=== PATIENT | female | born 1945 | race Caucasian/White ===

== ENCOUNTER 2021-10-27 10:02 | Emergency (ER) | payer MEDICARE, SELFPAY ==
--- NOTE | 2021-10-27 10:12 | ED.GENADULT ---
HPI - General Adult General Chief complaint: Urogenital-Female Stated complaint: Uti complaint Time Seen by Provider: 10/27/21 10:06 History of Present Illness HPI narrative: 76 y/o female. PMHx Presents to [facility] today w/acute complaints of urinary frequency, urgency, and dysuria for the past 24 hours. Client reports a history of frequent UTI, and notes that her initial symptoms generally start very similar to what she has been currently experiencing. She does follow w/OP urology, and tells me that she has had prior cystoscopies, however no significant complications had been appreciated. Denies fevers. No abdominal pain, N/V. No pelvic pain or vaginal discharge. Denies flank pain, hematuria. She has been taking home Azo w/some reliefs. She is without additional acute c/o upon PE. Related Data Home Medications Medication Instructions Recorded Confirmed atenolol 25 mg tablet 25 mg DAILY 10/27/21 10/27/21 atorvastatin 10 mg tablet 10 mg DAILY 10/27/21 10/27/21 hydrochlorothiazide 12.5 mg tablet 12.5 mg DAILY 10/27/21 10/27/21 lisinopril 20 mg tablet 20 mg DAILY 10/27/21 10/27/21 metoprolol succinate 25 mg 25 mg PO DAILY 10/27/21 10/27/21 tablet,extended release 24 hr pantoprazole 40 mg tablet,delayed 40 mg PO BID 10/27/21 10/27/21 release raloxifene 60 mg tablet 60 mg DAILY 10/27/21 10/27/21 Allergies Allergy/AdvReac Type Severity Reaction Status Date / Time No Known Allergies Allergy Verified 10/27/21 10:27 Review of Systems Review of Systems: CONSTITUTIONAL: Denies fever, chills, sweats. EYES: Denies visual changes, redness, discharge. ENT: Denies rhinorrhea, congestion, sore throat, otalgia. CARDIOVASCULAR: Denies chest pain, palpitations, edema. RESPIRATORY: Denies dyspnea, wheezing, cough GASTROINTESTINAL: Denies abdominal pain, nausea, vomiting, diarrhea. GENITOURINARY: Positive urinary frequency, dysuria. No hematuria, abnormal discharge SKIN: Denies rash or itching. MUSCULOSKELETAL: Denies acute back pain, joint pain, or myalgia. NEUROLOGIC: Denies numbness, or focal weakness. PSYCHIATRIC: Denies anxiety or depression. Exam Narrative: GENERAL: This is a well-nourished, well-developed adult, in no apparent distress. HEAD: normocephalic. NOSE: External nose normal. THROAT: Mucous membranes moist. NECK: Neck supple. CARDIOVASCULAR: Regular rate and rhythm. RESPIRATORY: Clear to auscultation. GASTROINTESTINAL: Abdomen soft, non-tender, nondistended. Bowel sounds are active. No signs of acute abdomen. No CVA tenderness. SKIN: warm, intact. NEURO: Alert, and age appropriate. Course Course Emergency Course: Level of Care: Express Care Visit Vital Signs Vital signs: Vital Signs Temperature 36.9 C 10/27/21 10:17 Pulse Rate 66 10/27/21 10:17 Respiratory Rate 18 10/27/21 10:17 Blood Pressure 131/68 10/27/21 10:17 Pulse Oximetry 96 10/27/21 10:17 Oxygen Delivery Room Air 10/27/21 10:17 Temperature 36.9 C 10/27/21 10:17 Pulse Rate 66 10/27/21 10:17 Respiratory Rate 18 10/27/21 10:17 Blood Pressure 131/68 10/27/21 10:17 Pulse Oximetry 96 10/27/21 10:17 Oxygen Delivery Room Air 10/27/21 10:17 Medical Decision Making MDM Narrative Medical decision making narrative: -UTI s/s for the past 24 hours, with Hx including frequent UTI, follows w/Urology. -Urine Dip: 1 + Leukocytes, negative nitrites, 2 + blood. -Afebrile, non-tachycardic, otherwise appears non-toxic. -UTI/Cytitis: Start oral Bactrim OP regimen as directed. -Send for additional CX analysis. -Resume all other AZO and OTC remedies as needed for other symptomatic reliefs. -Urology F/U 1 WK. -ER W/Emergent status changes. Pt agrees. Differential Diagnosis Differential Diagnosis: Differential Diagnosis: Consideration of the following conditions may be warranted for the presenting problem, they are not final diagnoses: Likely UTI, Cystitis, Nephrolithiasis
[2021-10-27 10:17] VITALS: BP 131/68; PULSE 66; RESP 18; TEMP 36.9; O2SAT 96
== END 2021-10-27 10:37 | disposition home or self-care (01) ==
PROVIDERS: Emergency Provider Nurse Practitioner Adult Health; PCP Physician Assistant
DX: N30.90 Cystitis, unspecified without hematuria (principal)
CPT/HCPCS: 81003; 87077; 87086; 87186; 99203; G0463

== ENCOUNTER 2022-07-28 09:54 | Emergency (ER) | payer MEDICARE, SELFPAY ==
[2022-07-28 10:02] VITALS: BP 120/64; PULSE 58; RESP 16; TEMP 36.1; O2SAT 98
--- NOTE | 2022-07-28 10:24 | ED.FEMALEGU ---
HPI - Female Genitourinary General Chief complaint: Urogenital-Female Stated complaint: Female Urogenital Time Seen by Provider: 07/28/22 10:21 Source: patient and RN notes reviewed Mode of arrival: ambulatory Limitations: no limitations History of Present Illness HPI Narrative: 68-year-old female presents with concern for urinary tract infection. She reports urine retention, urgency, burning it started last night. Reports she has gone frequent UTIs, however she has not had 1 since October. She seen a urologist and had a normal exam. She denies fever, aches, chills, sweats, back pain, nausea, vomiting, abdominal pain. Reports suprapubic pressure MD elicited complaint: UTI Related Data Home Medications Medication Instructions Recorded Confirmed atenolol 25 mg tablet 25 mg DAILY 10/27/21 07/28/22 atorvastatin 10 mg tablet 10 mg DAILY 10/27/21 07/28/22 hydrochlorothiazide 12.5 mg tablet 12.5 mg DAILY 10/27/21 07/28/22 lisinopril 20 mg tablet 20 mg DAILY 10/27/21 07/28/22 metoprolol succinate 25 mg 25 mg PO DAILY 10/27/21 07/28/22 tablet,extended release 24 hr pantoprazole 40 mg tablet,delayed 40 mg PO BID 10/27/21 07/28/22 release raloxifene 60 mg tablet 60 mg DAILY 10/27/21 07/28/22 Allergies Allergy/AdvReac Type Severity Reaction Status Date / Time No Known Allergies Allergy Verified 07/28/22 09:56 Review of Systems Review of Systems: CONSTITUTIONAL: Denies malaise, chills, sweats, or fever. CARDIOVASCULAR: Denies chest pain, palpitations, or edema. RESPIRATORY: Denies cough or dyspnea. GASTROINTESTINAL: Denies abdominal pain, nausea, vomiting, diarrhea GENITOURINARY: Reports dysuria, frequency, urgency, suprapubic pressure. Denies flank pain or hematuria. SKIN: Denies rash or itching. MUSCULOSKELETAL: Denies back pain or myalgia. All systems reviewed & are unremarkable except as noted in HPI and below PMFSH Comments At time of signature, agree with nursing past medical, surgical, social and family history. There is no relevant family history pertinent to the presenting complaint Exam Narrative: GENERAL: Well-appearing, well-nourished, and in no acute distress. HEAD: Normocephalic. EYES: PERRLA, conjunctivae clear. NECK: Supple. No lymphadenopathy CHEST: Clear to auscultation. No respiratory distress. HEART: Regular rate and rhythm. ABDOMEN: Soft, nontender upon palpation, nondistended, normal active bowel sounds, no palpable or pulsatile masses, no guarding. No CVA tenderness SKIN: Warm, dry, no rash. NEURO: Alert and oriented x3. PSYCH: Normal mood and affect Course Course Emergency Course: Patient is aware of diagnosis, understands and agrees to treatment plan. Anticipatory guidance given. Patient agrees to follow-up as directed and is aware of reasons to seek care at the emergency department. Portions of this record may have been created with voice recognition software Level of Care: Express Care Visit Vital Signs Vital signs: Vital Signs Temperature 97.0 F L 07/28/22 10:02 Pulse Rate 58 L 07/28/22 10:02 Respiratory Rate 16 07/28/22 10:02 Blood Pressure 120/64 07/28/22 10:02 Pulse Oximetry 98 07/28/22 10:02 Oxygen Delivery Room Air 07/28/22 10:02 Temperature 97.0 F L 07/28/22 10:02 Pulse Rate 58 L 07/28/22 10:02 Respiratory Rate 16 07/28/22 10:02 Blood Pressure 120/64 07/28/22 10:02 Pulse Oximetry 98 07/28/22 10:02 Oxygen Delivery Room Air 07/28/22 10:02 Reviewed. MDM - Female Genitourinary MDM Narrative Medical decision making narrative: Exam findings and UA show no acute concerns or changes; patient is non-toxic appearing and is in no distress. Patient is appropriate for outpatient treatment and follow-up. Differential Diagnosis Differential diagnosis: Likely urinary tract infection and cystitis Lab Data Labs: Urine Glucose Negative Reference Range: N
== END 2022-07-28 10:30 | disposition home or self-care (01) ==
PROVIDERS: Emergency Provider Nurse Practitioner; PCP Physician Assistant
DX: N39.0 Urinary tract infection, site not specified (principal); E78.00 Pure hypercholesterolemia, unspecified; I10 Essential (primary) hypertension; K21.9 Gastro-esophageal reflux disease without esophagitis; M19.90 Unspecified osteoarthritis, unspecified site; Z96.653 Presence of artificial knee joint, bilateral; M81.0 Age-related osteoporosis without current pathological fracture
CPT/HCPCS: 81003; 87077; 87086; 87186; 99213; G0463

== ENCOUNTER 2022-10-28 10:05 | Emergency (ER) | payer MEDICARE, SELFPAY ==
[2022-10-28 10:14] VITALS: BP 133/73; PULSE 56; RESP 16; TEMP 36.2; O2SAT 98
--- NOTE | 2022-10-28 10:21 | ED.FEMALEGU ---
HPI - Female Genitourinary General Chief complaint: Urogenital-Female Stated complaint: Female Urogenital Time Seen by Provider: 10/28/22 10:21 Source: patient Mode of arrival: ambulatory Limitations: no limitations History of Present Illness HPI Narrative: 77-year-old female with history of frequent urinary tract infections presents with complaint urinary frequency, urgency pelvic cramping. Symptoms started last night. Reports she was up 7 8 times during the night to urinate. Has some mild dysuria this morning. Reports this is normally how her urinary tract infections start and then become progressively worse. Denies fever. Denies nausea vomiting. Patient does have a urologist. Has had several test completed and told that everything looks normal. Last urinary tract infection was in July. Patient states she took cephalexin an antibiotic worked well for her. All systems reviewed and negative except as noted above. Related Data Home Medications Medication Instructions Recorded Confirmed atenolol 25 mg tablet 25 mg DAILY 10/27/21 10/28/22 atorvastatin 10 mg tablet 10 mg DAILY 10/27/21 10/28/22 hydrochlorothiazide 12.5 mg tablet 12.5 mg DAILY 10/27/21 10/28/22 lisinopril 20 mg tablet 20 mg DAILY 10/27/21 10/28/22 metoprolol succinate 25 mg 25 mg PO DAILY 10/27/21 10/28/22 tablet,extended release 24 hr pantoprazole 40 mg tablet,delayed 40 mg PO BID 10/27/21 10/28/22 release raloxifene 60 mg tablet 60 mg PO DAILY 10/27/21 10/28/22 estradiol 10 mcg vaginal tablet See Rx Instructions .Route .COMPLEX 10/28/22 10/28/22 (Vagifem) Allergies Allergy/AdvReac Type Severity Reaction Status Date / Time No Known Allergies Allergy Verified 10/28/22 10:13 Review of Systems Review of Systems: CONSTITUTIONAL: Denies fever, chills, or sweats. EYES: Denies visual changes, redness, or discharge. ENT: Denies rhinorrhea, congestion, sore throat, or otalgia. CARDIOVASCULAR: Denies chest pain, palpitations, or edema. RESPIRATORY: Denies cough or dyspnea. GASTROINTESTINAL: Denies abdominal pain, nausea, vomiting, or diarrhea. GENITOURINARY: Reports dysuria, frequency, urgency, pelvic pressure. Denies hematuria. SKIN: Denies rash or itching. MUSCULOSKELETAL: Denies back pain, joint pain, or myalgia. NEUROLOGIC: Denies headache, numbness, or weakness. PSYCHIATRIC: Denies anxiety or depression. All other systems reviewed are negative, except as documented in HPI. PMFSH Comments At time of signature, agree with nursing past medical, surgical, social and family history. There is no relevant family history pertinent to the presenting complaint. Exam Narrative: GENERAL: This is a well-nourished, well-developed patient, in no apparent distress. HEAD: normocephalic, atraumatic. EYES: PERRL. Sclera clear/white. Vision is grossly intact. EARS: External ears normal NOSE: External nose normal NECK: Neck supple, non-tender without lymphadenopathy, masses or thyromegaly. CARDIOVASCULAR: Regular rate and rhythm without murmurs, gallops, or rubs. RESPIRATORY: Clear to auscultation. Breath sounds equal bilaterally. No wheezes, rales, or rhonchi. SKIN: warm, Dry, intact with no suspicious lesions or rash, good texture and turgor. NEURO: awake, alert, and oriented to person, place and time. There were no obvious focal neurologic abnormalities. EXTREMITIES: No joint tenderness, effusion, or edema noted. Course Course Level of Care: Express Care Visit Vital Signs Vital signs: Vital Signs Temperature 36.2 C L 10/28/22 10:14 Pulse Rate 56 L 10/28/22 10:14 Respiratory Rate 16 10/28/22 10:14 Blood Pressure 133/73 10/28/22 10:14 Pulse Oximetry 98 10/28/22 10:14 Oxygen Delivery Room Air 10/28/22 10:14 Temperature 36.2 C L 10/28/22 10:14 Pulse Rate 56 L 10/28/22 10:14 Respiratory Rate 16 10/28/22 10:14 Blood Pressure 133/73 10/28/22 10:14 Pulse Oximetry 98 10/28/22 10:14 Oxygen Del
== END 2022-10-28 10:37 | disposition home or self-care (01) ==
PROVIDERS: Emergency Provider Nurse Practitioner Family; PCP Physician Assistant
DX: N39.0 Urinary tract infection, site not specified (principal); E78.00 Pure hypercholesterolemia, unspecified; I10 Essential (primary) hypertension; K21.9 Gastro-esophageal reflux disease without esophagitis; M19.90 Unspecified osteoarthritis, unspecified site; M81.0 Age-related osteoporosis without current pathological fracture; Z96.653 Presence of artificial knee joint, bilateral
CPT/HCPCS: 81003; 87086; 99213; G0463

== ENCOUNTER 2024-04-22 10:11 | Outpatient (CLI) | payer MEDICARE, SELFPAY ==
[2024-04-22 10:59] LABS: Anion Gap 9 mmol/L (4-12); Blood Urea Nitrogen 16 mg/dL (7-17); Calcium 9.8 mg/dL (8.4-10.2); Carbon Dioxide 27 mmol/L (22-30); Chloride 103 mmol/L (98-107); Estimated Glomerular Filt Rate > 60; Glucose 96 mg/dL (65-110); Potassium 3.9 mmol/L (3.4-5.0); Sodium 139 mmol/L (137-145)
--- OUTSIDE RECORDS SUMMARY | 2024-04-22 11:47 | XMS_ITS | Clinical Summary ---
Author Organization [facility] Address [facility] [place] [address] Care Team Providers Care Dumpster Operator Name Role Phone Parish Amanda PA-C Primary Care Provider [phone] Lavelle Beasley MD Unavailable [phone] Allergies No known active allergies Medications atorvastatin 10 MG tablet Take 1 tablet (10 mg total) by mouth daily. Active atenolol 25 MG tablet Take 1 tablet (25 mg total) by mouth daily. Active multivitamin tablet Take 1 tablet by mouth daily. Active Coenzyme Q10 (CO Q 10) 10 MG Cap Take by mouth daily. Active raloxifene 60 MG tablet TAKE 1 TABLET(60 MG) BY MOUTH DAILY 0 Active vitamin D3, cholecalciferol , 25 MCG (1000 UT) capsule Take 1 capsule (1,000 Units total) by mouth daily. Active Estradiol [address] 10 mcg vaginally twice a week. Active hydroCHLOROthia zide (MICROZIDE) 12.5 MG capsule Take 1 capsule (12.5 mg total) by mouth every morning. Active lisinopril (PRINIVIL) 20 MG tablet Take 1 tablet (20 mg total) by mouth daily. Active probiotic (FLORAJEN3) Cap capsule Take 1 capsule by mouth daily with breakfast. Active conjugated estrogens (PREMARIN) 0.625 MG/GM vaginal cream Place vaginally as needed. 3 Active Magnesium 400 MG Cap Take 1 tablet by mouth daily. Active Flaxseed, Linseed, (FLAXSEED OIL OR) Take 1 tablet by mouth daily. Active Cyanocobalamin (B-12) 2000 MCG Tab Take 1 tablet by mouth daily. Active calcium carb-cholecalci ferol (OSCAL) 250-3.125 MG-MCG tablet Take 1 tablet by mouth daily. Active vitamin C (ASCORBIC ACID) 1000 MG tablet Take 1 tablet (1,000 mg total) by mouth daily. Active dextromethorpha n-guaiFENesin ER (MUCINEX DM) 30-600 MG TABLET SR 12 HR 12 hr tablet Take 1 tablet by mouth every 12 (twelve) hours as needed. Active Active Problems No known active problems Family History Medical History Relation Comments Heart Disease Father Hypertension Mother Relation Status Comments Father Mother Social History Tobacco Use Types Packs/Day Years Used Date Smoking Tobacco: Never Smokeless Tobacco: Never Alcohol Use Standard Drinks/Week Comments No 0 (1 standard drink = 0.6 oz pur e alcohol) Comments No Sex and Gender Information Value Date Recorded Sex Assigned at Not on file Legal Sex Female 6:16 PM CDT Gender Identity Not on file Sexual Orientation Not on file Last Filed Vital Signs Vital Sign Reading Time Taken Comments Blood Pressure 133/64 12/19/2023 12:56 PM PLASTIC SEWER Pulse 63 12/19/2023 12:56 PM PLASTIC SEWER Temperature 35.8 C (96.5 F) 12/19/2023 12:56 PM PLASTIC SEWER Respiratory Rate 16 12/19/2023 12:56 PM PLASTIC SEWER Oxygen Saturation 96% 12/19/2023 12:56 PM PLASTIC SEWER Inhaled Oxygen Concentration - - Weight 79.6 kg (175 lb 7.8 oz) 12/19/2023 9:15 A M PLASTIC SEWER Height 165.1 cm (5' 5 ) 12/19/2023 9:15 AM PLASTIC SEWER Body Mass Index 29.2 12/19/2023 9:15 AM PLASTIC SEWER Plan of Treatment Health Maintenance Due Date Last Done Comments Annual Medicare Wellness Visit 08/29/2008 RSV Immunization or 60+ Years (1 - 1-dose 75+ series) 08/29/2018 DTaP, Tdap and Td Vaccines (2 - Td or Tdap) 10/30/2021 10/31/2011 COVID-19 Vaccine ( season) 2023 05/14/2021, 12/08/2020, 04/06/2020, Additional history exists Influenza Adult (#1) 2023 10/30/2022, 10/30/2021, 10/05/2020, Additional history exists Zoster Vaccines Completed 06/18/2018, 04/17/2018 Pneumococcal Vaccine: 65+ Years Completed 07/13/2020, 10/27/2014 Dexa Scan (General) Completed 07/10/2022, 07/10/2022, 04/10/2020, Additional history exists Meningococcal B Vaccine Aged Out No l onger eligible based on patient's age to complete this topic Meningococcal Vaccine Aged Out No geoffrey georgette eligible based on patient's age to complete this topic RSV Immunizations Under 20 Months Aged Out No longer eligible based on patient's age to complete this topic Medical Devices Implanted Type Area Marble Ceiling Installer Device Identifier Shelf Expiration Date Model / Serial / Lot Knee Components Knee Components Implant [employer] Toe Flexible Hinge Size 2s - [id number] Implanted:Qty : 1 on 10/04/2022 by Merlin Vega DPM at [facility] Toe Left: Foot [employer] [id number] 07/18/2030 [id number] / / [id number] Description:HINGE TOE Hammetoe Fixation Implanted:Qty : 1 on 10/04/2022 by Merlin Vega DPM at [facility] Toe Left: Foot [employer] [id number] 06/21/2025 [id number] / / [id number] Description:HAMMERTOE FIXATI ON Insurance [employer] Care Teams Dumpster Operator Relationship Specialty Start Date End Date Parish Amanda PA-C PCP - General 07/28/15 Lavelle Beasley MD [address] [place], [place] [id number] CARDIOVASCULAR DISEASE 12/16/23
--- OUTSIDE RECORDS SUMMARY | 2024-04-22 11:47 | XMS_ITS | Encounter Summary ---
Author Organization [facility] Facility Care Team Providers Care Talent Scout Name Role Phone Parish Amanda Primary Care Provider [phone] Pérez Thakur MD Unavailable [phone] Parish Amanda Primary Care Provider [phone] Encounter Details Date Type Department Care Team (Latest Contact Info) Description 03/24/2017 Orders Only [facility] CLINCONV ProviderRomán MD [address] [place] [id number] Social History Tobacco Use Types Packs/Day Years Used Date Smoking Tobacco: Never Assessed Comments Unknown Sex and Gender Information Value Date Recorded Sex Assigned at Not on file Legal Sex Female 10:44 AM BUSINESS CONTINUITY COORDINATOR Gender Identity Female 02/21/2021 1:01 PM BUSINESS CONTINUITY COORDINATOR Sexual Orientation Not on file documented as of this encounter Plan of Treatment Not on file documented as of this encounter Procedures Procedure Name Priority Date/Time Associated Diagnosis Comments SCAN - PATHOLOGY 04/09/2017 12:0 0 AM BUSINESS CONTINUITY COORDINATOR documented in this encounter Results * SCAN - PATHOLOGY (04/09/2017 12:00 AM BUSINESS CONTINUITY COORDINATOR) Narrative 04/09/2017 12:00 AM BUSINESS CONTINUITY COORDINATOR Ordered by an unspecified provider. Historical Provider Final Res ult documented in this encounter Visit Diagnoses Not on filedocumented in this encounter Care Teams Talent Scout Relationship Specialty Start Date End Date Parish Amanda PA PCP - General 09/16/18 10/28/23 Parish Amanda PA [address] [facility] [address] [place], [place] [address] PCP - General Family Medicine 04/13/24 Pérez Thakur MD [address] [place] [id number] Consulting Physician General Surgery 03/27/21 documented as of this encounter
--- OUTSIDE RECORDS SUMMARY | 2024-04-22 11:47 | XMS_ITS | Encounter Summary ---
Author Organization [facility] Facility Care Team Providers Care Bladder Blower Name Role Phone Parish Amanda Primary Care Provider [phone] Pérez Thakur MD Unavailable [phone] Parish Amanda Primary Care Provider [phone] Encounter Details Date Type Department Care Team (Latest Contact Info) Description 03/11/2016 Orders Only [facility] CLINCONV ProviderRomán MD [address] [place] [id number] Social History Tobacco Use Types Packs/Day Years Used Date Smoking Tobacco: Never Assessed Comments Unknown Sex and Gender Information Value Date Recorded Sex Assigned at Not on file Legal Sex Female 10:44 AM MILK PICKUP DRIVER Gender Identity Female 02/21/2021 1:01 PM MILK PICKUP DRIVER Sexual Orientation Not on file documented as of this encounter Plan of Treatment Not on file documented as of this encounter Procedures Procedure Name Priority Date/Time Associated Diagnosis Comments SCAN - LABS 03/11/2016 12:00 AM MILK PICKUP DRIVER documented in this encounter Results * SCAN - LABS (03/11/2016 12:00 AM MILK PICKUP DRIVER) Narrative 03/11/2016 12:00 AM MILK PICKUP DRIVER Ordered by an unspecified provider. Historical Provider Final Res ult documented in this encounter Visit Diagnoses Not on filedocumented in this encounter Care Teams Bladder Blower Relationship Specialty Start Date End Date Parish Amanda PA PCP - General 8/7/19 9/17/24 Parish Amanda PA [address] [facility] [address] [place] [address] PCP - General Family Medicine 04/13/24 Pérez Thakur MD [address] [place] [id number] Consulting Physician General Surgery 03/27/21 documented as of this encounter
--- OUTSIDE RECORDS SUMMARY | 2024-04-22 11:47 | XMS_ITS ---
Author Organization [facility] Address [address] [place], [place] [id number] Care Team Providers Care Buffing Wheel Former Automatic Name Role Phone RUDY MAS Unavailable [phone] Parish Amanda Unavailable Unavailable REASON FOR VISIT Patient returns 1 week s/p exostectomy of her 2nd digit. She is doing well Medications Medication SIG (Take, Route, Frequency, Duration) Notes Start Date End Date Status atorvastatin 10 MG Oral Tablet [Lipitor] ORAL atorvastatin 10 MG Oral Tabl et [Lipitor]Original Medicationatorvastatin 10 MG Oral Tablet [Lipitor] *Reorder from [employer] for eRx and Interaction Alerts* 015 Active esomeprazole 40 MG Delayed Release Oral Capsule [Nexium] ORAL esomeprazole 40 MG Delayed Release Oral Capsule [Nexium]Original Medicationesomeprazole 40 MG Delayed Release Oral Capsule [Nexium] *Reorder from [employer] for eRx and Interaction Alerts* 015 Active Atenolol 25 MG Oral Tablet ORAL atenolol 25 MG Oral TabletOriginal Medicationatenolol 25 MG Oral Tablet *Reorder from [employer] for eRx and Interaction Alerts* 015 Active HYDROcodone-Acetaminop hen 5-325 MG 1 tablet as needed Orally every 6 hrs As needed for pain. 024 Active raloxifene hydrochloride 60 MG Oral Tablet [Evista] ORAL raloxifene hydrochloride 60 MG Oral Tablet [Evista]Original Medicationraloxifene hydrochloride 60 MG Oral Tablet [Evista] *Reorder from [employer] for eRx and Interaction Alerts* 015 Active hydrochlorothiazide 25 MG / lisinopril 20 MG Oral Tablet ORAL hydrochlorothiazide 25 MG / lisinopril 20 MG Oral TabletOriginal Medicationhydrochlorothiazide 25 MG / lisinopril 20 MG Oral Tablet *Reorder from [facility] for eRx and Interaction Alerts* 015 Active Vital Signs Weight 170 lbs 12/24/2023 Weight-kg 77.11 kg 12/24/2023 Height 66.00 in 12/24/2023 Height-cm 167.64 cm 12/24/2023 BMI 27.44 kg/m2 12/24/2023 Encounters Encounter Location Date Provider Diagnosis [facility] [address] [facility] [address] [place], [place] [id number] 12/24/2023 RUDY MAS Osteophyte, left foot M25.775 and Encounter for other specified surgical aftercare Z48.89 Assessments Encounter Date Diagnosis (ICD Code) Assessment Notes Treatment Notes Treatment Clinical Notes Section Notes 12/24/2023 Osteophyte, left foot (ICD-10 - M25.775) Dressing Change: The old dressing was removed. Utilizing aseptic technique, a new sterile compression dressing was applied. Patient was instructed to keep it dry and not remove it. Continue post-operative restrictions. Keep foot and dressing dry. Wear surgical shoe at all times when bearing weight. Decrease activity. 12/24/2023 Encounter for other specified surgical aftercare (ICD-10 - Z48.89) Plan Of Treatment Treatment Notes Assessment Notes Osteophyte, left foot Dressing Change: The old dressing was removed. Utilizing aseptic technique, a new sterile compression dressing was applied. Patient was instructed to keep it dry and not remove it. Continue post-operative restrictions. Keep foot and dressing dry. Wear surgical shoe at all times when bearing weight. Decrease activity. Next Appt Details Follow Up: 1 Week, Reason: S uture removal. Progress to regular shoes. NO xrays needed Progress Notes * ANSHUL GREGORIODOB:1945 (78 yo F)Acc No.[id number]:12/24/2023 Patient: ANSHUL GARZA Provider: Anthony Mas DPM :1945 A ge:78 Y S ex:Female Date:12/24/2023 Address:[place], [id number] Subjective: * Chief Complaints: * Albert eng returns 1 week s/p exostectomy of her 2nd digit. She is doing well * HPI: H PI: Follow Up Visit Albert eng presents for follow up visit for post operative on the left foot. Patient states it is going good. , MA: YUN. * Medical History: * Surgical History: * Hospitalization/Major Diagno stic Procedure: * Family History: F ather: PRN - Father: :: Stroke,,known absent , :: Hypertension,,known absent . M other: PRN - Mother: :: Hypertension,,known absent . * Medications: T akingAtenolol 25 MG Oral Tablet ORAL , Notes to Pharmacist: atenolol 25 MG Oral TabletOriginal Medicationatenolol 25 MG Oral Tablet *Reorder from [employer] for eRx and Interaction Alerts*atorvastatin 10 MG Oral Tablet [Lipitor] ORAL , Notes to Pharmacist: atorvastatin 10 MG Oral Tablet [Lipitor]Original Medicationatorvastatin 10 MG Oral Tablet [Lipitor] *Reorder from [employer] for eRx and Interaction Alerts*esomeprazole 40 MG Delayed Release Oral Capsule [Nexium] ORAL , Notes to Pharmacist: esomeprazole 40 MG Delayed Release Oral Capsule [Nexium]Original Medicationesomeprazole 40 MG Delayed Release Oral Capsule [Nexium] *Reorder from [employer] for eRx and Interaction Alerts*hydrochlorothiazide 25 MG / lisinopril 20 MG Oral Tablet ORAL , Notes to Pharmacist: hydrochlorothiazide 25 MG / lisinopril 20 MG Oral TabletOriginal Medicationhydrochlorothiazide 25 MG / lisinopril 20 MG Oral Tablet *Reorder from [employer] for eRx and Interaction Alerts*raloxifene hydrochloride 60 MG Oral Tablet [Evista] ORAL , Notes to Pharmacist: raloxifene hydrochloride 60 MG Oral Tablet [Evista]Original Medicationraloxifene hydrochloride 60 MG Oral Tablet [Evista] *Reorder from [employer] for eRx and Interaction Alerts*HYDROcodone-Acetaminophen 5-325 MG Tablet 1 tablet as needed Orally every 6 hrs As needed for pain.Medication List reviewed and reconciled with the patientTaking Atenolol 25 MG Oral Tablet ORAL , Notes to Pharmacist: atenolol 25 MG Oral TabletOriginal Medicationatenolol 25 MG Oral Tablet *Reorder from [facility] for eRx and Interaction Alerts*Taking atorvastatin 10 MG Oral Tablet [Lipitor] ORAL , Notes to Pharmacist: atorvastatin 10 MG Oral Tablet [Lipitor]Original Medicationatorvastatin 10 MG Oral Tablet [Lipitor] *Reorder from [facility] for eRx and Interaction Alerts*Taking esomeprazole 40 MG Delayed Release Oral Capsule [Nexium] ORAL , Notes to Pharmacist: esomeprazole 40 MG Delayed Release Oral Capsule [Nexium]Original Medicationesomeprazole 40 MG Delayed Release Oral Capsule [Nexium] *Reorder from [facility] for eRx and Interaction Alerts*Taking hydrochlorothiazide 25 MG / lisinopril 20 MG Oral Tablet ORAL , Notes to Pharmacist: hydrochlorothiazide 25 MG / lisinopril 20 MG Oral TabletOriginal Medicationhydrochlorothiazide 25 MG / lisinopril 20 MG Oral Tablet *Reorder from [facility] for eRx and Interaction Alerts*Taking raloxifene hydrochloride 60 MG Oral Tablet [Evista] ORAL , Notes to Pharmacist: raloxifene hydrochloride 60 MG Oral Tablet [Evista]Original Medicationraloxifene hydrochloride 60 MG Oral Tablet [Evista] *Reorder from [facility] for eRx and Interaction Alerts*Taking HYDROcodone-Acetaminophen 5-325 MG Tablet 1 tablet as needed Orally every 6 hrs As needed for pain.Medication List reviewed and reconciled with the patient Objective: * Vitals: W t: 170 lbs, Wt-k.11 kg, Ht: 66.00 in, Ht-cm: 167.64 cm, BMI: 27.44 Index, Body Surface Area: 1.89. * Examination: D ermatologic: Skin findings: T he dressing is clean and dry. Sutures are in place. No erythema, calor, active drainage, or dehiscence noted. V ascular: Post Op E neeta is consistent for post-operative treatment course. N eurologic: Gross sensation G ross sensation is intact to light touch.? M usculoskeletal: Post Op N o calf pain noted. R adiographs: Left Foot T he condyles on the medial aspect of the 2nd digit are no longer prominent. Assessment: * Assessment: 1. O steophyte, left foot - M25.775 (Primary) 2 . E ncounter for other specified surgical aftercare - Z48.89 Plan: * Treatment: * Procedure Codes: 9 9024 POSTOP FOLLOW-UP VISIT * Follow Up: 1 Week (Reason: Suture removal. Progress to regular shoes. NO xrays needed) * Billing Information: * Visit Code: * Procedure Codes: 69255 POSTOP FOLLOW-UP VISIT. * W FEEDER Sign off status: Completed true * Provider: Anthony Mas DPM Date: 1 02/22/2023 Generated for Oscar albarran/Juma/Олег on: 0 04/22/2024 11:47 AM CDT History and Physical Notes * HPI (History of Present Illness) Category Sub-Category Detail Notes Category Not es HPI Follow Up Visit Patient presents for follow up visit for post operative on the left foot. Patient states it is going good. , MA: CAROLINAR Examination Category Sub-Category Detail Notes Category Not es Dermatologic Skin findings: The dressing is clean and dry. Sutures are in place. No erythema, calor, active drainage, or dehiscence noted Neurologic Gross sensation Gross sensation is intact to light touch Vascular Post Op Edema is consist ent for post-operative treatment course Musculoskeletal Post Op No calf pain noted Radiographs Left Foot The condyles on the medial aspect of the 2nd digit are no longer prominent
--- OUTSIDE RECORDS SUMMARY | 2024-04-22 11:47 | XMS_ITS | Referral Summary ---
Author Organization [facility] Address [address] [place] [address] Care Team Providers Care Revenue Officer Name Role Phone Amado High MD Unavailable [phone] Parish Amanda PA-C Primary Care Provider [phone] Source Comments [facility],non-owned Affiliates and Associated Physician Practices is amultiple site organization consisting of ambulatory clinics and hospital sitesin [place], [place], [place] and [place]. This disclosure is being madepursuant to the Care Everywhere program and may not contain all informatio navailable regarding this patient. Last updated 17.[facility] Allergies No known active allergies Medications * Be aware that medications may not be up to date on this document. Alwaysverify current medications with the patient. Medication Sig Dispensed Refills Start Date End Date Status atenolol (TENORMIN) 25 MG tablet TK 1 T PO QD 3 05/06/2018 Active atorvastatin (LIPITOR) 10 MG tablet TK 1 T PO QHS 3 05/06/2018 Active Cholecalciferol 1000 UNIT/10ML Active Coenzyme Q10 (CO Q 10) 10 MG Active estradiol (VAGIFEM) 10 MCG vaginal tablet Insert 10 mcg into the vagina Two times a week Active Flaxseed, Linseed, (FLAXSEED OIL) 1000 MG Take 1 tablet by mouth once daily Active Lactobacillus Casei-Folic Acid 15-0.25 MG PACK Take 1 tablet by mouth once daily Active lisinopril-hydroCHLO ROthiazide (PRINZIDE; ZESTORETIC) 20-25 MG tablet TK 1 T PO QD 3 05/06/2018 Active multivitamin (OPURITY) CHEW tablet Take 1 tablet by mouth Active omeprazole (PRILOSEC) 20 MG capsule Take 20 mg by mouth once daily Active ondansetron, disintegrating, (ZOFRAN ODT) 4 MG tablet Take 4 mg by mouth 01/02/2018 Active PARoxetine (PAXIL) 10 MG tablet Take 10 mg by mouth Active raloxifene (EVISTA) 60 MG tablet TK 1 T PO QD 0 05/06/2018 Active saccharomyces (FLORASTOR EXTRA STR) 250 MG capsule Activ e SHINGRIX 50 MCG/0.5ML SUSR injection 06/18/2018 Active celecoxib (CELEBREX) 200 MG capsuleIndications:P resence of both artificial knee joints,Right hip pain Take 1 (one) capsule by mouth 2 times daily 60 capsule 5 04/11/2020 Active Active Problems Problem Noted Date Diagnosed Date Primary osteoarthritis of right hip 04/12/2020 Presence of both artificial knee joints 06/24/19 19 Social History Tobacco Use Types Packs/Day Years Used Date Smoking Tobacco: Unknown Alcohol Use Standard Drinks/Week Comments Not Asked 0 (1 standard drink = 0.6 oz pur e alcohol) Sex and Gender Information Value Date Recorded Sex Assigned at Female 04/10/2020 5:07 PM [employer] OFFICER Gender Identity Female 04/10/2020 5:07 PM [employer] OFFIC[employer] Sexual Orientation Not on file Last Filed Vital Signs Vital Sign Reading Time Taken Comments Blood Pressure - - Pulse - - Temperature - - Respiratory Rate - - Oxygen Saturation - - Inhaled Oxygen Concentration - - Weight 81.6 kg (180 lb) 06/23/2018 2:01 PM CDT Height 167.6 cm (5' 6 ) 06/23/2018 2:01 PM CDT Body Mass Index 29.05 06/23/2018 2:01 PM CDT Plan of Treatment Not on file Care Teams Revenue Officer Relationship Specialty Start Date End Date Parish Amanda PA-C PCP - General 06/18/11 Amado High MD Orthopedic Surgery 06/18/11
--- OUTSIDE RECORDS SUMMARY | 2024-04-22 11:47 | XMS_ITS | Clinical Summary ---
Author Organization [facility] Address [address] [place] [address] Care Team Providers Care Waiter/Waitress Tourist Class Name Role Phone Amado High MD Unavailable [phone] Parish Amanda PA-C Primary Care Provider [phone] Source Comments [facility],non-owned Affiliates and Associated Physician Practices is amultiple site organization consisting of ambulatory clinics and hospital sitesin [place], [place], [place] and [place]. This disclosure is being madepursuant to the Care Everywhere program and may not contain all information available regarding this patient. Last updated 17.[facility] Allergies No known active allergies Medications * [...] Sex Assigned at Female 04/10/2020 5:07 PM DIRECTOR SCRIPT Gender Identity Female 04/10/2020 5:07 PM DIRECTOR SCRIPT Sexual Orientation Not on file Last Filed [...] 06/23/2018 2:01 PM CDT Plan of Treatment Health Maintenance Due Date Last Done Comments BONE DENSITY TESTING 1945 DTAP/TDAP/TD VACCINES (1 - Tdap) 08/29/1962 PNEUMOCOCCAL VACCINE 50+ (1 of 1 - PCV) 08/29/1993 ZOSTER VACCINE (1 of 2) 08/29/1993 Respiratory Syncytial Virus (RSV) Vaccine Pt: or over 60 yrs (1 - 1-dose 75+ series) 08/29/2018 COVID-19 VACCINE (1 - season) 2023 INFLUENZA VACCINE (#1) 2023 0, 11/04/2018, 11/06/2017, Additional history exists DEPRESSION SCREENING 02/11/2024 MEDICARE AWV CALENDAR YEAR 2024 HEPATITIS B VACCINE Aged Out No longe r eligible based on patient's age to complete this topic HIB VACCINE Aged Out No longer eligi ble based on patient's age to complete this topic HPV VACCINE Aged Out No longer eligi ble based on patient's age to complete this topic MENINGOCOCCAL (Group B) VACCINE SHARED DECISION-MAKING Aged Out No longer eligible based on patient's age to complete this topic MENINGOCOCCAL GROUPS A/C/Y/W VACCINE Aged Out No longer eligible based on patient's age to complete this topic Care Teams Waiter/Waitress Tourist Class Relationship Specialty Start Date End Date Parish Amanda PA-C PCP - General 06/18/11 Amado High MD Orthopedic Surgery 06/18/11
--- OUTSIDE RECORDS SUMMARY | 2024-04-22 11:47 | XMS_ITS | Encounter Summary ---
Author Organization [facility] Care Team Providers Care Corporate Consultant Name Role Phone Parish Amanda Primary Care Provider [phone] Pérez Thakur MD Unavailable [phone] Parish Amanda Primary Care Provider [phone] Encounter Details Date Type Department Care Team (Latest Contact Info) Description 07/30/2015 Orders Only [facility] ProviderRomán MD [address] [place] [id number] Social History Tobacco Use Types Packs/Day Years Used Date Smoking Tobacco: Never Assessed Comments Unknown Sex and Gender Information Value Date Recorded Sex Assigned at Not on file Legal Sex Female 10:44 AM [employer]IL[employer] DIRECTOR Gender Identity Female 02/21/2021 1:01 PM [employer]ILDR[employer] DIRECTOR Sexual Orientation Not on file documented as of this encounter Plan of Treatment Not on file documented as of this encounter Procedures Procedure Name Priority Date/Time Associated Diagnosis Comments SCAN - LABS 07/30/2015 12:00 AM CDT documented in this encounter Results * SCAN - LABS (07/30/2015 12:00 AM CDT) Narrative 07/30/2015 12:00 AM CDT Ordered by an unspecified provider. Historical Provider Final Res ult documented in this encounter Visit Diagnoses Not on filedocumented in this encounter Care Teams Corporate Consultant Relationship Specialty Start Date End Date Parish Amanda PA PCP - General 09/16/18 10/28/23 Parish Amanda PA [address] [facility] [address] [place], [place] [phone] PCP - General Family Medicine 04/13/24 Pérez Thakur MD [address] [place] [phone] Consulting Physician General Surgery 03/27/21 documented as of this encounter
--- OUTSIDE RECORDS SUMMARY | 2024-04-22 11:47 | XMS_ITS | Patient Health Record ---
Author Organization [facility] Address [address] [place], [place] [id number] Care Team Providers Care Recruitment Manager Name Role Phone RUDY MAS Unavailable [phone] [place] Amanda Unavailable Unavailable Allergies No Known Allergies Reason For Referral No Information Medications Medication SIG (Take, Route, Frequency, Duration) Notes Start Date End Date Status raloxifene hydrochloride 60 MG Oral Tablet [Evista] ORAL raloxifene hydrochloride 60 MG Oral Tablet [Evista]Original Medicationraloxifene hydrochloride 60 MG Oral Tablet [Evista] *Reorder from [employer] for eRx and Interaction Alerts* 015 Active HYDROcodone-Acetaminop hen 5-325 MG 1 tablet as needed Orally every 6 hrs As needed for pain. 024 Active atorvastatin 10 MG Oral Tablet [Lipitor] ORAL atorvastatin 10 MG Oral Tabl et [Lipitor]Original Medicationatorvastatin 10 MG Oral Tablet [Lipitor] *Reorder from [employer] for eRx and Interaction Alerts* 015 Active Atenolol 25 MG Oral Tablet ORAL atenolol 25 MG Oral TabletOriginal Medicationatenolol 25 MG Oral Tablet *Reorder from [employer] for eRx and Interaction Alerts* 015 Active hydrochlorothiazide 25 MG / lisinopril 20 MG Oral Tablet ORAL hydrochlorothiazide 25 MG / lisinopril 20 MG Oral TabletOriginal Medicationhydrochlorothiazide 25 MG / lisinopril 20 MG Oral Tablet *Reorder from [employer] for eRx and Interaction Alerts* 015 Active esomeprazole 40 MG Delayed Release Oral Capsule [Nexium] ORAL esomeprazole 40 MG Delayed Release Oral Capsule [Nexium]Original Medicationesomeprazole 40 MG Delayed Release Oral Capsule [Nexium] *Reorder from [employer] for eRx and Interaction Alerts* 015 Active Vital Signs Height-cm 167.64 cm 02/25/2024 Weight-kg 77.11 kg 02/25/2024 Height 66.00 in 02/25/2024 Weight 170 lbs 02/25/2024 BMI 27.44 kg/m2 02/25/2024 Encounters Encounter Location Date Provider Diagnosis [address] [id number] 12/19/2023 RUDY SNOOK [facility] [address] [place], [place] [id number] 09/24/2023 RUDY SNOOK Osteophyte, left foot M25.775 ; Acquired keratosis [keratoderma] palmaris et plantaris L85.1 and Pain in left toe(s) M79.675 [facility] [address] [place], [place] [id number] 10/15/2023 RUDY SNOOK Osteophyte, left foot M25.775 ; Acquired keratosis [keratoderma] palmaris et plantaris L85.1 and Pain in left toe(s) M79.675 [facility] [address] [place], [place] [id number] 10/28/2023 RUDY SNOOK Osteophyte, left foot M25.775 ; Acquired keratosis [keratoderma] palmaris et plantaris L85.1 ; Pain in left toe(s) M79.675 and Encounter for other specified surgical aftercare Z48.89 [facility] [address] [place], [place] [id number] 11/05/2023 RUDY SNOOK Osteophyte, left foot M25.775 ; Acquired keratosis [keratoderma] palmaris et plantaris L85.1 and Pain in left toe(s) M79.675 [facility] [address] [place], [place] [id number] 12/24/2023 RUDY SNOOK Osteophyte, left foot M25.775 and Encounter for other specified surgical aftercare Z48.89 [facility] [address] [place], [place] [id number] 12/31/2023 RUDY SNOOK Osteophyte, left foot M25.775 and Encounter for other specified surgical aftercare Z48.89 [facility] [address] [place], [place] [id number] 02/25/2024 RUDY SNOOK Ingrowing nail L60.0 ; Other hammer toe(s) (acquired), left foot M20.42 ; Pain in right toe(s) M79.674 and Encounter for other specified surgical aftercare Z48.89 [facility] [address] [place], [place] [id number] 12/17/2023 RUDY SNOOK [facility] [address] [place], [place] [id number] 09/24/2023 [facility] [address] [place], [place] [id number] 10/13/2023 Assessments Encounter Date Diagnosis (ICD Code) Assessment Notes Treatment Notes Treatment Clinical Notes Section Notes 09/24/2023 Acquired keratosis [keratoderma] palmaris et plantaris (ICD-10 - L85.1) A total of 1 corns or calluses, as described in the note above, were cut and pared utilizing a #15 blade 09/24/2023 Osteophyte, left foot (ICD-10 - M25.775) Exostosis: Discussed various treatments for the exostosis including padding, extra-depth shoes, and surgical resection. Padding: Application of accomodative padding to offload pressure from area. 10/15/2023 Acquired keratosis [keratoderma] palmaris et plantaris (ICD-10 - L85.1) A total of 1 corns or calluses, as described in the note above, were cut and pared utilizing a #15 blade 10/15/2023 Osteophyte, left foot (ICD-10 - M25.775) Exostosis: Discussed various treatments for the exostosis including padding, extra-depth shoes, and surgical resection. Padding: Application of accomodative padding to offload pressure from area. 12/24/2023 Osteophyte, left foot (ICD-10 - M25.775) [...] other specified surgical aftercare (ICD-10 - Z48.89) 12/31/2023 Osteophyte, left foot (ICD-10 - M25.775) Suture Removal: The sutures were removed. Surgical Restriction Release: Patient may resume normal bathing. Return to normal shoes. Gradual return to activities as tolerated. Patient instructed to contact the office if any issues arise. 12/31/2023 Encounter for other specified surgical aftercare (ICD-10 - Z48.89) 02/25/2024 Ingrowing nail (ICD-10 - L60.0) Slant Back Toenail: Following skin prep, the offending nail border was debrided without anesthesia. The patient was instructed on monitoring for infection or recurrence. Soaks: Patient was instructed to soak the affected foot with warm water and epsom salts 15 minutes twice a day. 02/25/2024 Other hammer toe(s) (acquired), left foot (ICD-10 - M20.42) Resolved. 10/28/2023 Acquired keratosis [keratoderma] palmaris et plantaris (ICD-10 - L85.1) A total of 1 corns or calluses, as described in the note above, were cut and pared utilizing a #15 blade 10/28/2023 Osteophyte, left foot (ICD-10 - M25.775) Exostosis: Discussed various treatments for the exostosis including padding, extra-depth shoes, and surgical resection. Padding: Application of accomodative padding to offload pressure from area. 11/05/2023 Acquired keratosis [keratoderma] palmaris et plantaris (ICD-10 - L85.1) Emollient: Recommend that the patient use an emollient such as [id number] Eucerin cream, Vanicream, or other lotion to the affected area. 11/05/2023 Osteophyte, left foot (ICD-10 - M25.775) Surgical Consult: We discussed both conservative and surgical treatment options. We discussed the intra-operative and post-operative treatment course. We discussed the risks and complications including, but not limited to: pain, infection, swelling, numbness, under-correction, over-correction, stiffness, no improvement, and need for further surgery. No guarantees were given, nor implied. Questions encouraged and answered. Consent reviewed and placed in chart. The following procedures are proposed: Exostectomy left 2nd digit 11/05/2023 Pain in left toe(s) (ICD-10 - M79.675) 10/28/2023 Pain in left toe(s) (ICD-10 - M79.675) 02/25/2024 Pain in right toe(s) (ICD-10 - M79.674) 10/15/2023 Pain in left toe(s) (ICD-10 - M79.675) 09/24/2023 Pain in left toe(s) (ICD-10 - M79.675) 02/25/2024 Encounter for other specified surgical aftercare (ICD-10 - Z48.89) 10/28/2023 Encounter for other specified surgical aftercare (ICD-10 - Z48.89) Plan Of Treatment No Information Insurance Providers Payer Name Payer Address Payer Phone Subscriber Number Group Number Insured Name Patient Relationship to Insured Coverage Start Date Coverage End Date [address] [place] [phone] [id number] ANSHUL GREGORIO Self - patient is the insured Medical (General) History Medical History History ICD Code acid reflux artificial joint GERD Leg/Feet cramps Back Trouble hypertension Surgical History Surgery Date(Month/Year) Knee Surgery Hernia
--- OUTSIDE RECORDS SUMMARY | 2024-04-22 11:47 | XMS_ITS | Data Portability ---
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 Hypertension, blood pressure is suboptimally controlled I recommended increase lisinopril to 40 mg p.o. daily I will continue hydrochlorothiazide 12.5 mg a day. I also added potassium 20 mEq p.o. daily I will check a basic metabolic profile in 2 weeks. Hyperlipidemia, continue with Lipitor I will check a lipid profile and CMP in 3 months before follow-up I will see her again 3 months to evaluate her blood pressure control. October 24, 2023: Palpitation, currently she is on atenolol 25 mg p.o. daily and she is bradycardic I recommended her to decrease atenolol to 12.5 mg p.o. daily. Hypertension, blood pressure is well-controlled continue with lisinopril along with hydrochlorothiazide. Hyperlipidemia , LDL is at goal. I will see her again 6 months check lipid profile and CMP before follow-up. [email or web address] Not available 10/24/2023 11:44:17 03/03/2024 03/03/2024 77-year-old torres michelle who has a history of hypertension and hyperlipidemia she was seen in ER on June 1507/2023 with palpitation at that time she was in sinus tachycardia with hypokalemia potassium was 3.1 since she receives potassium supplements symptoms improved. Hypertension, blood pressure is suboptimally controlled I recommended increase lisinopril to 40 mg p.o. daily I will continue hydrochlorothiazide 12.5 mg a day. I also added potassium 20 mEq p.o. daily I will check a basic metabolic profile in 2 weeks. Hyperlipidemia, continue with Lipitor I will check a lipid profile and CMP in 3 months before follow-up I will see her again 3 months to evaluate her blood pressure control. October 24, 2023: Palpitation, currently she is on atenolol 25 mg p.o. daily and she is bradycardic I recommended her to decrease atenolol to 12.5 mg p.o. daily. Hypertension, blood pressure is well-controlled continue with lisinopril along with hydrochlorothiazide. Hyperlipidemia , LDL is at goal. I will see her again 6 months check lipid profile and CMP before follow-up. March 03, 2024: Palpitation , on her rhythm strip I noticed that she has PACs. There was no evidence of atrial fibrillation. I assured her that these PACs gives irregularity in rhythm in her watch misread as atrial fibrillation. I also recommended her to change her atenolol to 12.5 mg p.o. b.i.d.. Hypertension, blood pressure is borderline elevated we will monitor persistently elevated I will up titrate her medication to optimize blood pressure control. Hyperlipidemia, we will check a lipid profile before follow-up I will see her again as scheduled. [email or web address] Not available 03/03/2024 15:21:08 03/18/2024 03/18/2024 77-year-old femkermit michelle who has a history of hypertension and hyperlipidemia she was seen in ER on June 1507/2023 with palpitation at that time she was in sinus tachycardia with hypokalemia potassium was 3.1 since she receives potassium supplements symptoms improved. Hypertension, blood pressure is suboptimally controlled I recommended increase lisinopril to 40 mg p.o. daily I will continue hydrochlorothiazide 12.5 mg a day. I also added potassium 20 mEq p.o. daily I will check a basic metabolic profile in 2 weeks. Hyperlipidemia, continue with Lipitor I will check a lipid profile and CMP in 3 months before follow-up I will see her again 3 months to evaluate her blood pressure control. October 24, 2023: Palpitation, currently she is on atenolol 25 mg p.o. daily and she is bradycardic I recommended her to decrease atenolol to 12.5 mg p.o. daily. Hypertension, blood pressure is well-controlled continue with lisinopril along with hydrochlorothiazide. Hyperlipidemia , LDL is at goal. I will see her again 6 months check lipid profile and CMP before follow-up. March 03, 2024: Palpitation , on her rhythm strip I noticed that she has PACs. There was no evidence of atrial fibrillation. I assured her that these PACs gives irregularity in rhythm in her watch misread as atrial fibrillation. I also recommended her to change her atenolol to 12.5 mg p.o. b.i.d.. Hypertension, blood pressure is borderline elevated we will monitor persistently elevated I will up titrate her medication to optimize blood pressure control. Hyperlipidemia, we will check a lipid profile before follow-up I will see her again as scheduled. March 18, 2024: Palpitation , improved since she increased her atenolol to 25 in the morning and 12-1/2 evening I recommended her to continue current dose. Hypertension, blood pressure is well-controlled. Hyperlipidemia , continue with the atorvastatin 10 mg daily I will check a lipid profile and CMP as she is scheduled. I will see her again as scheduled. [email or web address] Not available 03/18/2024 12:14:17 04/19/2024 04/19/2024 77-year-old fema viviana who has a history of hypertension and hyperlipidemia she was seen in ER on June 1507/2023 with palpitation at that time she was in sinus tachycardia with hypokalemia potassium was 3.1 since she receives potassium supplements symptoms improved. Hypertension, blood pressure is suboptimally controlled I recommended increase lisinopril to 40 mg p.o. daily I will continue hydrochlorothiazide 12.5 mg a day. I also added potassium 20 mEq p.o. daily I will check a basic metabolic profile in 2 weeks. Hyperlipidemia, continue with Lipitor I will check a lipid profile and CMP in 3 months before follow-up I will see her again 3 months to evaluate her blood pressure control. October 24, 2023: Palpitation, currently she is on atenolol 25 mg p.o. daily and she is bradycardic I recommended her to decrease atenolol to 12.5 mg p.o. daily. Hypertension, blood pressure is well-controlled continue with lisinopril along with hydrochlorothiazide. Hyperlipidemia , LDL is at goal. I will see her again 6 months check lipid profile and CMP before follow-up. March 03, 2024: Palpitation , on her rhythm strip I noticed that she has PACs. There was no evidence of atrial fibrillation. I assured her that these PACs gives irregularity in rhythm in her watch misread as atrial fibrillation. I also recommended her to change her atenolol to 12.5 mg p.o. b.i.d.. Hypertension, blood pressure is borderline elevated we will monitor persistently elevated I will up titrate her medication to optimize blood pressure control. Hyperlipidemia, we will check a lipid profile before follow-up I will see her again as scheduled. March 18, 2024: Palpitation , improved since she increased her atenolol to 25 in the morning and 12-1/2 evening I recommended her to continue current dose. Hypertension, blood pressure is well-controlled. Hyperlipidemia , continue with the atorvastatin 10 mg daily I will check a lipid profile and CMP as she is scheduled. I will see her again as scheduled. April 19, 2024: Palpitation, improved since I increased her atenolol to 25 in the morning and 2012.5 mg in the evening. Hypertension, blood pressure is in acceptable range I will continue with atenolol along with the hydrochlorothiazide 12.5 mg a day and lisinopril 40 mg daily. Monitor renal function and electrolytes. Hyperlipidemia , LDL is in acceptable range continue with atorvastatin 10 mg daily. I will see her again in 6 months check lipid profile and CMP before follow-up. [email or web address] Not available 04/19/2024 12:18:58 Plan of Treatment Reminders Order Date Submit Date Provider Last Modified By Organization Details Last Modified Time Details Appointments ANY 15 2024 11:00A M GABINO Guzman Not available Not available Not available ANY 15 2024 10:00A M Lavelle sy MD Not available Not available Not available Lab lipid panel, serum 2024 025 [facility], [address] [place], [address], 04/19/2024 12:19:00 CMP, serum or plasma 2024 025 [facility], [address] [place], [address], 04/19/2024 12:19:00 lipid panel, serum 2023 025 [facility], [address] [place], [address], 04/13/2024 14:02:32 CMP, serum or plasma 2023 025 [facility], [address] [place], [address], 04/12/2024 09:02:21 Referral None record ed. Procedures None record ed. Surgeries None record ed. Imaging electr ocardi ogram 2024 025 [facility] In-Office Order, Internal Use Only DO Not Attach Compendium DO Not Attach Compendium, Do Not Delete/merge, [id number] 03/08/2024 16:16:19 Medication Orders atenol ol 25 mg tablet 2024 025 [id number] [address], [place], [id number], 03/18/2024 12:14:03 Patient TargetsNo targets recorded. Patient Instructions Encounter Date Encounter Id Patient Instructions Last Modified By Organization Details Last Modified Time 03/03/2024 [id number] A healthy lifestyle: care instructions [email or web address] Not available 03/03/2024 17:29:44 03/18/2024 [id number] A healthy lifestyle: care instructions [email or web address] Not available 03/18/2024 12:14:03 04/19/2024 [id number] A healthy lifestyle: care instructions [email or web address] Not available 04/19/2024 12:19:00 Reason for Referral None Reported. Results Created Date Observation Date Name Description Value Unit Range Abnormal Flag Note LastModifiedBy Organization Detail LastModifiedTime 10/20/19 24 10/20/2023 COMPR EHENS NIKKI METAB OLIC PANEL sodium 137 mmol/ L 134-14 4 normal Not Available [facility] (Lab) [address] [place], [address], 10/20/2023 22:03:18 10/20/19 24 10/20/2023 COMPR EHENS NIKKI METAB OLIC PANEL potassium 4.1 mmol/ L 3.5-5. 2 normal Not Available [facility] (Lab) [address] [place], [address], 10/20/2023 22:03:18 10/20/19 24 10/20/2023 COMPR EHENS NIKKI METAB OLIC PANEL chloride 102 mmol/ L 96-106 normal Not Available [facility] (Lab) [address] [place], [address], 10/20/2023 22:03:18 10/20/19 24 10/20/2023 COMPR EHENS NIKKI METAB OLIC PANEL carbon dioxide 28 mmol/ L 20-29 normal Not Available [facility] (Lab) [address] [place], [address], 10/20/2023 22:03:18 10/20/19 24 10/20/2023 COMPR EHENS NIKKI METAB OLIC PANEL anion gap 12.0 mmol/ L Not Available [facility] (Lab) [address] [place], [address], 10/20/2023 22:03:18 10/20/19 24 10/20/2023 COMPR EHENS NIKKI METAB OLIC PANEL blood urea nitrogen 12 mg/dL 8-27 normal Not Available [facility] (Lab) [address] [place], [address], 10/20/2023 22:03:18 10/20/19 24 10/20/2023 COMPR EHENS NIKKI METAB OLIC PANEL creatinine 0.59 mg/dL 0.76-1 .27 low Not Available [facility] (Lab) [address] [place], [address], 10/20/2023 22:03:18 10/20/19 24 10/20/2023 COMPR EHENS NIKKI METAB OLIC PANEL glomerular filtration rate 91 mL/mi n/1 Not Available [facility] (Lab) [address] [place], [address], 10/20/2023 22:03:18 10/20/19 24 10/20/2023 COMPR EHENS NIKKI METAB OLIC PANEL BUN creatinine ratio 21 10-28 normal Not Available [facility] (Lab) [address], [place], [address], 10/20/2023 22:03:18 10/20/19 24 10/20/2023 COMPR EHENS NIKKI METAB OLIC PANEL glucose 92 mg/dL 70-99 normal Not Available [facility] (Lab) [address] [place], [address], 10/20/2023 22:03:18 10/20/19 24 10/20/2023 COMPR EHENS NIKKI METAB OLIC PANEL osmolality calculated 273 280-30 1 low Not Available [facility] (Lab) [address] [place], [address], 10/20/2023 22:03:18 10/20/19 24 10/20/2023 COMPR EHENS NIKKI METAB OLIC PANEL calcium 10.0 mg/dL 8.7-10 .3 normal Not Available [facility] (Lab) [address] [place], [address], 10/20/2023 22:03:18 10/20/19 24 10/20/2023 COMPR EHENS NIKKI METAB OLIC PANEL bilirubin total 1.5 mg/dL 0.0-1. 2 high Not Available [facility] (Lab) [address] [place], [address], 10/20/2023 22:03:18 10/20/19 24 10/20/2023 COMPR EHENS NIKKI METAB OLIC PANEL aspartate amino transferase 22 IU/L 0-40 normal Not Available [facility] (Lab) [address], [place], [address], 10/20/2023 22:03:18 10/20/19 24 10/20/2023 COMPR EHENS NIKKI METAB OLIC PANEL alanine aminotransfe rase 12 IU/L 0-32 normal Not Available [facility] (Lab) [address], [place], [address], 10/20/2023 22:03:18 10/20/19 24 10/20/2023 COMPR EHENS NIKKI METAB OLIC PANEL total protein 6.7 g/dL 6.0-8. 5 normal Not Available [facility] (Lab) [address] [place], [address], 10/20/2023 22:03:18 10/20/19 24 10/20/2023 COMPR EHENS NIKKI METAB OLIC PANEL albumin level 4.1 g/dL 3.8-4. 8 normal Not Available [facility] (Lab) [address], [place], [address], 10/20/2023 22:03:18 10/20/19 24 10/20/2023 COMPR EHENS NIKKI METAB OLIC PANEL globulin 2.6 g/dL 1.5-4. 5 normal Not Available [facility] (Lab) [address] [place], [address], 10/20/2023 22:03:18 10/20/19 24 10/20/2023 COMPR EHENS NIKKI METAB OLIC PANEL albumin globulin ratio 2.0 1.2-2. 2 normal Not Available [facility] (Lab) [address] [place], [address], 10/20/2023 22:03:18 10/20/19 24 10/20/2023 COMPR EHENS NIKKI METAB OLIC PANEL alkaline phosphatase 68 IU/L 44-121 normal Not Available [facility] (Lab) [address] [place], [address], 10/20/2023 22:03:18 10/20/19 24 10/20/2023 LIPID PANEL triglyceride s 116 mg/dL 0-149 normal Not Available [facility] (Lab) [address] [place], [address], 10/20/2023 22:03:18 10/20/19 24 10/20/2023 LIPID PANEL cholesterol 178 mg/dL 100-19 9 normal Not Available [facility] (Lab) [address] [place], [address], 10/20/2023 22:03:18 10/20/19 24 10/20/2023 LIPID PANEL LDL cholesterol 97 mg/dL 0-99 normal Not Available [facility] (Lab) [address] [place], [address], 10/20/2023 22:03:18 10/20/19 24 10/20/2023 LIPID PANEL VLDL cholesterol (calc) 23 mg/dL 5-40 normal Not Available [facility] (Lab) [address], [place], [address], 10/20/2023 22:03:18 10/20/19 24 10/20/2023 LIPID PANEL HDL cholesterol 66 mg/dL 40-999 normal Not Available [facility] (Lab) [address] [place], [address], 10/20/2023 22:03:18 10/20/19 24 10/20/2023 LIPID PANEL LDL HDL ratio 1.5 0-3.2 normal Not Available [facility] (Lab) [address], [place], [address], 10/20/2023 22:03:18 10/20/19 24 10/20/2023 LIPID PANEL chol HDL ratio 3.0 mg/dL 0-4.4 normal Not Available [facility] (Lab) [address], [place], [address], 10/20/2023 22:03:18 03/03/19 25 03/03/2024 elect [facility] diogr am No observ ation record ed. SAMIR In-Office Order Internal Use Only DO Not Attach Compendium DO Not Attach Compendium, Do Not Delete/merge, [id number] 03/03/2024 15:29:10 03/03/19 25 03/03/2024 elect rocar diogr am No observ ation record ed. SAMIR In-Office Order Internal Use Only DO Not Attach Compendium DO Not Attach Compendium, Do Not Delete/merge, [id number] 03/03/2024 18:08:22 Result Notes None recorded. Problems Name Problem SNOMED Code Status Onset Date Resolution Date Notes Provider Name and Address Organization Details Recorded Time Palpitations 63283367 Active 2023 Stefany Meyer [place] null, [place] - [facility] 4 15:19:44 Hyperlipidemia 97192207 Active 2023 Stefany [place], [place] [facility] 4 15:19:45 Essential hypertension 91318797 Active 2023 Stefany [place], [place] [facility] 4 15:19:46 Hypokalemia 06389912 Active 2023 Stefany [place], [place] [facility] 4 15:19:47 Osteoporosis 06122884 Active 2023 GABINO Guzman Attn: [facility] [place], [address], [place] [facility] 4 11:04:20 Gastroesophage al reflux disease without esophagitis 162849488 Active 2023 GABINO Guzman Attn: [facility] [place], [address], [place] [facility] 4 11:04:24 Generalized anxiety disorder 31892203 Active 2023 GABINO Guzman Attn: [facility],[address], [place], [address], [facility] 11:04:26 Adult health examination Active 2023 GABINO Guzman Attn: [facility],[address], [place], [address], [facility] 11:04:28 Problem Notes None recorded. Procedures Surgical History Date Name Laterality Status Provider Name and Address Organization Details Recorded Time hernia repair completed Stefany Meyer MA [facility] 07/15/2023 12:25:41 tonsillectomy completed Stefany Meyer MA [facility] 07/15/2023 12:25:48 biopsy of breast completed Stefany Meyer MA [facility] 07/15/2023 12:25:56 Imaging Results Imaging Date Name Status LastModified by Organization Details LastModified Time 03/03/2024 electrocardiogram completed SAMIR In-Offi ce Order Internal Use Only DO Not Attach Compendium DO Not Attach Compendium, Do Not Delete/merge, [id number] 03/03/2024 15:29:10 03/03/2024 electrocardiogram completed SAMIR In-Offi ce Order Internal Use Only DO Not Attach Compendium DO Not Attach Compendium, Do Not Delete/merge, [id number] 03/03/2024 18:08:22 Procedure Notes None recorded. Medical Equipment None Reported. Allergies No known drug allergies Medications Name Sig Start Date Stop Date Status Note LastModified by Organization Details LastModified Time amoxicillin 500 mg capsule TAKE 1 CAPSULE BY MOUTH TWICE DAILY FOR 7 DAYS 07/15 completed Not Available Not Available Not Available atorvastati n 10 mg tablet TAKE 1 TABLET BY MOUTH EVERY DAY active Not Available Not Available No t Available lisinopril 20 mg-hydrochl orothiazide 12.5 mg tablet Take 1 tablet every day by oral route for 90 days. 07/15 completed Not Available Not Available Not Available ampicillin 500 mg capsule TAKE 1 CAPSULE BY MOUTH THREE TIMES DAILY FOR 7 DAYS 07/15 completed Not Available Not Available Not Available hydrocodone 5 mg-acetamin ophen 325 mg tablet TAKE 1 TABLET BY MOUTH EVERY 6 HOURS NEEDED FOR PAIN active Not Available Not Available No t Available lisinopril 20 mg tablet 07/15 completed Not Available Not Available Not Available atenolol 25 mg tablet TAKE 1 TABLET BY MOUTH TWICE DAILY active Not Available Not Available No t Available ciprofloxac in 500 mg tablet TAKE 1 TABLET BY MOUTH EVERY 12 HOURS FOR 5 DAYS 07/15 completed Not Available Not Available Not Available sulfamethox azole 800 mg-trimetho prim 160 mg tablet TAKE 1 TABLET BY MOUTH TWICE DAILY FOR 3 DAYS 03/18 completed Not Available Not Available Not Available terconazole 80 mg vaginal suppository INSERT ONE APPLICATO RFUL VAGINALLY AT BEDTIME FOR 3 NIGHTS active Not Available Not Available No t Available flaxseed oil 1,000 mg capsule Take 1 capsule every day by oral route. 10/23 completed Not Available Not Available Not Available potassium chloride ER 20 mEq tablet,exte nded release(par t/cryst) 07/15 completed Not Available Not Available Not Available cephalexin 500 mg capsule TAKE 1 CAPSULE BY MOUTH THREE TIMES DAILY FOR 7 DAYS 07/15 completed Not Available Not Available Not Available hydrochloro thiazide 12.5 mg capsule TAKE 1 CAPSULE BY MOUTH EVERY DAY active Not Available Not Available No t Available raloxifene 60 mg tablet TAKE 1 TABLET BY MOUTH EVERY DAY active Not Available Not Available No t Available estradiol 0.01% (0.1 mg/gram) vaginal cream APPLY A PEA SIZED AMOUNT EXTERNALL Y TO VULVA AREA TWICE A WEEK active Not Available Not Available No t Available lisinopril 40 mg tablet TAKE 1 TABLET BY MOUTH EVERY DAY active Not Available Not Available No t Available cefdinir 300 mg capsule 07/15 completed Not Available Not Available Not Available amoxicillin 875 mg-potassiu m clavulanate 125 mg tablet TAKE 1 TABLET BY MOUTH EVERY 12 HOURS FOR 10 DAYS 03/18 completed Not Available Not Available Not Available Vitamin B12 500 mcg tablet Take 1 tablet every day by oral route. active Not Available Not Available No t Available Vitamin D3 25 mcg (1,000 unit) capsule Take 1 capsule every day by oral route. active Not Available Not Available No t Available Premarin 0.625 mg/gram vaginal cream APPLY TO AFFECTED AREA TWICE A WEEK 07/15 completed Not Available Not Available Not Available Multivitami n 50 Plus tablet Take 1 tablet every day by oral route. active Not Available Not Available No t Available nitrofurant oin monohydrate /macrocryst als 100 mg capsule TAKE 1 CAPSULE BY MOUTH TWICE DAILY FOR 5 DAYS active Not Available Not Available No t Available Co Q-10 200 mg capsule Take 1 capsule every day by oral route. active Not Available Not Available No t Available calcium 1200mg daily active Not Available Not Available No t Available flaxseed 1400 1 tablet every day active Not Available Not Available No t Available hydrochloro thiazide 12.5 mg tablet 07/15 completed Not Available Not Available Not Available estradiol 10 mcg vaginal tablet INSERT ONE APPLICATI ON VAGINALLY 2 TIMES PER WEEK active Not Available Not Available No t Available Probiotic active Not Available Not Fernanda ilable Not Available potassium chloride ER 20 mEq tablet,exte nded release TAKE 1 TABLET BY MOUTH EVERY DAY active Not Available Not Available No t Available magnesium 200 mg (as magnesium oxide) chewable tablet Take 1 tablet every day by oral route. active Not Available Not Available No t Available Vitals Date Recorded Body height Body mass index (BMI) Body weight Heart rate Oxygen saturation Oxygen saturation in Arterial blood by Pulse oximetry Provider Name and Address Organization Details Last Updated DateTime 4 165.1 cm 29.3 kg/m2 59483.6 2 g 55 /min 98 % 98 % Stefany Meyer MA [facility] 11:04:02 Date Recorded Systolic blood pressure Diastolic blood pressure Provider Name and Address Organization Details Last Updated DateTime 10/24/2023 134 mm[Hg] 76 mm[Hg] Lavelle Beasley MD Attn: [address] [place], [address], [facility] 10/24/2023 11:36:01 Date Recorded Body height Body mass index (BMI) Body weight Oxygen saturation Oxygen saturation in Arterial blood by Pulse oximetry Heart rate Provider Name and Address Organization Details Last Updated DateTime 4 165.1 cm 29.7 kg/m2 63648.2 4 g 98 % 98 % 58 /min Sima Mora MA [facility] 12:11:18 Date Recorded Systolic blood pressure Diastolic blood pressure Provider Name and Address Organization Details Last Updated DateTime 11/13/2023 120 mm[Hg] 70 mm[Hg] GABINO Guzman Attn: [address] [place], [address], [facility] 11/13/2023 12:28:23 Date Recorded Body height Body mass index (BMI) Body weight Oxygen saturation Oxygen saturation in Arterial blood by Pulse oximetry Heart rate Provider Name and Address Organization Details Last Updated DateTime 5 165.1 cm 30.1 kg/m2 84776.8 6 g 98 % 98 % 93 /min Stefany Meyer MA [facility] 14:52:25 Date Recorded Systolic blood pressure Diastolic blood pressure Provider Name and Address Organization Details Last Updated DateTime 03/03/2024 140 mm[Hg] 80 mm[Hg] Lavelle Beasley MD Attn: [address] [place], [address], [facility] 03/03/2024 15:15:18 Date Recorded Body height Body mass index (BMI) Body weight Oxygen saturation Oxygen saturation in Arterial blood by Pulse oximetry Heart rate Systolic blood pressure Diastolic blood pressure Provider Name and Address Organization Details Last Updated DateTime 5 165.1 cm 29.7 kg/m2 99238.1 6 g 96 % 96 % 60 /min 140 mm[Hg] 84 mm[Hg] Stefany Meyer MA [facility] 5 11:59:33 Date Recorded Body height Body mass index (BMI) Body weight Oxygen saturation Oxygen saturation in Arterial blood by Pulse oximetry Heart rate Systolic blood pressure Diastolic blood pressure Provider Name and Address Organization Details Last Updated DateTime 5 165.1 cm 30.3 kg/m2 32457.5 3 g 94 % 94 % 60 /min 130 mm[Hg] 84 mm[Hg] Stefany Meyer MA [facility] 5 11:33:02 Social History Question Answer Notes LastModified by Organizat ion Details LastModified Time Tobacco Smoking Status Never Smoker Stefany Meyer MA null, [facility] 07/16/2023 10:13:09 What Is Your Level Of Alcohol Consumption? None Information not available 07/16/2023 What Was The Date Of Your Most Recent Tobacco Screening? 04/19/2024 Information not available 04/19/2024 Do You Use Any Illicit Or Recreational Drugs? No Information not available 07/16/2023 Has Tobacco Cessation Counseling Been Provided? No Information not available 07/16/2023 Do You Or Have You Ever Used Any Other Forms Of Tobacco Or Nicotine? No Information not available 07/16/2023 Sex: Unknown Functional Status None recorded. Mental Status None recorded. Family History Relationship Description Onset Age of this Age Resolved Age Notes LastModified by Organization Details LastModified Time Maternal Grandfather Myocardial infarction [email or web address] Not available 05/2023 12:26:11 Father Heart disease kbennettma Not available 07/14 12:26:33 Maternal Grandmother Heart disease kbennettma Not available 07/14 12:26:33 Paternal Grandfather Heart disease kbennettma Not available 07/14 12:26:33 Paternal Grandmother Heart disease kbennettma Not available 07/14 12:26:33 Medical History No medical history recorded. Gynecological HistoryNo gynecological history recorded. Obstetrics History GPAL:G 0 P 0 0 0 0 Past Encounters Encounter ID Performer Location Encounter Start Date Encounter Closed Date Diagnosis/Indication Diagnosis SNOMED-CT Code Diagnosis ICD10 Code Diagnosis Note [id number] Lavelle Beasley MD [facility] [place] [facility] [address] [place] [address] 07/16/2023 09:50:33 07/17/2023 15:40:50 Palpitations 83856434 R00.2 Hyperlipidemia 36742399 E78.5 Essential hypertension 97307485 I10 Hypokalemia 93541606 E87 .6 [id number] Lavelle Beasley MD [facility] [place] [facility] [address] [place] [address] 10/24/2023 10:51:05 10/27/2023 07:39:02 Palpitations 25566796 R00.2 Hyperlipidemia 49394937 E78.5 Essential hypertension 21278179 I10 [id number] GABINO Guzman S[facility] [place] [address] [facility] [address] [place] [address] 11/13/2023 12:04:39 11/18/2023 08:58:39 Adult health examination 306348880 Z00.00 Healthy diet and exercise, HCM as discussed Generalize d anxiety disorder 19772754 F41.1 - The pharmacolo gic and non-pharma cologic treatments discussed. No SI/HI. Take medication as prescribed - Take medication at the same time every day and do not miss doses - Medication will take 2-3 weeks to reach full effect - Do not suddenly stop medication without consulting your provider first - Take time for yourself every day, get plenty of rest - Exercise can help elevate moods - If you do not have a good support system, talk to your provider about counseling options - Sometimes antidepres courtney medication s can make suicidal thoughts worse. If you are experienci ng these thoughts you should report to the ER immediatel y - You can also call the suicide hotline at 5-929-147- 7952 Essential hypertension 98746711 I10 Take meds as ordered. Decrease caffeine and salt intake, work on diet and weight loss. Aerobic exercise 4 times per week for 30 min. Call for elevated blood pressures. Gastroesop hageal reflux disease without esophagitis 179070172 K21.9 1 .Avoid lying flat 3 to 4 hours after eating or drinking. 2. Don't eat for 3 hours prior to going to sleep 3. Elevate the head of bed 4-8 inches. 4. Avoid tight clothing around the waist. 5. Decrease dietary fat intake. 6. Avoid acidic foods (citrus and tomato-bas ed products), alcohol, caffeinate d beverages, chocolate, onions, garlic, salt, and peppermint oil. 7. Eat several smaller meals during the day instead of large meals. 8. Avoid drinking coffee, or carbonated beverages. 9. Weight loss can help with symptoms, try to diet and exercise. 10. Stop smoking. Hyperlipidemia 70876554 E78.5 Increase physical activity, heart healthy diet, drink water Eat a variety of foods every day. Good choices include fruits, vegetables , whole grains (like oatmeal), dried beans and peas, and nuts and seeds. Other good choices are soy products (like tofu) and fat-free or low-fat dairy products. Use olive and canola oils instead of butter, margarine, or hydrogenat ed or partially hydrogenat ed oils. (Canola oil margarine without trans fat is fine.) Replace red meat with fish, poultry, and soy protein (like tofu). Limit processed and packaged foods like chips, crackers, and cookies. Bake, broil, or steam foods instead of frying them. Be physically active. Get plenty of exercise every day. Go for a walk or jog, ride your bike, or play sports with friends. Stay at a healthy weight or lose weight by making the changes in eating and physical activity listed above. Losing just a small amount of weight, even 5 to 10 pounds, can reduce your risk for having a heart attack or stroke. Do not smoke. Smoking can increase the chance you will have a heart attack. If you need help quitting, talk to your doctor about stop-smoki ng programs and medicines. These can increase your chances of quitting for good. If you take medicine for high cholestero l, be sure to take it every day. Osteoporosis 74153478 M8 1.0 This is a stable chronic condition continue vitamin-D calcium and exercise Palpitations 43565830 R0 0.2 This is a stable chronic condition the patient is asymptomat ic we will continue to follow continue follow up with Cardiology Pain in left foot 064477 8095 81628 M79.672 This is just to doing additional correction to a previous surgery she recently had there has been no change in her health status her cardiologi is aware the procedures only supposed to last a few minutes patient is cleared paperwork has been signed [id number] Lavelle Beasley MD [facility] [place] [facility] [address] [place] [address] [address] [place] [address] 03/03/2024 14:43:40 03/08/2024 16:16:18 Palpitations 32852671 R00.2 Hyperlipidemia 58728988 E78.5 Essential hypertension 79988611 I10 Obesity 546557695 E66.9 [id number] Lavelle Beasley MD [facility] [place] [facility] [address] [place] [address] 03/18/2024 11:46:31 03/19/2024 14:23:54 Palpitations 42295591 R00.2 Hyperlipidemia 58028185 E78.5 Essential hypertension 43006439 I10 Overweight 816034894 E66 .3 [id number] Lavelle MD Gale [facility] [place] [facility] [address] [place] [address] 04/19/2024 11:16:36 04/20/2024 09:19:15 Palpitations 01503624 R00.2 Hyperlipidemia 47525362 E78.5 Essential hypertension 99682143 I10 Obesity 909588609 E66.9 Health Concerns Section Related Observation LastModified by Organization Detai ls LastModified Time None Recorded Concern Status LastModified by Organization Details LastModified Time None Recorded Advance Directives Directive None Recorded Payers Encounter Date Sequence Insurance Name Policy Number Policy Pantoja Covered Member ID Pantoja Member ID Guarantor Name 10/24/2023 1 [employer] (MEDICARE REPLACEMENT PPO) [id number] Joanna Loco Jen [id number] Joanna Li 11/13/2023 1 [employer] (MEDICARE REPLACEMENT PPO) [id number] Joanna Willinghamce [id number] Joanna Li 03/03/2024 1 [employer] (MEDICARE REPLACEMENT PPO) [id number] Joanna Loco Jen [id number] Joanna Li 03/18/2024 1 [employer] (MEDICARE REPLACEMENT PPO) [id number] Joanna Loco Jen [id number] Joanna Li 04/19/2024 1 [employer] (MEDICARE REPLACEMENT PPO) [id number] Joanna Loco Jen [id number] Joanna Li Notes Date Note Type Note Provider Name and Address Organization Details Recorded Time 2023 text/h tml 77-year-old female who has a history of palpitation and hypertension. She also has hyperlipidemia. She had a stress test in 2012 which was negative for myocardial ischemia. She had an echocardiogram in 2016 at that time she had normal left ventricular systolic function. Valves are functioning normally. July 16, 2023:77-year-old female who has a history of hypertension and hyperlipidemia she was seen in ER on June 15, 2023 complaining of palpitation. At that time EKG was done which shows sinus tachycardia with occasional PACs ST segments were within normal limits. She was noted to be hypokalemic potassium was as low as 3.1 she was started on potassium supplement which she ran out recently. She denies complaints of chest pain, shortness of breath, orthopnea, paroxysmal nocturnal dyspnea or edema of lower extremities. She walks 2 miles without any symptoms. October 24, 2023: 78-year-old female who has a history of hypertension, hyperlipidemia doing well. She has no symptoms of palpitation she denies dizziness light headedness or syncope. Since I started her on potassium her potassium level has normalized. She walks 2 miles in 40 minutes every day. LABS:10/20/23:triglycerides 116, cholesterol 178, LDL 97, HDL 66, sodium 137, K+4.1, BUN 12, creatinine 0.59, eGFR 91, glucose 92, calcium 10.0, ast 22, alt 126:sodium 138, K+ 4.1, BUN 10, creatinine 0.64, EGFR 90, glucose 97, calcium 9.6CMP 06/16/23:K+ 3.6, BUN 16, creatinine 0.70, glucose 85, alt 14, ast 22CBC 06/07/23:hgb 14.3, hct 39.8, plt 185, TSH 2.68Lipids 01/23/23:cholesterol 174, triglycerides 108, HDL 70, LDL 82 CARDIAC TESTING:ECHO 03/02/16:There is mild concentric left ventricular hypertrophy. Left ventricular systolic function is normal. EF=65-70%. Grade I diastolic dysfunction, (abnormal relaxation pattern). Lavelle Beasley MD Attn: Accounting ,[address] [place], [address] , [place] [facility] 4 11:44:32 2023 text/h tml New patient in to establish with PCM and f/u for the following medical conditions Patient is in for annual Medicare physical along with routine follow-up for the following medical conditions labs and medications.Diagnoses and all orders for this visit:Encounter for general adult medical examination with abnormal findings (Primary)-hpz-brcojq-Yoeasint: regularly and daily-colonoscopy: 6 years-shingles: UTD-Pneumococcal 13 and 23: UTD-flu: UTD-Covid 19: UTD-specialist: Dr Salazar cardiology-mammogram: July 2023-bone density: will do next year-pap: No longer does HTN: taking meds HLD: taking meds osteoporosis: on meds going back to podiatry, having minor surgery to fix an issues from first surgery, light sedation only going to last a few minutes, did not have any issues with previous procedure, cardiology is aware At standard risk for fallNo fallsAnxietyOff meds feels goodEncounter for risk and functional assessmentAble to perform all ADLEncounter for screening for other disorderNo depressionEssential (primary) hypertensionTaking medications, seeing cardiologyGastroesophageal reflux disease without esophagitisOff medications, but surgery for hiatal hernia came loseMixed hyperlipidemiaTaking medications and watching dietOsteoporosis, unspecified osteoporosis type, unspecified pathological fracture presenceDue for bone densityPalpitationsImprovedInterstitial emphysema-she was diagnosed a while bUTI s/s, burning, this is chronic and had full work up with Urology,Medicare Health Risk AssessmentBasic InformationIn general, would you say your health is: GoodDo you have an advance directive, such as a living will or durable power of drawer hardware worker?: (!) NoDo you have to strain or struggle to hear/understand conversations?: NoOver the last 2 weeks, how often have you been bothered by any of the following problems?Little Interest or Pleasure in Doing Things: Not at allFeeling Down, Depressed, or Hopeless: Not at allPHQ-2 Total Score (If total score is 3 or more points, staff should administer the PHQ-9): 0In the past year, patient experienced:One or more falls in the last year: NoDo you feel unsteady when standing or walking?: NoDo you worry about falling?: NoSafetyDo you have a working smoke detector in your home?: YesDoes your home have throw rugs, poor lighting, or a slippery bath tub/shower?: (!) YesDo you always fasten your seatbelt when you are in a vehicle?: YesWhat is your typical mode of transportation: CarPhysical ActivityHow many days a week do you usually exercise?: 4-5 days per weekHow intense is your typical exercise?: Light (like stretching or slow walking)NutritionHow would you rate your appetite?: GoodHow would you describe the condition of your mouth and teeth/dentures?: GoodOn a typical day, how many servings of fruits and vegetables do you eat?: 2On a typical day, how many servings of high fiber/whole-grain foods do you eat?: 1On a typical day, how many servings of high fat/fried foods do you eat?: 0Have you experienced any of the following problems currently or recently?Eating: NoGrooming: NoBathing: NoWalking: NoUsing the toilet: NoMemory problems: NoDifficulty speaking: NoDressing: NoBalance: NoPain: NoSexual Health: NoFatigue: NoDepression: NoLife Satisfaction: (!) YesStress: NoAnger: NoLoneliness or Social Isolation: NoSuicide: NoHave you experienced any of the following problems currently or recently?Laundry and/or housekeeping: NoHandling money: NoShopping: NoUsing the Phone: NoFood preparation: NoTransportation: NoTaking and/or getting your own medications: NoDo you use prescription drugs that are not prescribed for you?: NoBased on my observation of the patient, review of Health Risk Assessment (HRA) and other records, this is my assessment and recommendation regarding fall risk, hearing impairment, home safety, ADLs, or any other issues identified in the HRA: reviewed GABINO Guzman Attn: [place], [address] , [place] [facility] 12:33:33 2024 text/h tml 77-year-old female who has a history of palpitation and hypertension. She also has hyperlipidemia. She had a stress test in 2012 which was negative for myocardial ischemia. She had an echocardiogram in 2017 at that time she had normal left ventricular systolic function. Valves are functioning normally. July 16, 2023:77-year-old female who has a history of hypertension and hyperlipidemia she was seen in ER on June 15, 2023 complaining of palpitation. At that time EKG was done which shows sinus tachycardia with occasional PACs ST segments were within normal limits. She was noted to be hypokalemic potassium was as low as 3.1 she was started on potassium supplement which she ran out recently. She denies complaints of chest pain, shortness of breath, orthopnea, paroxysmal nocturnal dyspnea or edema of lower extremities. She walks 2 miles without any symptoms. October 24, 2023:78-year-old female who has a history of hypertension, hyperlipidemia doing well. She has no symptoms of palpitation she denies dizziness light headedness or syncope. Since I started her on potassium her potassium level has normalized. She walks 2 miles in 40 minutes every day. March 03, 2024: [age] old female who has a history of hypertension, hyperlipidemia call my office today complaining of atrial fibrillation which was noticed by her smart watch. At that time she was also feeling palpitation. It lasted for few minutes resolved spontaneously. She denies complaints of chest pain and shortness of breath. She has no orthopnea and paroxysmal nocturnal dyspnea. EKG:March 03 2024: Sinus rhythm first-degree AV block with poor R-wave progression left axis deviation. LABS:10/20/23:triglycerides 116, cholesterol 178, LDL 97, HDL 66, sodium 137, K+4.1, BUN 12, creatinine 0.59, eGFR 91, glucose 92, calcium 10.0, ast 22, alt 126/:sodium 138, K+ 4.1, BUN 10, creatinine 0.64, EGFR 90, glucose 97, calcium 9.65:K+ 3.6, BUN 16, creatinine 0.70, glucose 85, alt 14, ast 22 CARDIAC TESTING:ECHO 03/02/16:There is mild concentric left ventricular hypertrophy. Left ventricular systolic function is normal. EF=65-70%. Grade I diastolic dysfunction, (abnormal relaxation pattern). Lavelle Beasley MD Attn: [place], [address] , [place] [facility] 15:21:29 2024 text/h tml 77-year-old female who has a history of palpitation and hypertension. She also has hyperlipidemia. She had a stress test in 2012 which was negative for myocardial ischemia. She had an echocardiogram in 2017 at that time she had normal left ventricular systolic function. Valves are functioning normally. July 16, 2023:77-year-old female who has a history of hypertension and hyperlipidemia she was seen in ER on June 15, 2023 complaining of palpitation. At that time EKG was done which shows sinus tachycardia with occasional PACs ST segments were within normal limits. She was noted to be hypokalemic potassium was as low as 3.1 she was started on potassium supplement which she ran out recently. She denies complaints of chest pain, shortness of breath, orthopnea, paroxysmal nocturnal dyspnea or edema of lower extremities. She walks 2 miles without any symptoms.October 24, 2023:78-year-old female who has a history of hypertension, hyperlipidemia doing well. She has no symptoms of palpitation she denies dizziness light headedness or syncope. Since I started her on potassium her potassium level has normalized. She walks 2 miles in 40 minutes every day. March 03, 2024:[age] old female who has a history of hypertension, hyperlipidemia call my office today complaining of atrial fibrillation which was noticed by her smart watch. At that time she was also feeling palpitation. It lasted for few minutes resolved spontaneously. She denies complaints of chest pain and shortness of breath. She has no orthopnea and paroxysmal nocturnal dyspnea. March 17, 2024: 78-year-old female who was complaining of palpitation she thought she has atrial fibrillation. At that time I recommended her to take atenolol 12.5 mg twice a day. She was still having palpitation in the ED late evening hours or middle of the night so she increased her atenolol to 25 in the morning and 12-1/2 in evening which helped improve her symptoms. She denies complaints of chest pain, shortness of breath, orthopnea, paroxysmal nocturnal dyspnea or edema of lower extremities. She walks up to 2 miles without any symptoms. EKG:March 03 2024: Sinus rhythm first-degree AV block with poor R-wave progression left axis deviation. LABS:10/20/23:triglycerides 116, cholesterol 178, LDL 97, HDL 66, sodium 137, K+4.1, BUN 12, creatinine 0.59, eGFR 91, glucose 92, calcium 10.0, ast 22, alt 126/21/24:sodium 138, K+ 4.1, BUN 10, creatinine 0.64, EGFR 90, glucose 97, calcium 9.65/08/03:K+ 3.6, BUN 16, creatinine 0.70, glucose 85, alt 14, ast 22 CARDIAC TESTING:ECHO 03/02/16:There is mild concentric left ventricular hypertrophy. Left ventricular systolic function is normal. EF=65-70%. Grade I diastolic dysfunction, (abnormal relaxation pattern). Lavelle Beasley MD Attn: Accounting ,[address] [place], [address] , [place] [facility] 13:40:03 2024 text/h tml 77-year-old female who has a history of palpitation and hypertension. She also has hyperlipidemia. She had a stress test in 2012 which was negative for myocardial ischemia. She had an echocardiogram in 2016 at that time she had normal left ventricular systolic function. Valves are functioning normally. July 16, 2023:77-year-old female who has a history of hypertension and hyperlipidemia she was seen in ER on June 15, 2023 complaining of palpitation. At that time EKG was done which shows sinus tachycardia with occasional PACs ST segments were within normal limits. She was noted to be hypokalemic potassium was as low as 3.1 she was started on potassium supplement which she ran out recently. She denies complaints of chest pain, shortness of breath, orthopnea, paroxysmal nocturnal dyspnea or edema of lower extremities. She walks 2 miles without any symptoms.October 24, 2023:78-year-old female who has a history of hypertension, hyperlipidemia doing well. She has no symptoms of palpitation she denies dizziness light headedness or syncope. Since I started her on potassium her potassium level has normalized. She walks 2 miles in 40 minutes every day.March 03, 2024:[age] old female who has a history of hypertension, hyperlipidemia call my office today complaining of atrial fibrillation which was noticed by her smart watch. At that time she was also feeling palpitation. It lasted for few minutes resolved spontaneously. She denies complaints of chest pain and shortness of breath. She has no orthopnea and paroxysmal nocturnal dyspnea.March 17, 2024:78-year-old female who was complaining of palpitation she thought she has atrial fibrillation. At that time I recommended her to take atenolol 12.5 mg twice a day. She was still having palpitation in the ED late evening hours or middle of the night so she increased her atenolol to 25 in the morning and 12-1/2 in evening which helped improve her symptoms. She denies complaints of chest pain, shortness of breath, orthopnea, paroxysmal nocturnal dyspnea or edema of lower extremities. She walks up to 2 miles without any symptoms. April 19, 2024:78-year-old female who has a history of palpitation. Last time when I saw her I increased her atenolol to 25 in the morning and 12-1/2 in the evening since then she has no recurrence of palpitation. She denies chest pain and shortness of breath. She walks 2 miles every day without any symptoms. EKG:March 03 2024: Sinus rhythm first-degree AV block with poor R-wave progression left axis deviation. LABS:04/13/24:cholesterol 177, triglycerides 104, HDL 62, LDL 96, sodium 141, K+ 4.0, BUN 13, creatinine 0.70, glucose 90, calcium 10.2, eGFR 87, alt 14, ast 229/11/03:triglycerides 116, cholesterol 178, LDL 97, HDL 66, sodium 137, K+4.1, BUN 12, creatinine 0.59, eGFR 91, glucose 92, calcium 10.0, ast 22, alt 126/:sodium 138, K+ 4.1, BUN 10, creatinine 0.64, EGFR 90, glucose 97, calcium 9.65:K+ 3.6, BUN 16, creatinine 0.70, glucose 85, alt 14, ast 22 CARDIAC TESTING:ECHO 03/02/16:There is mild concentric left ventricular hypertrophy. Left ventricular systolic function is normal. EF=65-70%. Grade I diastolic dysfunction, (abnormal relaxation pattern). Lavelle Beasley MD Attn: Accounting ,[address] [place], [address] , [facility] 12:19:16 OBGyn Episode No OBEpisode recorded.
--- OUTSIDE RECORDS SUMMARY | 2024-04-22 11:47 | XMS_ITS | Referral Summary ---
Author Organization [place] [id number] [facility] Address [address] [place] [address] Care Team Providers Care Director Of Entertainment Name Role Phone Pérez Thakur MD Unavailable [phone] Parish Amanda Primary Care Provider [phone] Encounters Date Type Department Care Team Description 04/13/2024 7:05 AM [facility] Office Building [address] [id number] from Last 3 Months Allergies No known active allergies Medications estradiol (VAGIFEM) 10 mcg tabletIndicatio ns:Atrophic Vaginitis associated with Menopause Insert 1 tablet (10 mcg total) into the vagina 2 (two) times a week Active multivit-min/FA /lutein/zeaxant (MACULAR VITAMIN ORAL) Take 1 tablet by mouth daily before breakfast. Active Lactobac no.41/Bifidobac t no.7 (PROBIOTIC-10 ORAL) Take 1 tablet by mouth daily before breakfast. Active cholecalciferol (VITAMIN D-3) 1,000 unit capsule Take 1 capsule (1,000 Units total) by mouth daily Active coenzyme Q10 10 mg capsule Take by mouth daily Active Premarin vaginal cream APPLY TO AFFECTED AREA TWICE A WEEK 08/15/2022 Active L. acidophilus/Bif id. animalis 32 billion cell capsule Take 1 capsule by mouth daily Active CALCIUM ORAL Take by mouth Act [place] atorvastatin (LIPITOR) 10 mg tablet Take 1 tablet (10 mg total) by mouth daily 07/22/2023 Active lisinopril-hydr oCHLOROthiazide (ZESTORETIC) 20-12.5 mg per tabletIndicatio ns:hypertension Take 1 tablet by mouth daily 07/22/2023 07/22/19 25 Active lisinopriL (PRINIVIL,ZESTR IL) 40 mg tablet Take 1 tablet (40 mg total) by mouth daily 07/16/2023 Active potassium chloride ER 20 mEq CR tablet Take 1 tablet (20 mEq total) by mouth daily 07/16/2023 Active hydroCHLOROthia zide (MICROZIDE) 12.5 mg capsule Take by mouth daily 07/16/2023 Active atenoloL (TENORMIN) 25 mg tablet TAKE 1 TABLET BY MOUTH EVERY MORNING BEFORE BREAKFAST. 90 tablet 3 08/27/2023 Active raloxifene (EVISTA) 60 mg tablet TAKE 1 TABLET(60 MG) BY MOUTH DAILY 90 tablet 1 08/27/2023 Active Active Problems Problem Noted Date Diagnosed Date Retinal scar 07/22/2023 Degenerative progressive high myopia 05/14/2023 Macular cyst, hole, or pseudohole, right eye 04/2023 Unspecified optic atrophy 05/14/2023 Secondary cataract 10/17/2022 Bilateral hearing loss due to cerumen impaction 07/18/2022 Assessment & Plan (07/18/2022 11:38 AM CDT): Failed attempted removal with curette bilateral ear irrigation removed both wax plus Unspecified chorioretinal inflammation, unspecif ied eye 06/05/2022 Dry eyes 12/05/2021 Presence of intraocular lens 12/05/2021 Tear of left retina without detachment 2 Tear of right retina without detachment 12/06/19 22 Age-related cataract of both eyes 06/27/2021 Assessment & Plan (06/27/2021 11:05 AM CDT): Patient is cleared for cataract surgery with the same risk is others her age with her medical condition Combined forms of age-related cataract, bilatera l 05/30/2021 RLQ discomfort 01/18/2021 Age-related nuclear cataract, unspecified eye Recurrent UTI 07/27/2020 Assessment & Plan (07/22/2023 10:54 AM CDT): Recurring, had full work up, sending for culture, since symptomatic, treat with macrobid Assessment & Plan (08/24/2020 9:33 AM CDT): Patient had work up in past with urology, will treat her symptoms, f/u as needed Assessment & Plan (07/27/2020 3:21 PM CDT): New antibiotics, culture may need short course prophylaxis BMI 31.0-31.9,adult 05/22/2020 Assessment & Plan (05/22/2020 10:32 AM CDT): Healthy diet exercise and weight reduction with calorie restriction BMI goal 25 it will follow-up 6 months Thrush 05/22/2020 Assessment & Plan (05/22/2020 10:32 AM CDT): This is new an uncontrolled, medicines as ordered, if this reoccurs patient will need further workup for her immune system Primary osteoarthritis of right hip 04/25/2020 Assessment & Plan (01/18/2021 10:34 AM [employer] INSTRUCTOR): This was not an issue at this visit Hypercholesterolemia 11/24/2019 Encounter for general adult medical examination with abnormal findings 06/24/2018 Assessment & Plan (07/21/2023 6:21 AM CDT): Healthcare maintenance updated Assessment & Plan (07/18/2022 11:40 AM CDT): Healthcare maintenance updated Assessment & Plan (07/17/2021 9:37 AM CDT): HEALTHCARE MAINTENANCE updated Assessment & Plan (07/13/2020 1:37 PM CDT): Healthcare maintenance updated P 23 given today Assessment & Plan (07/13/2019 2:23 PM CDT): Not depressed Hiatal hernia 02/24/2018 Overview (10/05/2019): AUGUST 06, 2017 REPAIR Tear film insufficiency 09/23/2016 At standard risk for fall 03/25/2016 Assessment & Plan (07/17/2021 9:37 AM CDT): No falls Assessment & Plan (07/13/2020 1:37 PM CDT): Denies any fall Assessment & Plan (07/13/2019 2:23 PM CDT): No falls Encounter for screening for other disorder 03/25 Assessment & Plan (07/18/2022 11:40 AM CDT): No depression Assessment & Plan (07/17/2021 9:37 AM CDT): No depression Assessment & Plan (07/13/2020 1:37 PM CDT): Patient denies depression Assessment & Plan (07/13/2019 2:23 PM CDT): No depression Encounter for risk and functional assessment Assessment & Plan (07/18/2022 11:40 AM CDT): Able to perform all ADL Assessment & Plan (07/17/2021 9:37 AM CDT): Able to perform all ADL Assessment & Plan (07/13/2020 1:37 PM CDT): Patient is able to perform all ADL Assessment & Plan (07/13/2019 2:23 PM CDT): Able to perform all ADL Osteoporosis 03/25/2016 Assessment & Plan (07/21/2023 6:21 AM CDT): Continue vitamin-D meds and exercise Assessment & Plan (07/18/2022 11:39 AM CDT): Continue vitamin-D meds and exercise Assessment & Plan (01/16/2022 10:46 AM [employer] IN[employer]): CPM and exercise Assessment & Plan (07/17/2021 9:38 AM CDT): CPM and due for bone density Assessment & Plan (06/27/2021 11:06 AM CDT): Continue medications diet vitamin-D calcium and exercise Assessment & Plan (07/13/2020 1:38 PM CDT): This is currently controlled with medications continue to follow and exercise Assessment & Plan (01/12/2020 2:11 PM [employer] IN[employer]): Continue vitamin-D and calcium, she is scheduled for a bone density Assessment & Plan (07/13/2019 2:25 PM CDT): Vitamin D and calcium Palpitations 03/25/2016 Assessment & Plan (07/21/2023 6:21 AM CDT): This is a well controlled chronic condition we will continue to follow. Assessment & Plan (06/12/2023 10:48 AM CDT): Resolved with K+ use. Patient to follow up Dr. 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 Patient to return to ER if palpations return prior to her cardiology appointment. Assessment & Plan (04/30/2023 11:32 AM CDT): This is a well controlled chronic condition we will continue to follow. Assessment & Plan (09/19/2022 10:16 AM CDT): controlled Assessment & Plan (07/18/2022 11:39 AM CDT): Currently not an issue continue current meds will continue to follow Assessment & Plan (01/16/2022 10:46 AM [employer]): Well controlled Assessment & Plan (07/17/2021 9:37 AM CDT): Appears to have had a reaction possible to new medications, will hold and go back to atenolol until her f/u Assessment & Plan (06/27/2021 11:06 AM CDT): This is currently controlled with medications will continue to follow Assessment & Plan (01/18/2021 10:34 AM [employer]): This is currently well controlled Assessment & Plan (07/13/2020 1:38 PM CDT): This is well controlled medications patient does see Cardiology follow-up routine Assessment & Plan (01/12/2020 2:11 PM [employer]): These are currently well controlled Assessment & Plan (07/13/2019 2:25 PM CDT): Controlled, CPM Essential (primary) hypertension 03/19/2016 Assessment & Plan (07/21/2023 6:21 AM CDT): This is a stable chronic condition. Monitor blood pressure, call if out of parameters as we discussed. Low sodium and caffeine diet. baby asa as discussed if applicable. Diet, exercise and weight reduction. Labs as ordered. F/U routine Assessment & Plan (04/30/2023 11:32 AM CDT): This is a stable chronic condition. Monitor blood pressure, call if out of parameters as we discussed. Low sodium and caffeine diet. baby asa as discussed if applicable. Diet, exercise and weight reduction. Labs as ordered. F/U routine Assessment & Plan (09/19/2022 10:15 AM CDT): Images from the original note were not included. This is a stable chronic condition. Monitor blood pressure, call if out of parameters as we discussed. Low sodium and caffeine diet. baby asa as discussed if applicable. Diet, exercise and weight reduction. Labs as ordered. F/U routine Assessment & Plan (07/18/2022 11:40 AM CDT): This is a stable chronic condition. Monitor blood pressure, call if out of parameters as we discussed. Low sodium and caffeine diet. baby asa as discussed if applicable. Diet, exercise and weight reduction. Labs as ordered. F/U routine Assessment & Plan (01/16/2022 10:45 AM [employer] INSTRUCTOR): Images from the original note were not included. This is a stable chronic condition. Monitor blood pressure, call if out of parameters as we discussed. Low sodium and caffeine diet. baby asa as discussed if applicable. Diet, exercise and weight reduction. Labs as ordered. F/U routine Assessment & Plan (07/17/2021 9:37 AM CDT): Images from the original note were not included. This is a stable chronic condition. Monitor blood pressure, call if out of parameters as we discussed. Low sodium and caffeine diet. baby asa as discussed if applicable. Diet, exercise and weight reduction. Labs as ordered. F/U routine Assessment & Plan (06/27/2021 11:06 AM CDT): This is a stable chronic condition. Monitor blood pressure, call if out of parameters as we discussed. Low sodium and caffeine diet. baby asa as discussed if applicable. Diet, exercise and weight reduction. Labs as ordered. F/U routine Assessment & Plan (01/18/2021 10:34 AM T[employer] INSTRUCTOR): This is a stable chronic condition. Monitor blood pressure, call if out of parameters as we discussed. Low sodium and caffeine diet. baby asa as discussed if applicable. Diet, exercise and weight reduction. Labs as ordered. F/U routine Assessment & Plan (07/27/2020 3:21 PM CDT): Images from the original note were not included. This is a stable chronic condition. Monitor blood pressure, call if out of parameters as we discussed. Low sodium and caffeine diet. baby asa as discussed if applicable. Diet, exercise and weight reduction. Labs as ordered. F/U routine Assessment & Plan (07/13/2020 1:37 PM CDT): This is a stable chronic condition. Monitor blood pressure, call if out of parameters as we discussed. Low sodium and caffeine diet. baby asa as discussed if applicable. Diet, exercise and weight reduction. Labs as ordered. F/U routine Assessment & Plan (05/22/2020 10:32 AM CDT): This is a stable chronic condition. Monitor blood pressure, call if out of parameters as we discussed. Low sodium and caffeine diet. baby asa as discussed if applicable. Diet, exercise and weight reduction. Labs as ordered. F/U routine Assessment & Plan (01/12/2020 2:11 PM T[employer] INSTRUCTOR): Images from the original note were not included. This is a stable chronic condition. Monitor blood pressure, call if out of parameters as we discussed. Low sodium and caffeine diet. baby asa as discussed if applicable. Diet, exercise and weight reduction. Labs as ordered. F/U routine Assessment & Plan (07/13/2019 2:23 PM CDT): Images from the original note were not included. This is a stable chronic condition. Monitor blood pressure, call if out of parameters as we discussed. Low sodium and caffeine diet. baby asa as discussed if applicable. Diet, exercise and weight reduction. Labs as ordered. F/U routine Generalized anxiety disorder 03/08/2016 Assessment & Plan (07/21/2023 6:21 AM CDT): This is well controlled with no SI HI continue current medications follow-up 6 months. Open door open Assessment & Plan (04/30/2023 11:31 AM CDT): This is well controlled with no SI HI continue current medications follow-up 6 months. Open door open Assessment & Plan (09/19/2022 10:15 AM CDT): Anxiety well controlled Assessment & Plan (07/18/2022 11:39 AM CDT): This is well controlled with no medications will continue to follow Assessment & Plan (01/16/2022 10:45 AM [employer] IN[employer]CTOR): Controlled, will follow, no si/hi Assessment & Plan (07/17/2021 9:38 AM CDT): Appears controlled, unsure if recent incident in ER was partially anxiety, will follow, well collected in clinic Assessment & Plan (06/27/2021 11:06 AM CDT): This is well controlled will continue to follow Assessment & Plan (01/18/2021 10:33 AM [employer] IN[employer]): This is no longer an issue Assessment & Plan (07/27/2020 3:21 PM CDT): Well controlled Assessment & Plan (07/13/2020 1:37 PM CDT): This is currently well controlled we will continue to follow Assessment & Plan (05/22/2020 10:31 AM CDT): This is currently controlled off meds, we will continue to follow Assessment & Plan (01/12/2020 2:10 PM T[employer] INSTRUCTOR): Patient is wanting to wean herself off her Paxil were going to decrease it to 5 mg a day for 4-6 weeks then we will take it every other day for 4-6 weeks and she is doing well she can discontinue she will call me if there is any issues Assessment & Plan (07/13/2019 2:22 PM CDT): Images from the original note were not included. CPM The pharmacologic and nonpharmacologic treatment of anxiety/depression were discusses with the patient. Included was a discussion of the current treatment regimens and their proposed mechanism of action concerning brain chemistry. Discussed the role of counseling as an adjunct to medications should we agree to pursue this. The patient is non-suicidal, and agrees to inform us of any change in this status follow up in 4-6 weeks- sooner if any problems HLD (hyperlipidemia) 03/08/2016 Assessment & Plan (07/21/2023 6:21 AM CDT): Patient is to continue present medications, work on diet and exercise as discussed, we did discuss the medications and potential side effects and signs and symptoms that would warrant calling office. Follow up routine. Assessment & Plan (04/30/2023 11:32 AM CDT): Patient is to continue present medications, work on diet and exercise as discussed, we did discuss the medications and potential side effects and signs and symptoms that would warrant calling office. Follow up routine. Assessment & Plan (09/19/2022 10:16 AM CDT): Patient is to continue present medications, work on diet and exercise as discussed, we did discuss the medications and potential side effects and signs and symptoms that would warrant calling office. Follow up routine. Assessment & Plan (07/18/2022 11:39 AM CDT): Patient is to continue present medications, work on diet and exercise as discussed, we did discuss the medications and potential side effects and signs and symptoms that would warrant calling office. Follow up routine. Assessment & Plan (01/16/2022 10:46 AM [employer] INSTRUCTOR): Patient is to continue present medications, work on diet and exercise as discussed, we did discuss the medications and potential side effects and signs and symptoms that would warrant calling office. Follow up routine. Assessment & Plan (07/17/2021 9:38 AM CDT): Patient is to continue present medications, work on diet and exercise as discussed, we did discuss the medications and potential side effects and signs and symptoms that would warrant calling office. Follow up routine. Assessment & Plan (06/27/2021 11:06 AM CDT): Patient is to continue present medications, work on diet and exercise as discussed, we did discuss the medications and potential side effects and signs and symptoms that would warrant calling office. Follow up routine. Assessment & Plan (01/18/2021 10:34 AM [employer] IN[employer]): Patient is to continue present medications, work on diet and exercise as discussed, we did discuss the medications and potential side effects and signs and symptoms that would warrant calling office. Follow up routine. Assessment & Plan (07/13/2020 1:38 PM CDT): Patient is to continue present medications, work on diet and exercise as discussed, we did discuss the medications and potential side effects and signs and symptoms that would warrant calling office. Follow up routine. Assessment & Plan (01/12/2020 2:11 PM [employer] IN[employer]): Patient is to continue present medications, work on diet and exercise as discussed, we did discuss the medications and potential side effects and signs and symptoms that would warrant calling office. Follow up routine. Assessment & Plan (07/13/2019 2:24 PM CDT): Patient is to continue present medications, work on diet and exercise as discussed, we did discuss the medications and potential side effects and signs and symptoms that would warrant calling office. Follow up routine. Obesity (BMI 30.0-34.9) 03/08/2016 GERD (gastroesophageal reflux disease) 7 Assessment & Plan (07/21/2023 6:21 AM CDT): Avoid spicy, fried, greasy foods Keep hydrated with clear liquids Elevate HOB 2- 3 inches Avoid or cut down on caffeine, chocolates, and ETOH No late meals, or heavy meals after 7 pm Reg daily exercise No tight fitting clothing Stop smoking - if smoker Watch for worsening symptoms - ie diarrhea, vomiting, nausea, blood per rectum, vomiting up blood ,fever, arthralgias, rash etc. RTC prn or if new symptoms arise Pt or parent verbalizes understanding Assessment & Plan (04/30/2023 11:32 AM CDT): Avoid spicy, fried, greasy foods Keep hydrated with clear liquids Elevate HOB 2- 3 inches Avoid or cut down on caffeine, chocolates, and ETOH No late meals, or heavy meals after 7 pm Reg daily exercise No tight fitting clothing Stop smoking - if smoker Watch for worsening symptoms - ie diarrhea, vomiting, nausea, blood per rectum, vomiting up blood ,fever, arthralgias, rash etc. RTC prn or if new symptoms arise Pt or parent verbalizes understanding Assessment & Plan (09/19/2022 10:15 AM CDT): Images from the original note were not included. Avoid spicy, fried, greasy foods Keep hydrated with clear liquids Elevate HOB 2- 3 inches Avoid or cut down on caffeines, chocolates, and ETOH No late meals, or heavy meals after 7 pm Reg daily exercise No tight fitting clothing Stop smoking - if smoker Watch for worsening symptoms - ie diarrhea, vomiting, nausea, blood per rectum, vomiting up blood ,fever, arthralgias, rash etc. RTC prn or if new symptoms arise Pt or parent verbalizes understanding Assessment & Plan (07/18/2022 11:39 AM CDT): Images from the original note were not included. Avoid spicy, fried, greasy foods Keep hydrated with clear liquids Elevate HOB 2- 3 inches Avoid or cut down on caffeines, chocolates, and ETOH No late meals, or heavy meals after 7 pm Reg daily exercise No tight fitting clothing Stop smoking - if smoker Watch for worsening symptoms - ie diarrhea, vomiting, nausea, blood per rectum, vomiting up blood ,fever, arthralgias, rash etc. RTC prn or if new symptoms arise Pt or parent verbalizes understanding Assessment & Plan (01/16/2022 10:45 AM [employer] IN[employer]CTOR): Images from the original note were not included. Avoid spicy, fried, greasy foods Keep hydrated with clear liquids Elevate HOB 2- 3 inches Avoid or cut down on caffeines, chocolates, and ETOH No late meals, or heavy meals after 7 pm Reg daily exercise No tight fitting clothing Stop smoking - if smoker Watch for worsening symptoms - ie diarrhea, vomiting, nausea, blood per rectum, vomiting up blood ,fever, arthralgias, rash etc. RTC prn or if new symptoms arise Pt or parent verbalizes understanding Assessment & Plan (07/17/2021 9:38 AM CDT): Images from the original note were not included. Avoid spicy, fried, greasy foods Keep hydrated with clear liquids Elevate HOB 2- 3 inches Avoid or cut down on caffeines, chocolates, and ETOH No late meals, or heavy meals after 7 pm Reg daily exercise No tight fitting clothing Stop smoking - if smoker Watch for worsening symptoms - ie diarrhea, vomiting, nausea, blood per rectum, vomiting up blood ,fever, arthralgias, rash etc. RTC prn or if new symptoms arise Pt or parent verbalizes understanding Assessment & Plan (06/27/2021 11:06 AM CDT): Images from the original note were not included. Avoid spicy, fried, greasy foods Keep hydrated with clear liquids Elevate HOB 2- 3 inches Avoid or cut down on caffeines, chocolates, and ETOH No late meals, or heavy meals after 7 pm Reg daily exercise No tight fitting clothing Stop smoking - if smoker Watch for worsening symptoms - ie diarrhea, vomiting, nausea, blood per rectum, vomiting up blood ,fever, arthralgias, rash etc. RTC prn or if new symptoms arise Pt or parent verbalizes understanding Assessment & Plan (01/18/2021 10:34 AM [employer] IN[employer]): Images from the original note were not included. Avoid spicy, fried, greasy foods Keep hydrated with clear liquids Elevate HOB 2- 3 inches Avoid or cut down on caffeines, chocolates, and ETOH No late meals, or heavy meals after 7 pm Reg daily exercise No tight fitting clothing Stop smoking - if smoker Watch for worsening symptoms - ie diarrhea, vomiting, nausea, blood per rectum, vomiting up blood ,fever, arthralgias, rash etc. RTC prn or if new symptoms arise Pt or parent verbalizes understanding Assessment & Plan (07/27/2020 3:21 PM CDT): Images from the original note were not included. Avoid spicy, fried, greasy foods Keep hydrated with clear liquids Elevate HOB 2- 3 inches Avoid or cut down on caffeines, chocolates, and ETOH No late meals, or heavy meals after 7 pm Reg daily exercise No tight fitting clothing Stop smoking - if smoker Watch for worsening symptoms - ie diarrhea, vomiting, nausea, blood per rectum, vomiting up blood ,fever, arthralgias, rash etc. RTC prn or if new symptoms arise Pt or parent verbalizes understanding Assessment & Plan (07/13/2020 1:37 PM CDT): Images from the original note were not included. Avoid spicy, fried, greasy foods Keep hydrated with clear liquids Elevate HOB 2- 3 inches Avoid or cut down on caffeines, chocolates, and ETOH No late meals, or heavy meals after 7 pm Reg daily exercise No tight fitting clothing Stop smoking - if smoker Watch for worsening symptoms - ie diarrhea, vomiting, nausea, blood per rectum, vomiting up blood ,fever, arthralgias, rash etc. RTC prn or if new symptoms arise Pt or parent verbalizes understanding Assessment & Plan (05/22/2020 10:32 AM CDT): Images from the original note were not included. Avoid spicy, fried, greasy foods Keep hydrated with clear liquids Elevate HOB 2- 3 inches Avoid or cut down on caffeines, chocolates, and ETOH No late meals, or heavy meals after 7 pm Reg daily exercise No tight fitting clothing Stop smoking - if smoker Watch for worsening symptoms - ie diarrhea, vomiting, nausea, blood per rectum, vomiting up blood ,fever, arthralgias, rash etc. RTC prn or if new symptoms arise Pt or parent verbalizes understanding Assessment & Plan (01/12/2020 2:11 PM T[employer] IN[employer]): Images from the original note were not included. Avoid spicy, fried, greasy foods Keep hydrated with clear liquids Elevate HOB 2- 3 inches Avoid or cut down on caffeines, chocolates, and ETOH No late meals, or heavy meals after 7 pm Reg daily exercise No tight fitting clothing Stop smoking - if smoker Watch for worsening symptoms - ie diarrhea, vomiting, nausea, blood per rectum, vomiting up blood ,fever, arthralgias, rash etc. 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 Vitreous degeneration 09/05/2014 Myopia 07/09/2011 Presbyopia 07/09/2011 Regular astigmatism 07/09/2011 Resolved Problems Problem Noted Date Diagnosed Date Resolved Date Interstitial emphysema 06/25/201806/25 Assessment & Plan (07/18/2022 11:39 AM CDT): This is currently not an issue but will continue to follow Assessment & Plan (07/13/2020 1:38 PM CDT): This is no longer a current issue Interstitial emphysema 06/25/201812/24 Assessment & Plan (06/25/2018 9:24 AM CDT): This is a resolved issue from post surgical DX Paraesophageal hiatal hernia 08/06/2017 02/24/2018 Overview (10/05/2019): Repaired August 06, 2017 Foot pain 06/18/2011 12/24/2018 Assessment & Plan (09/19/2022 10:19 AM CDT): I am willing to clear with same risks as others her age with her medical conditions, I am reaching out to cardiology for approval Immunizations Immunization Administration Dates Next Due Hep A, Unspecified 12/04/1999,05/04/1999 Influenza, Quad, Adjuvantate d, Intramuscular 10/30/2022 Influenza, Quadrivalent, Hig h Dose, Preservative Free, Intrr 10/30/2021,10/05/2020,10/15/2019 Influenza, Quadrivalent, Spl it, Intramuscular 10/21/2016 Influenza, Trivalent, High D ose, Split, Preservative Free, Intramuscular 11/04/2018,11/06/2017,10/20/2016,10/31 Influenza, Trivalent, IM (MDV) 11/01/2013 Influenza, Trivalent, Preser vative Free, Intramuscular 10/27/2014 Influenza, Unspecified 10/30/2022,2021,10/05/2020,10/14,11/02/2015,12/15/2000 Moderna SARS-CoV-2 Monovalen t Vaccination (12+ YRS) 04/06/2020,03/06/2020 Pneumococcal Conjugate PCV 13 10/27/2014 Pneumococcal Polysaccharide PPV23 07/13/2020 Tdap 10/31/2011 ZOSTER Recombinant 06/18/2018,04/17/2018 Social History Tobacco Use Types Packs/Day Years Used Date Smoking Tobacco: Never Smokeless Tobacco: Never Tobacco Cessation:Counseling Given: Not Answered Alcohol Use Standard Drinks/Week Comments No 0 (1 standard drink = 0.6 oz pur e alcohol) AUDIT-C Answer Date Recorded Q1: How often do you have a drink containing alc ohol? Never 07/22/2023 Average Number of Drinks Not on file 024 Frequency of Binge Drinking Not on file 07/11 PHQ-2 Answer Date Recorded PHQ-2 Total Score (If total score is 3 or more points, staff should administer the PHQ-9) 0 07/22/2023 Personal Safety Answer Date Recorded Have you ever been in or are you currently in a harmful physical or emotional relationship or is someone making you feel afraid or unsafe? Denies 06/07/2023 Comments No Sex and Gender Information Value Date Recorded Sex Assigned at Not on file Legal Sex Female 10:44 AM [employer] Gender Identity Female 02/21/2021 1:01 PM [employer] Sexual Orientation Not on file Last Filed Vital Signs Vital Sign Reading Time Taken Comments Blood Pressure 130/80 07/22/2023 10:29 AM CDT Pulse 55 07/22/2023 10:29 AM CDT Temperature 35.9 C (96.6 F) 07/22/2023 10:29 AM CDT Respiratory Rate 18 07/22/2023 10:29 AM CDT Oxygen Saturation 95% 07/22/2023 10:29 AM CDT Inhaled Oxygen Concentration - - Weight 78 kg (172 lb) 07/22/2023 10:29 AM CDT Height 165.1 cm (5' 5 ) 07/22/2023 10:29 AM CDT Body Mass Index 28.62 07/22/2023 10:29 AM CDT Plan of Treatment Not on file Medical Devices Implanted Type Area Automation Analyst Device Identifier Shelf Expiration Date Model / Serial / Lot [employer] [id number] Surgisis Biodesign 10x7cm 4 Sheet Freeze Dried Graft Soft Tissue - [id number] - [id number] Implanted:Qty: 1 on 08/06/2017 by Naga Zelaya MD at [facility] Graft N/A: Stomach [employer] 04/24/2018 [id number] / [id number] / [id number] Joints Bilateral: Knee [employer] [id number] Progrip [id number] Self Fixate Monofilament Stunt Man Mesh [employer] - [id number] Implanted:Qty: 1 on 03/27/2021 by Pérez Thakur MD at [facility] [employer] [id number] 09/10/2023 LP [id number] / / [id number] Procedures Procedure Name Priority Date/Time Associated Diagnosis Comments EGFR Routine 04/13/2024 7:17 AM [employer] IN[employer]CTOR COMPREHENSIVE METABOLIC PANEL Routine 04/13/2024 7:17 AM [employer] C[employer] IN[employer]CTOR LIPID PANEL Routine 04/13/2024 7:17 AM T[employer] CAMP INSTRUCTOR DEXA AXIAL SKELETON BONE DENSITY 1 OR MORE SITES Schedule Routine, Read Routine (OP Routine) 07/10/2022 8:05 AM CDT Asymptomatic menopausal state from Last 3 Months or Most Recently Relevant to Health Maintenance Results * eGFR (04/13/2024 7:17 AM [employer] INSTRUCTOR) eGFR 87 >=60 mL/min/1. 73 m2 Comment: Interpretive Data Reference Interval Normal >/= 90 mL/min/1.73m2 Mildly decreased* 60 - 89 mL/min/1.73m2 Mildly to moderately decreased 45 - 59 mL/min/1.73m2 Moderately to severely decreased 30 - 44 mL/min/1.73m2 Severely decreased 15 - 29 mL/min/1.73m2 Kidney Failure < 15 mL/min/1.73m2 *Relative to young adult level Estimated glomerular filtration rate is determined by the 2020 CKD-EPI equation recommended by the National Kidney Foundation (A Unifying Approach to GFR Estimation: Recommendations of the NKF-ASK Task Force on Reassessing the Inclusion of Race in Diagnosing Kidney Disease, JASN 2020). The CKD-EPI equation should not be used for patients with unstable renal function and has not been validated in children and those over 70. Current interpretive data was last reviewed 2020. Testing performed by: [address] [address] Blood 04/13/2024 7:17 AM [employer]AMP IN[employer]CTOR 04/13/2024 9:44 AM TENNIS CAMP INSTRUCTOR us Lavelle Beasley MD LAB BLOOD ORDERABLES Fi nal Result [facility] [address] [facility] Department [place] [address] * Lipid panel (04/13/2024 7:17 AM [employer]ENN[employer] C[employer] INSTRUCTOR) Cholesterol 177 30 - 199 mg/dL Comment: Interpretive Data Ages < or = 19 years Acceptable: <170 mg/dL Borderline high: 170-199 mg/dL High: >or= 200 mg/dL Ages > or = 20 years Desirable: <200 mg/dL Borderline high: 200-239 mg/dL High: >or= 240 mg/dL Literature References: 1. Expert Panel on Integrated Guidelines for Cardiovascular Health and Risk Reduction in Children and Adolescents. Pediatrics 2011;128:S213 2. NCEP Expert Panel. Circulation 2004;110:227 Current Interpretive Data was last revised on 2017. Testing performed by: [address] [address] Triglycerides 104 <=149 mg/dL [facility] Comment: Interpretive Data Ages < or = 9 years Acceptable: <75 mg/dL Borderline high: 75-99 mg/dL High: >or= 100 mg/dL Ages 10 to 20 years Acceptable: <90 mg/dL Borderline high: 90-129 mg/dL High: >or= 130 mg/dL Ages > or = 20 years Desirable: <150 mg/dL Borderline high: 150-199 mg/dL High: 200-499 mg/dL Very high: >or= 499 mg/dL Literature References: 1. Expert Panel on Integrated Guidelines for Cardiovascular Health and Risk Reduction in Children and Adolescents. Pediatrics 2011;128:S213 2. NCEP Expert Panel. Circulation 2004;110:227 Current Interpretive Data was last revised on 2017. Testing performed by: [address] [address] HDL 62 >=40 mg/dL [facility] Comment: Interpretive Data Ages < or = 19 years Acceptable: >45 mg/dL Borderline low: 40-45 mg/dL Low: <40 mg/dL Ages > or = 20 years Desirable: >or= 60 mg/dL Low: <40 mg/dL Literature References: 1. Expert Panel on Integrated Guidelines for Cardiovascular Health and Risk Reduction in Children and Adolescents. Pediatrics 2011;128:S213 2. NCEP Expert Panel. Circulation 2004;110:227 Current Interpretive Data was last revised on 2017. Testing performed by: [address] [address] LDL, calculated 96 <=129 mg/dL [facility] Comment: Interpretive Data Ages < or = 19 years Acceptable: <110 mg/dL Borderline high: 110-129 mg/dL High: >or= 130 mg/dL Ages > or = 20 years Optimal: <100 mg/dL Near optimal: 100-129 mg/dL Borderline high: 130-159 mg/dL High: >160 mg/dL Calculated using the Kaushik LDL-C estimating equation. This equation was implemented on 2023. Prior to this date LDL-C was estimated using the Friedewald equation. Literature References: 1. Expert Panel on Integrated Guidelines for Cardiovascular Health and Risk Reduction in Children and Adolescents. Pediatrics 2011;128:S213 2. NCEP Expert Panel. Circulation 2004;110:227 3. Kaushik Watkins al. KAYLA Cardiol. 2020 June 10;5(5):540-548. doi: 10.1001/jamacardio.2020.0013 Current Interpretive Data was last revised on 2023. Testing performed by: [address] [address] Non-HDL Cholesterol 115 mg/dL [facility] Comment: Interpretive Data Ages < or = 19 years Acceptable: <120 mg/dL Borderline high: 120-144 mg/dL High: >145 mg/dL Ages > or = 20 years When triglycerides are >200 mg/dL, Non-HDL cholesterol is a secondary target of therapy with treatment goals that are 30 mg/dL greater than the LDL cholesterol target. Literature References: 1. Expert Panel on Integrated Guidelines for Cardiovascular Health and Risk Reduction in Children and Adolescents. Pediatrics 2011;128:S213 2. NCEP Expert Panel. Circulation 2004;110:227 Current Interpretive Data was last revised on 2017. Testing performed by: [address] [address] Chol/HDL ratio 3 [facility] Comment:Testing performed by : [address] [address] Blood 04/13/2024 7:17 AM [employer] IN[employer]CTOR 04/13/2024 9:44 AM TENN[employer] INSTRUCTOR us Lavelle Beasley MD LAB BLOOD ORDERABLES Fi nal Result [facility] Department [place] [address] * Comprehensive metabolic panel (04/13/2024 7:17 AM [employer] INSTRUCTOR) Sodium 141 135 - 145 mmol/L Comment:Testing performed by : [address] [address] Potassium, pl 4.0 3.3 - 4.9 mmol/L [facility] Comment:Testing performed by : [address] [address] Chloride 105 97 - 110 mmol/L [facility] Comment:Testing performed by : [address] [address] CO2 26 22 - 32 mmol/L [facility] Comment:Testing performed by : [address] [address] Anion gap 10 2 - 15 mmol/L [facility] Comment:Testing performed by : [address] [address] BUN 13 6 - 25 mg/dL [facility] Comment:Testing performed by : [address] [address] Creatinine 0.70 0.60 - 1.10 mg/dL [facility] Comment:Testing performed by : [address] [address] Glucose 90 70 - 199 mg/dL [facility] Comment: Interpretive Data Fasting glucose >/= 126 mg/dl is diagnostic for diabetes. Fasting is defined as no caloric intake for at least 8 hours. Fasting glucose between 100 mg/dl to 125 mg/dl is diagnostic of prediabetes. In a patient with classic symptoms of hyperglycemia or hyperglycemic crisis, a random glucose >/= 200 mg/dl is diagnostic for diabetes. In the absence of unequivocal hyperglycemia, results should be confirmed by repeat testing. The classification and Diagnosis of Diabetes Diabetes Care 2021; 46: S19-S40. Current interpretive data was last revised 2022. Testing performed by: [address] [address] Calcium 10.2 8.5 - 10.3 mg/dL [facility] Comment:Testing performed by : [address] [address] Bilirubin, total 1.1 0.1 - 1.2 mg/dL [facility] Comment:Testing performed by : [address] [address] Protein, pl 7.0 6.5 - 8.5 g/dL [facility] Comment:Testing performed by : [address] [address] Albumin 4.0 3.5 - 5.0 g/dL [facility] Comment:Testing performed by : [address] [address] Alk phos 81 40 - 130 Units/L [facility] Comment:Testing performed by : [address] [address] ALT 14 7 - 45 Units/L [facility] Comment:Testing performed by : [address] [address] AST 22 10 - 45 Units/L [facility] Comment:Testing performed by : [address] [address] Blood 04/13/2024 7:17 AM TENN[employer] C[employer] INSTRUCTOR 04/13/2024 9:44 AM TENN[employer] C[employer] INSTRUCTOR us Lavelle Beasley MD LAB BLOOD ORDERABLES Fi nal Result [facility] [address] [facility] Department [place] [address] * Dexa Axial Skeleton Bone Density 1 or 2 Site (07/10/2022 8:05 AM CDT) Anatomical Region Laterality Modality Body N/A Mammography 07/10/2022 9:06 PM CDT Narrative 07/10/2022 9:08 PM CDT EXAM DESCRIPTION: DEXA AXIAL SKELETON BONE DENSITY 1 OR MORE SITES REASON FOR STUDY: 76 y/o year old F with given history of screening. Postmenopausal Automation Analyst/Model: myMedScore A (S/N [id number]) CLINICAL INFORMATION: Current height: 63.5 inches Maximum height: 66 inches Weight: 172 pounds Risk factors: Postmenopausal, parental hip fracture COMPARISON: 04/10/2020, 01/20/2017, 12/23/2014, 12/17/2012, 09/04/2007 FINDINGS: AP LUMBAR SPINE L1-L4: Total BMD is 1.037 g/cm2 T-score is -0.1 This is increased in comparison to prior exam which is not statistically significant. LEFT HIP: Total BMD is 0.730 g/cm2 T-score is -1.7 This is decreased in comparison to prior exam which is not statistically significant. Femoral neck BMD is 0.697 g/cm2 T-score is -1.4 FRAX: 10 year risk for a major osteoporotic fracture is 20 %, 10 year risk for a hip fracture is 10 % IMPRESSION: Low Bone Mass. REFERENCE: Bone mineral density: Normal (T-score above or = -1.0) Low bone mass (T-score between -1.0 and -2.5) replaces the previously used term osteopenia Osteoporosis (T-score = or below -2.5) Medical evaluation for secondary causes of low bone mineral density may be appropriate. FRAX is a World Health Organization validated fracture risk assessment tool that calculates a person's 10 year probability of a major osteoporosis related fracture and hip fracture. According to the National Osteoporosis Foundation guidelines, postmenopausal women and men age 50 or older with low bone mass and a 10 year probability of a major osteoporosis related fracture = or greater than 20% or a 10 year probability of a hip fracture = or greater than 3% should be considered for treatment. For further information, including treatment recommendations, please refer to the 2019 ISCD Official Positions (http://www.iscd.org) and the NOF's Clinician's Guide to Prevention and Treatment of Osteoporosis (http://www.nof.org/professionals/clinical-guidelines) THIS IS AN ELECTRONICALLY VERIFIED FINAL REPORT 07/10/2022 9:08 PM - Electronically signed by Tyler Levy M.D. MF: ROSALIE Report ID: [id number] Reading Location: [id number] [facility] Note Tyler Levy MD - 07/10/2022 EXAM DESCRIPTION: DEXA AXIAL SKELETON BONE DENSITY 1 OR MORE SITES REASON FOR STUDY: 76 y/o year old F with given history of screening. Postmenopausal Automation Analyst/Model: [employer] A (S/N [id number]) CLINICAL INFORMATION: Current height: 63.5 inches Maximum height: 66 inches Weight: 172 pounds Risk factors: Postmenopausal, parental hip fracture COMPARISON: 04/10/2020, 01/20/2017, 12/23/2014, 12/17/2012, 09/04/2007 FINDINGS: AP LUMBAR SPINE L1-L4: Total BMD is 1.037 g/cm2 T-score is -0.1 This is increased in comparison to prior exam which is not statistically significant. LEFT HIP: Total BMD is 0.730 g/cm2 T-score is -1.7 This is decreased in comparison to prior exam which is not statistically significant. Femoral neck BMD is 0.697 g/cm2 T-score is -1.4 FRAX: 10 year risk for a major osteoporotic fracture is 20 %, 10 year risk for ahip fracture is 10 % IMPRESSION: Low Bone Mass. REFERENCE: Bone mineral density: Normal (T-score above or = -1.0) Low bone mass (T-score between -1.0 and -2.5) replaces thepreviously used term osteopenia Osteoporosis (T-score = or below -2.5) Medical evaluation for secondary causes of low bone mineral density may be appropriate. FRAX is a World Health Organization validated fracture risk assessmenttool that calculates a person's 10 year probability of a major osteoporosisrelated fracture and hip fracture. According to the National OsteoporosisFoundation guidelines, postmenopausal women and men age 50 or older with low bonemass and a 10 year probability of a major osteoporosis related fracture = or greater than 20% or a 10 year probability of a hip fracture = or greaterthan 3% should be considered for treatment. For further information, including treatment recommendations, please referto the 2019 ISCD Official Positions (http://www.iscd.org) and the NOF's Clinician's Guide to Prevention and Treatment of Osteoporosis (http://www.nof.org/professionals/clinical-guidelines) THIS IS AN ELECTRONICALLY VERIFIED FINAL REPORT 07/10/2022 9:08 PM - Electronically signed by Tyler Levy M.D. MF: ROSALIE Report ID: [id number] Reading Location: [id number] Katarina Nguyen MD IMG DXA PROCEDURES Final Result from Last 3 Months or Most Recently Relevant to Health Maintenance Insurance [employer] MEDICARE [facility] MEDICARE [employer] MEDICARE Advance Directives For more information, please contact: [phone] * Full Code (Latest Code Status on File) Date Activated Date Inactivated Comments 08/13/2017 10:42 AM 08/14/2017 12:45 PM * Full Code Date Activated Date Inactivated Comments 08/06/2017 3:28 PM 08/08/2017 4:15 PM Care Teams Director Of Entertainment Relationship Specialty Start Date End Date [place] [address] [facility] [address] [place], [place] [address] PCP - General Family Medicine 04/13/24 Pérez Thakur MD [address] [facility] [address] [place], [place] [address] Consulting Physician General Surgery 03/27/21
--- OUTSIDE RECORDS SUMMARY | 2024-04-22 11:47 | XMS_ITS | Clinical Summary ---
Author Organization [place] [id number] [facility] Address [address] [place] [address] Care Team Providers Care Wind Turbine Installer Name Role Phone Pérez Thakur MD Unavailable [phone] Parish Amanda Primary Care Provider [phone] Allergies No known active allergies Medications estradiol [...] 12/05/2021 Tear of left retina without detachment Tear of right retina without detachment 12/06/19 [...] 04/25/2020 Assessment & Plan (01/18/2021 10:34 AM DIPLOMATIC COURIER): This was not an issue at this [...] exercise Assessment & Plan (01/16/2022 10:46 AM DIPLOMATIC COURIER): CPM and exercise Assessment & Plan (07/17/2021 9:38 AM CDT): CPM and due for bone density Assessment & Plan (06/27/2021 11:06 AM CDT): Continue medications diet vitamin-D calcium and exercise Assessment & Plan (07/13/2020 1:38 PM CDT): This is currently controlled with medications continue to follow and exercise Assessment & Plan (01/12/2020 2:11 PM DIPLOMATIC COURIER): Continue vitamin-D and calcium, she is scheduled for a bone density Assessment & Plan (07/13/2019 2:25 PM CDT): Vitamin D and calcium Palpitations 03/25/2016 Assessment & Plan (07/21/2023 6:21 AM CDT): This is a well controlled chronic condition we will continue to follow. Assessment & Plan (06/12/2023 10:48 AM CDT): Resolved with K+ use. Patient to follow up Dr. Salazar health counselor on 07/17/2023. Patient to return to ER [...] follow Assessment & Plan (01/16/2022 10:46 AM DIPLOMATIC COURIER): Well controlled Assessment & Plan (07/17/2021 9:37 AM CDT): Appears to have had a reaction possible to new medications, will hold and go back to atenolol until her f/u Assessment & Plan (06/27/2021 11:06 AM CDT): This is currently controlled with medications will continue to follow Assessment & Plan (01/18/2021 10:34 AM DIPLOMATIC COURIER): This is currently well controlled Assessment & Plan (07/13/2020 1:38 PM CDT): This is well controlled medications patient does see Cardiology follow-up routine Assessment & Plan (01/12/2020 2:11 PM DIPLOMATIC COURIER): These are currently well controlled Assessment & [...] routine Assessment & Plan (01/16/2022 10:45 AM DIPLOMATIC COURIER): Images from the original note were not [...] routine Assessment & Plan (01/18/2021 10:34 AM DIPLOMATIC COURIER): This is a stable chronic condition. Monitor [...] routine Assessment & Plan (01/12/2020 2:11 PM DIPLOMATIC COURIER): Images from the original note were not [...] follow Assessment & Plan (01/16/2022 10:45 AM DIPLOMATIC COURIER): Controlled, will follow, no si/hi Assessment & Plan (07/17/2021 9:38 AM CDT): Appears controlled, unsure if recent incident in ER was partially anxiety, will follow, well collected in clinic Assessment & Plan (06/27/2021 11:06 AM CDT): This is well controlled will continue to follow Assessment & Plan (01/18/2021 10:33 AM DIPLOMATIC COURIER): This is no longer an issue Assessment & Plan (07/27/2020 3:21 PM CDT): Well controlled Assessment & Plan (07/13/2020 1:37 PM CDT): This is currently well controlled we will continue to follow Assessment & Plan (05/22/2020 10:31 AM CDT): This is currently controlled off meds, we will continue to follow Assessment & Plan (01/12/2020 2:10 PM DIPLOMATIC COURIER): Patient is wanting to wean herself off [...] routine. Assessment & Plan (01/16/2022 10:46 AM DIPLOMATIC COURIER): Patient is to continue present medications, work [...] routine. Assessment & Plan (01/18/2021 10:34 AM DIPLOMATIC COURIER): Patient is to continue present medications, work [...] routine. Assessment & Plan (01/12/2020 2:11 PM DIPLOMATIC COURIER): Patient is to continue present medications, work [...] understanding Assessment & Plan (01/16/2022 10:45 AM DIPLOMATIC COURIER): Images from the original note were not [...] understanding Assessment & Plan (01/18/2021 10:34 AM DIPLOMATIC COURIER): Images from the original note were not [...] understanding Assessment & Plan (01/12/2020 2:11 PM DIPLOMATIC COURIER): Images from the original note were not [...] 09/26/2015 Finding of above normal blood pressure 6 Wears eyeglasses 11/10/2014 Retinal lattice degeneration [...] am reaching out to cardiology for approval Encounters Date Type Department Care Team Description 04/13/2024 7:05 AM DIPLOMATIC COURIER Lab [facility] Building [address] [address] from Last 3 Months Immunizations Immunization Administration Dates Next Due Hep [...] PPV23 07/13/2020 Tdap 10/31/2011 ZOSTER Recombinant 06/18/2018,04/17/2018 Surgical History Surgery Date Site/Laterality Comments DE ARTHROPLASTY KNEE TIBIAL PLATEAU Knee Replacement - (Added by TW Conv) KNEE SURGERY COLONOSCOPY TONSILLECTOMY HERNIA REPAIR BREAST BIOPSY 11/10/2015 Left VAGINAL DELIVERY x2 Medical History Medical History Date Comments Anxiety disorder Anxiety - (Adde d by TW Conv) Personal history of other di seases of the circulatory system History of hypertension - (A dded by TW Conv) Personal history of other en docrine, nutritional and metabolic disease History of hyperlipi demia - (Added by TW Conv) Hypertension Knee joint replacement by other means 06/18/2011 Heartburn Allergic rhinitis Irritable bowel syndrome Family History Medical History Relation Name Comments Heart disease Father Heart attack Maternal Grandfather Heart disease Maternal Grandmother No Known Problems Mother Heart disease Paternal Grandfather Heart disease Paternal Grandmother Breast cancer Neg Hx Relation Name Status Comments Father (Age 76) Maternal Grandfather Maternal Grandmother Mother (Age 94) Paternal Grandfather Paternal Grandmother Social History Tobacco Use Types Packs/Day Years [...] on file Legal Sex Female 10:44 AM DIPLOMATIC COURIER Gender Identity Female 02/21/2021 1:01 PM DIPLOMATIC COURIER Sexual Orientation Not on file Obstetrics History Para Term AB IAB SAB Ectopic Multiple Livin g Live Births 2 2 2 Date Outcome GA Total Labor Labor/2nd/3rd Weight Sex Type Anes PTL Coby A1 A5 Name Clin Term Term Last Filed Vital Signs Vital Sign Reading [...] 07/22/2023 10:29 AM CDT Plan of Treatment Health Maintenance Due Date Last Done Comments Hepatitis B Screening 08/29/1963 Covid-19 Vaccine (2023-2 5 season) 2023 10/30/2022, 10/30/2021, 05/14/2021, Additional history exists Influenza Vaccine (#1) 2023 , 10/30/2022, 10/30/2021, Additional history exists Osteoporosis Screening-Bone Density Scan 07/10/2024 07/10/2022, 04/10/2020, 01/20/2017, Additional history exists Depression Screening 07/21/2024 07/22/2023, 07/18/2022, 07/17/2021, Additional history exists Fall Risk Assessment 07/21/2024 07/22/2023, 07/18/2022, 05/16/2022, Additional history exists Well Visit 65+ 07/21/2024 07/22/2023, 09/2022, 07/17/2021, Additional history exists DTaP/Tdap/Td Vaccine Discontinued 10/31/2011 Zoster Vaccine Completed 06/18/2018, 04/17/2018 Pneumococcal vaccine 65+ Completed 07/13/2020, 10/11 Medical Devices Implanted Type Area Sports Therapist Device Identifier Shelf Expiration Date Model / Serial / Lot [employer] Inc [id number] Surgisis Biodesign 10x7cm 4 Sheet Freeze Dried Graft Soft Tissue - [id number] - [id number] Implanted:Qty: 1 on 08/06/2017 by Naga Zelaya MD at [facility] Graft N/A: Stomach [employer] 04/24/2018 [id number] / [id number] / [id number] Joints Bilateral: Knee Medtronic Inc [id number] Progrip 13b10we Self Fixate Monofilament Passenger Barge Master Mesh Surgical - [id number] Implanted:Qty: 1 on 03/27/2021 by Pérez Thakur MD at [facility] [employer] [id number] 09/10/2023 LP [id number] / / [id number] Procedures Procedure Name Priority Date/Time Associated Diagnosis Comments EGFR Routine 04/13/2024 7:17 AM DIPLOMATIC COURIER COMPREHENSIVE METABOLIC PANEL Routine 04/13/2024 7:17 AM DIPLOMATIC COURIER LIPID PANEL Routine 04/13/2024 7:17 AM DIPLOMATIC COURIER DEXA AXIAL SKELETON BONE DENSITY 1 OR MORE SITES Schedule Routine, Read Routine (OP Routine) 07/10/2022 8:05 AM CDT Asymptomatic menopausal state from Last 3 Months or Most Recently Relevant to Health Maintenance Results * eGFR (04/13/2024 7:17 AM DIPLOMATIC COURIER) eGFR 87 >=60 mL/min/1. 73 m2 Comment: [...] was last reviewed 2020. Testing performed by: [facility], [address] [place] [address]., [address] Blood 04/13/2024 7:17 AM DIPLOMATIC COURIER 04/13/2024 9:44 AM DIPLOMATIC COURIER us Lavelle Beasley MD LAB BLOOD ORDERABLES Fi nal Result [facility] [address] [facility] Department [place] [address] * Lipid panel (04/13/2024 7:17 AM DIPLOMATIC COURIER) Cholesterol 177 30 - 199 mg/dL Comment: [...] last revised on 2017. Testing performed by: [facility], [address] [place] [address]., [address] Triglycerides 104 <=149 mg/dL [facility] Comment: Interpretive Data Ages < or = [...] last revised on 2017. Testing performed by: [address] [address] HDL 62 >=40 mg/dL [facility] Comment: Interpretive [...] last revised on 2017. Testing performed by: [address] [address] LDL, calculated 96 <=129 mg/dL [facility] Comment: [...] last revised on 2023. Testing performed by: [address] [address] Non-HDL Cholesterol 115 mg/dL [facility] Comment: Interpretive [...] last revised on 2017. Testing performed by: [address] [address] Chol/HDL ratio 3 [facility] Comment:Testing performed by : [address] [address] Blood 04/13/2024 7:17 AM DIPLOMATIC COURIER 04/13/2024 9:44 AM DIPLOMATIC COURIER us Lavelle Mari Beasley MD LAB BLOOD ORDERABLES Fi nal Result [facility] [address] [facility] Department [place] [address] * Comprehensive metabolic panel (04/13/2024 7:17 AM DIPLOMATIC COURIER) Sodium 141 135 - 145 mmol/L Comment:Testing performed by : [address] [address] Potassium, pl 4.0 3.3 - 4.9 mmol/L [facility] Comment:Testing performed by : [address] [address] Chloride 105 97 - 110 mmol/L [facility] Comment:Testing performed by : [address] [address] CO2 26 22 - 32 mmol/L [facility] Comment:Testing performed by : [address] [address] Anion gap 10 2 - 15 mmol/L [facility] Comment:Testing performed by : [address] [address] BUN 13 6 - 25 mg/dL [facility] Comment:Testing performed by : [address] [address] Creatinine 0.70 0.60 - 1.10 mg/dL [facility] Comment:Testing performed by : [address] [address] Glucose 90 70 - 199 mg/dL [facility] Comment: Interpretive Data Fasting glucose >/= 126 [...] was last revised 2022. Testing performed by: [address] [address] Calcium 10.2 8.5 - 10.3 mg/dL [facility] Comment:Testing performed by : [address] [address] Bilirubin, total 1.1 0.1 - 1.2 mg/dL [facility] Comment:Testing performed by : [address] [address] Protein, pl 7.0 6.5 - 8.5 g/dL [facility] Comment:Testing performed by : [address] [address] Albumin 4.0 3.5 - 5.0 g/dL [facility] Comment:Testing performed by : [address] [address] Alk phos 81 40 - 130 Units/L [facility] Comment:Testing performed by : [address] [address] ALT 14 7 - 45 Units/L [facility] Comment:Testing performed by : [address] [address] AST 22 10 - 45 Units/L [facility] Comment:Testing performed by : [address] [address] Blood 04/13/2024 7:17 AM DIPLOMATIC COURIER 04/13/2024 9:44 AM DIPLOMATIC COURIER Lavelle Beasley MD LAB BLOOD ORDERABLES Fi nal Result [facility] [address] [facility] Department [place] [address] * Dexa Axial Skeleton Bone Density 1 or 2 Site (07/10/2022 8:05 AM CDT) Anatomical Region Laterality Modality Body N/A Mammography 07/10/2022 9:06 PM CDT Narrative 07/10/2022 9:08 PM CDT EXAM DESCRIPTION: DEXA AXIAL SKELETON BONE DENSITY 1 OR MORE SITES REASON FOR STUDY: 76 y/o year old F with given history of screening. Postmenopausal Sports Therapist/Model: [employer] A ([id number]/N [id number]) CLINICAL INFORMATION: Current height: 63.5 inches Maximum [...] Tyler Levy M.D. MF: ROSALIE Report ID: [id number] Reading Location: [address] Note Tyler Levy MD - 07/10/2022 EXAM DESCRIPTION: DEXA AXIAL SKELETON BONE DENSITY 1 OR MORE SITES REASON FOR STUDY: 76 y/o year old F with given history of screening. Postmenopausal Sports Therapist/Model: [employer] A ([id number]/N [id number]) CLINICAL INFORMATION: Current height: 63.5 inches Maximum [...] Tyler Levy M.D. MF: ROSALIE Report ID: [id number] Reading Location: [place] [address] Katarina Nguyen MD IM DXA PROCEDURES Final Result from Last 3 Months or Most Recently Relevant to Health Maintenance Insurance [employer] MEDICARE [facility] MEDICARE [facility] MEDICARE Advance Directives For more information, please contact: [phone] * Full Code (Latest Code Status on File) Date Activated Date Inactivated Comments 08/13/2017 10:42 AM 08/14/2017 12:45 PM * Full Code Date Activated Date Inactivated Comments 08/06/2017 3:28 PM 08/08/2017 4:15 PM Care Teams Wind Turbine Installer Relationship Specialty Start Date End Date Parish Amanda PA [facility] [address] [address] PCP - General Family Medicine 04/13/24 Pérez Thakur MD [address] [address] Consulting Physician General Surgery 03/27/21
--- OUTSIDE RECORDS SUMMARY | 2024-04-22 11:47 | XMS_ITS | Patient Health Summary ---
Author Organization [facility] Address [address] [place] [address] Care Team Providers Care Supervisor Pipeline Name Role Phone Amado High MD Unavailable [phone] Parish Amanda PA-C Primary Care Provider [phone] Note from [facility],non-owned Affiliates and Associated Physician Practices is amultiple site organization consisting of ambulatory clinics and hospital sitesin [place], [place], [place] and [place]. This disclosure is being madepursuant to the Care Everywhere program and may not contain all information available regarding this patient. Last updated 17.[facility] Allergies No known active allergies Medications * Be aware that medications may not be up to date on this document. Alwaysverify current medications with the patient. * atenolol (TENORMIN) 25 MG tablet(Started 05/06/2018) TK 1 T PO QD 3 refills left * atorvastatin (LIPITOR) 10 MG tablet(Started 05/06/2018) TK 1 T PO QHS 3 refills left * Cholecalciferol 1000 UNIT/10ML * Coenzyme Q10 (CO Q 10) 10 MG * estradiol (VAGIFEM) 10 MCG vaginal tablet Insert 10 mcg into the vagina Two times a week * Flaxseed, Linseed, (FLAXSEED OIL) 1000 MG Take 1 tablet by mouth once daily * Lactobacillus Casei-Folic Acid 15-0.25 MG PACK Take 1 tablet by mouth once daily * lisinopril-hydroCHLOROthiazide (PRINZIDE; ZESTORETIC) 20-25 MG tablet(Started 05/06/2018) TK 1 T PO QD 3 refills left * multivitamin (OPURITY) CHEW tablet Take 1 tablet by mouth * omeprazole (PRILOSEC) 20 MG capsule Take 20 mg by mouth once daily * ondansetron, disintegrating, (ZOFRAN ODT) 4 MG tablet(Started 01/02/2018) Take 4 mg by mouth * PARoxetine (PAXIL) 10 MG tablet Take 10 mg by mouth * raloxifene (EVISTA) 60 MG tablet(Started 05/06/2018) TK 1 T PO QD * saccharomyces (FLORASTOR EXTRA STR) 250 MG capsule * SHINGRIX 50 MCG/0.5ML SUSR injection(Started 06/18/2018) * celecoxib (CELEBREX) 200 MG capsule(Started 04/11/2020) Take 1 (one) capsule by mouth 2 times daily 5 refills by 04/11/2021 Active Problems Problem Noted Date Diagnosed Date [...] Sex Assigned at Female 04/10/2020 5:07 PM SPRAY CREW Gender Identity Female 04/10/2020 5:07 PM SPRAY CREW Sexual Orientation Not on file Last Filed [...] Mass Index 29.05 06/23/2018 2:01 PM CDT Procedures * XR PELVIS 1 OR 2VW(Performed 04/11/2020) Performed for Presence of both artificial knee joints, Right hip pain * XR KNEE BILAT 3VW(Performed 04/11/2020) Performed for Presence of both artificial knee joints * XR KNEE BILAT 3VW(Performed 06/23/2018) Performed for Chronic pain of both knees * XR KNEE BILAT 3VW(Performed 10/12/2013) Performed for Knee pain, unspecified laterality * DERMATOPATHOLOGY(Performed 03/15/2013) * XR KNEE BILAT 3VW(Performed 06/18/2011) Performed for Osteoarthrosis, unspecified whether generalized or localized, lower leg * HGB HCT PANEL(Performed 07/02/2008) Performed for Osteoarth NOS-Unspec * HGB HCT PANEL(Performed 07/01/2008) Performed for Osteoarth NOS-Unspec * HGB HCT PANEL(Performed 06/30/2008) Performed for Osteoarth NOS-Unspec * HGB HCT PANEL(Performed 02/20/2008) Performed for Joint Pain-L/Leg * HGB HCT PANEL(Performed 02/19/2008) Performed for Joint Pain-L/Leg Results * XR PELVIS 1 OR 2VW (04/11/2020 12:45 PM SPRAY CREW) Anatomical Region Laterality Modality Pelvis Computed Radiogr aphy Narrative 04/11/2020 12:46 PM SPRAY CREW Phyllis Messer RT(R) 04/12/2020 5:18 PM See progress notes for results Hloly Harrington PA-C DIAGNOSTIC IM AGING ORDERABLES * XR KNEE BILAT 3VW (04/11/2020 12:24 PM SPRAY CREW) Only the most recent of4 resultswithin the time period is included. Anatomical Region Laterality Modality Lower Extremity Computed Radiogr aphy Narrative 04/11/2020 12:25 PM SPRAY CREW Phyllis Messer RT(R) 04/12/2020 5:18 PM See progress notes for results Amado High MD DIAGNOSTIC IMAGING O RDERABLES * PATHOLOGY TISSUE FOR DERMATOLOGY (03/15/2013 12:00 AM SPRAY CREW) Result CASE: [id number] PATIENT: JOANNA GREGORIO PATHOLOGIC DIAGNOSIS: Left outer lip: SOLAR ELASTOSIS (see microscopic description) CLINICAL DATA: R/O BCC, irritated, non-healing. GROSS DESCRIPTION: Received is one formalin filled container labeled with the patient's name and designated left outer lip. The specimen consists of a shave measuring [id number] 2x2x1 mm. Jar 0. MICROSCOPIC DESCRIPTION: The epidermis is unremarkable. The dermis shows a proliferation of elastic fibers in the superficial dermis that are increased in thickness. Tumor is not seen. Additional deeper sections were obtained and reviewed. Electronically signed out by Veronique Delcid M.D. 03/17/2013 2:58:51PM [facility] Comment: Performed at: Dermatopathology Laboratory [facility] Department of Dermatology [address] [place] [address], 5th [place] [address] Phone number: [phone] FAX: [phone] 03/15/2013 03/16/2013 Ashley Maza MD LAB - PATHOLOGY/CYT OLOGY ORDERABLES Performing Organization Address City/[facility]/ZIP Co de Phone Number [facility] [address] [place] [address]. 5th Floor Lab B [address] [phone] * (ABNORMAL) HGB HCT PANEL (07/02/2008 2:20 AM CDT) Only the most recent of5 resultswithin the time period is included. Hemoglobin 9.6(L) 12.0 - 16.0 gm/dl [facility] Hematocrit 28.0(L) 36.0 - 48.0 % [facility] BLOOD SPECIMEN / Unknown 07/02/2008 2:20 AM CDT Aamdo High MD LAB - HEMATOLOGY ORD ERABLES [facility] [address] [place] [address] Care Teams Supervisor Pipeline Relationship Specialty Start Date End Date Parish Amanda PA-C PCP - General 06/18/11 Amado High MD Orthopedic Surgery 06/18/11
--- OUTSIDE RECORDS SUMMARY | 2024-04-22 11:47 | XMS_ITS | Encounter Summary ---
Author Organization [facility] Facility Care Team Providers Care Water Hydrant Installer Name Role Phone Parish Amanda Primary Care Provider [phone] Pérez Thakur MD Unavailable [phone] Parish Amanda Primary Care Provider [phone] Encounter Details Date Type Department Care Team (Latest Contact Info) Description 03/02/2016 Orders Only [facility]CON[facility] ProviderRomán MD [address] [place], [place] [id number] Social History Tobacco Use Types Packs/Day Years Used Date Smoking Tobacco: Never Assessed Comments Unknown Sex and Gender Information Value Date Recorded Sex Assigned at Not on file Legal Sex Female 10:44 AM CABLE INSPECTOR Gender Identity Female 02/21/2021 1:01 PM CABLE INSPECTOR Sexual Orientation Not on file documented as of this encounter Plan of Treatment Not on file documented as of this encounter Procedures Procedure Name Priority Date/Time Associated Diagnosis Comments CARDIOLOGY REPORT 03/11/2016 12: 00 AM CABLE INSPECTOR CARDIOLOGY REPORT 03/11/2016 12: 00 AM CABLE INSPECTOR documented in this encounter Results * CARDIOLOGY REPORT (03/11/2016 12:00 AM CABLE INSPECTOR) Anatomical Region Laterality Modality Other Narrative 03/11/2016 12:00 AM CABLE INSPECTOR Ordered by an unspecified provider. Historical Provider [facility] JONAS ROWE Final Result * CARDIOLOGY REPORT (03/11/2016 12:00 AM CABLE INSPECTOR) Anatomical Region Laterality Modality Other Narrative 03/11/2016 12:00 AM CABLE INSPECTOR Ordered by an unspecified provider. us Historical Provider [facility] JONAS ROWE Final Result documented in this encounter Visit Diagnoses Not on filedocumented in this encounter Care Teams Water Hydrant Installer Relationship Specialty Start Date End Date Parish Amanda PA PCP - General 09/16/18 10/28/23 Parish Amanda PA [address] [facility] [address] [place], [place] [id number] PCP - General Family Medicine 04/13/24 Pérez Thakur MD [address] [place] [address] Consulting Physician General Surgery 03/27/21 documented as of this encounter
--- OUTSIDE RECORDS SUMMARY | 2024-04-22 11:47 | XMS_ITS | Encounter Summary ---
Author Organization [facility] Address [address] [place] [address] Care Team Providers Care Grocery Store Associate Name Role Phone Parish Amanda Primary Care Provider [phone] Pérez Thakur MD Unavailable [phone] Parish Amanda Primary Care Provider [phone] Encounter Details Date Type Department Care Team (Late st Contact Info) Description 09/25/2012 Orders Only [facility] Health Information Management [address] [place] [address] Scanning, Provider Social History Tobacco Use Types Packs/Day Years Used Date Smoking Tobacco: Never Assessed Comments Unknown Sex and Gender Information Value Date Recorded Sex Assigned at Not on file Legal Sex Female 10:44 AM SENIOR PORTFOLIO MANAGER Gender Identity Female 02/21/2021 1:01 PM SENIOR PORTFOLIO MANAGER Sexual Orientation Not on file documented as of this encounter Plan of Treatment Not on file documented as of this encounter Procedures Procedure Name Priority Date/Time Associated Diagnosis Comments CARDIOLOGY DOCUMENT SCAN 09/25/2012 documented in this encounter Results * SCAN - CARDIOLOGY (09/25/2012) Anatomical Region Laterality Modality Other us Provider Scanning [facility] PROCEDURES Final Result documented in this encounter Visit Diagnoses Not on filedocumented in this encounter Care Teams Grocery Store Associate Relationship Specialty Start Date End Date Parish Amanda PA PCP - General 09/16/18 10/28/23 Parish Amanda PA [address] [facility] [address] [place], [place] [address] PCP - General Family Medicine 04/13/24 Pérez Thakur MD [address] [facility] [address] [place], [place] [address] Consulting Physician General Surgery 03/27/21 documented as of this encounter
--- OUTSIDE RECORDS SUMMARY | 2024-04-22 11:47 | XMS_ITS | Encounter Summary ---
Author Organization [facility] Facility Care Team Providers Care Application Support Technician Name Role Phone Parish Amanda Primary Care Provider [phone] Pérez Thakur MD Unavailable [phone] Parish Amanda Primary Care Provider [phone] Encounter Details Date Type Department Care Team (Latest Contact Info) Description 07/28/2015 Orders Only [facility] CLINCONV ProviderRomán MD [address] [place] [address] Social History Tobacco Use Types Packs/Day Years Used Date Smoking Tobacco: Never Assessed Comments Unknown Sex and Gender Information Value Date Recorded Sex Assigned at Not on file Legal Sex Female 10:44 AM MARINE ELECTRICIAN APPRENTICE Gender Identity Female 02/21/2021 1:01 PM MARINE ELECTRICIAN APPRENTICE Sexual Orientation Not on file documented as of this encounter Plan of Treatment Not on file documented as of this encounter Procedures Procedure Name Priority Date/Time Associated Diagnosis Comments SCAN - LABS 07/28/2015 12:00 AM CDT documented in this encounter Results * SCAN - LABS (07/28/2015 12:00 AM CDT) Narrative 07/28/2015 12:00 AM CDT Ordered by an unspecified provider. Historical Provider Final Res ult documented in this encounter Visit Diagnoses Not on filedocumented in this encounter Care Teams Application Support Technician Relationship Specialty Start Date End Date Parish Amanda PA PCP - General 09/16/18 10/28/23 Parish Amanda PA [address] [facility] [address] [place], [place] [id number] PCP - General Family Medicine 04/13/24 Pérez Thakur MD [address] [place] [address] [id number] Consulting Physician General Surgery 03/27/21 documented as of this encounter
--- OUTSIDE RECORDS SUMMARY | 2024-04-22 11:47 | XMS_ITS ---
Author Organization [facility] Address [address] [place], [place] [phone] Care Team Providers Care Light Fixture Servicer Name Role Phone RUDY MAS Unavailable [phone] Parish Amanda Unavailable Unavailable REASON FOR VISIT The patient was able to return to shoes without issues following her left-sided hammertoe surgery. She is very pleased. She has a new issue and that is with an ingrown toenail on the right great toe.The last time she had an ingrown was in High School. She does not recall any recent accident or injury to cause this one Medications Medication SIG (Take, Route, Frequency, Duration) Notes Start Date End Date Status HYDROcodone-Acetaminop hen 5-325 MG 1 tablet as needed Orally every 6 hrs As needed for pain. 024 Active atorvastatin 10 MG Oral Tablet [Lipitor] ORAL atorvastatin 10 MG Oral Tabl et [Lipitor]Original Medicationatorvastatin 10 MG Oral Tablet [Lipitor] *Reorder from [employer] for eRx and Interaction Alerts* 015 Active Atenolol 25 MG Oral Tablet ORAL atenolol 25 MG Oral TabletOriginal Medicationatenolol 25 MG Oral Tablet *Reorder from [employer] for eRx and Interaction Alerts* 015 Active hydrochlorothiazide 25 MG / lisinopril 20 MG Oral Tablet ORAL hydrochlorothiazide 25 MG / lisinopril 20 MG Oral TabletOriginal Medicationhydrochlorothiazide 25 MG / lisinopril 20 MG Oral Tablet *Reorder from [employer] for eRx and Interaction Alerts* 015 Active esomeprazole 40 MG Delayed Release Oral Capsule [Nexium] ORAL esomeprazole 40 MG Delayed Release Oral Capsule [Nexium]Original Medicationesomeprazole 40 MG Delayed Release Oral Capsule [Nexium] *Reorder from [facility] for eRx and Interaction Alerts* 015 Active raloxifene hydrochloride 60 MG Oral Tablet [Evista] ORAL raloxifene hydrochloride 60 MG Oral Tablet [Evista]Original Medicationraloxifene hydrochloride 60 MG Oral Tablet [Evista] *Reorder from [facility] for eRx and Interaction Alerts* 015 Active Vital Signs Weight 170 lbs 02/25/2024 Weight-kg 77.11 kg 02/25/2024 Height 66.00 in 02/25/2024 Height-cm 167.64 cm 02/25/2024 BMI 27.44 kg/m2 02/25/2024 Encounters Encounter Location Date Provider Diagnosis [facility] [place] [id number] [id number] 02/25/2024 RUDY SNOOK Ingrowing nail L60.0 ; Other hammer toe(s) (acquired), left foot M20.42 ; Pain in right toe(s) M79.674 and Encounter for other specified surgical aftercare Z48.89 Assessments Encounter Date Diagnosis (ICD Code) Assessment Notes Treatment Notes Treatment Clinical Notes Section Notes 02/25/2024 Ingrowing nail (ICD-10 - L60.0) Slant Back Toenail: Following skin prep, the offending nail border was debrided without anesthesia. The patient was instructed on monitoring for infection or recurrence. Soaks: Patient was instructed to soak the affected foot with warm water and epsom salts 15 minutes twice a day. 02/25/2024 Other hammer toe(s) (acquired), left foot (ICD-10 - M20.42) Resolved. 02/25/2024 Pain in right toe(s) (ICD-10 - M79.674) 02/25/2024 Encounter for other specified surgical aftercare (ICD-10 - Z48.89) Plan Of Treatment Treatment Notes Assessment Notes Ingrowing nail Slant Back Toenail: Following skin prep, the offending nail border was debrided without anesthesia. The patient was instructed on monitoring for infection or recurrence. Soaks: Patient was instructed to soak the affected foot with warm water and epsom salts 15 minutes twice a day. Other hammer toe(s) (acquired), left romina t Resolved. Next Appt Details Follow Up: prn, Reason: If t he right great toenail continues to bother her, recommend matrixectomy Progress Notes * ANSHUL GREGORIO JDOB:1945 (78 yo F)Acc No.[id number]:02/25/2024 Patient: ANSHUL GARZA Provider: Anthony Mas DPM :1945 A ge:78 Y S ex:Female Date:02/25/2024 Address:[address] [place] [address], [place], [id number] Subjective: * Chief Complaints: * T he patient was able to return to shoes without issues following her left-sided hammertoe surgery. She is very pleased. She has a new issue and that is with an ingrown toenail on the right great toe. The last time she had an ingrown was in High School. She does not recall any recent accident or injury to cause this one * HPI: H PI: New Complaint E stablished patient presents with a new complaint., Patient complains of an issue to right big toe lateral border possibly ingrown. , MA:YUN. Follow Up Visit P atient presents for follow up visit for post operative on the left foot. , Patient states their problem is, improving. Patient states returning to shoes has gone good. , MA: YUN. * ROS: G eneral / Constitutional: Patient denies c hills, fever, weakness, night sweats. M usculoskeletal: Patient denies c hildhood foot problems, weakness. P atient complains of o rthopedic implants. P eripheral Vascular: Patient denies u lceration of feet, cold extremities. ? S kin: Patient denies u lcerations, discoloration. P atient complains of i ngrown nails. N eurologic: Patient denies b alance difficulty, confusion, difficulty speaking, dizziness. * Medical History: * Surgical History: K nee Surgery Hernia * Hospitalization/Major Diagno stic Procedure: * Family History: F ather: PRN - Father: :: Stroke,,known absent , :: Hypertension,,known absent . M other: PRN - Mother: :: Hypertension,,known absent . * Social History: M igrated Social History: M igrated Social History: Smoking Status : Never smoked , History of tobacco use :. * Medications: T akingAtenolol 25 MG Oral Tablet ORAL , Notes to Pharmacist: atenolol 25 MG Oral TabletOriginal Medicationatenolol 25 MG Oral Tablet *Reorder from [facility] for eRx and Interaction Alerts*atorvastatin 10 MG Oral Tablet [Lipitor] ORAL , Notes to Pharmacist: atorvastatin 10 MG Oral Tablet [Lipitor]Original Medicationatorvastatin 10 MG Oral Tablet [Lipitor] *Reorder from [facility] for eRx and Interaction Alerts*esomeprazole 40 MG Delayed Release Oral Capsule [Nexium] ORAL , Notes to Pharmacist: esomeprazole 40 MG Delayed Release Oral Capsule [Nexium]Original Medicationesomeprazole 40 MG Delayed Release Oral Capsule [Nexium] *Reorder from [facility] for eRx and Interaction Alerts*hydrochlorothiazide 25 MG / lisinopril 20 MG Oral Tablet ORAL , Notes to Pharmacist: hydrochlorothiazide 25 MG / lisinopril 20 MG Oral TabletOriginal Medicationhydrochlorothiazide 25 MG / lisinopril 20 MG Oral Tablet *Reorder from [facility] for eRx and Interaction Alerts*raloxifene hydrochloride 60 MG Oral Tablet [Evista] ORAL , Notes to Pharmacist: raloxifene hydrochloride 60 MG Oral Tablet [Evista]Original Medicationraloxifene hydrochloride 60 MG Oral Tablet [Evista] *Reorder from [facility] for eRx and Interaction Alerts*HYDROcodone-Acetaminophen 5-325 MG Tablet 1 tablet as needed Orally every 6 hrs As needed for pain.Medication List reviewed and reconciled with the patientTaking Atenolol 25 MG Oral Tablet ORAL , Notes to Pharmacist: atenolol 25 MG Oral TabletOriginal Medicationatenolol 25 MG Oral Tablet *Reorder from [facility] for eRx and Interaction Alerts*Taking atorvastatin 10 MG Oral Tablet [Lipitor] ORAL , Notes to Pharmacist: atorvastatin 10 MG Oral Tablet [Lipitor]Original Medicationatorvastatin 10 MG Oral Tablet [Lipitor] *Reorder from [facility] for eRx and Interaction Alerts*Taking esomeprazole 40 MG Delayed Release Oral Capsule [Nexium] ORAL , Notes to Pharmacist: esomeprazole 40 MG Delayed Release Oral Capsule [Nexium]Original Medicationesomeprazole 40 MG Delayed Release Oral Capsule [Nexium] *Reorder from [facility] for eRx and Interaction Alerts*Taking hydrochlorothiazide 25 MG / lisinopril 20 MG Oral Tablet ORAL , Notes to Pharmacist: hydrochlorothiazide 25 MG / lisinopril 20 MG Oral TabletOriginal Medicationhydrochlorothiazide 25 MG / lisinopril 20 MG Oral Tablet *Reorder from [facility] for eRx and Interaction Alerts*Taking raloxifene hydrochloride 60 MG Oral Tablet [Evista] ORAL , Notes to Pharmacist: raloxifene hydrochloride 60 MG Oral Tablet [Evista]Original Medicationraloxifene hydrochloride 60 MG Oral Tablet [Evista] *Reorder from [facility] for eRx and Interaction Alerts*Taking HYDROcodone-Acetaminophen 5-325 MG Tablet 1 tablet as needed Orally every 6 hrs As needed for pain.Medication List reviewed and reconciled with the patient Objective: * Vitals: W t: 170 lbs, Wt-k.11 kg, Ht: 66.00 in, Ht-cm: 167.64 cm, BMI: 27.44 Index, Body Surface Area: 1.89. * Examination: C onstitutional: Constitutional T he patient is awake, alert, well developed, well groomed and well nourished. D ermatologic: Skin findings: S kin is warm, dry, supple with no breaks in the skin. Ingrown Nail t he lateral border of the right hallux is incurvated. There is slight erythema, but no calor. No break in the skin, no drainage. V ascular: Dorsalis pedis pulse: 2 /4, bilateral. Posterior tibial pulse: 2 /4, bilateral. Capillary refill: l ess than 3 seconds. Edema: N o edema, bilateral. N eurologic: Gross sensation G ross sensation is intact to light touch.? M usculoskeletal: Muscle Strength M uscle strength is 5/5 in regards to dorsiflexion, plantarflexion, inversion, and eversion in bilateral lower extremities. Pain on palpation N o pain to the left 2nd digit. ? Assessment: * Assessment: 1. I ngrowing nail - L60.0 (Primary) 2 . O ther hammer toe(s) (acquired), left foot - M20.42 3 . P ain in right toe(s) - M79.674 4 . E ncounter for other specified surgical aftercare - Z48.89 Plan: * Treatment: 2. O ther hammer toe(s) (acquired), left foot Notes: Resolved. * Procedure Codes: 9 9024 POSTOP FOLLOW-UP VISIT * Follow Up: p rn (Reason: If the right great toenail continues to bother her, recommend matrixectomy) * Billing Information: * Visit Code: * Procedure Codes: 27410 POSTOP FOLLOW-UP VISIT. * CORN MANAGER PRODUCTION Sign off status: Completed true * Provider: Anthony Mas DPM Date: 0 02/25/2024 Generated for Oscar albarran/Juma/Martitaitting on: 0 04/22/2024 11:46 AM CDT History and Physical Notes * HPI (History of Present Illness) Category Sub-Category Detail Notes Category Not es HPI New Complaint Established ebonie ent presents with a new complaint., Patient complains of an issue to right big toe lateral border possibly ingrown. , MA:YUN Follow Up Visit Patient presents for follow up visit for post operative on the left foot. , Patient states their problem is, improving. Patient states returning to shoes has gone good. , MA: YUN Examination Category Sub-Category Detail Notes Category Not es Dermatologic Skin findings: Skin is warm, dr y, supple with no breaks in the skin Ingrown Nail the lateral border o f the right hallux is incurvated. There is slight erythema, but no calor. No break in the skin, no drainage Neurologic Gross sensation Gross sensation is intact to light touch Vascular Dorsalis pedis pulse: 2/4, bilateral Edema: No edema, bilateral Capillary refill: less than 3 seconds Posterior tibial pulse: 2/4, bilateral Musculoskeletal Muscle Strength Muscle strength is 5/5 in regards to dorsiflexion, plantarflexion, inversion, and eversion in bilateral lower extremities Pain on palpation No pain to the left 2nd digit Constitutional Constitutional The patient is a wake, alert, well developed, well groomed and well nourished
--- OUTSIDE RECORDS SUMMARY | 2024-04-22 11:47 | XMS_ITS | Encounter Summary ---
Author Organization [facility] Facility Care Team Providers Care Equipment Processor Name Role Phone Parish Amanda Primary Care Provider Pérez Thakur MD Unavailable [phone] Parish Amanda Primary Care Provider Encounter Details Date Type Department Care Team (Latest Contact Info) Description 11/13/2016 Orders Only [facility] CLINCONV ProviderRomán MD [address] [place] [address] Social History Tobacco Use Types Packs/Day Years Used Date Smoking Tobacco: Never Assessed Comments Unknown Sex and Gender Information Value Date Recorded Sex Assigned at Not on file Legal Sex Female 10:44 AM 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 Historical Provider Final Res ult documented in this encounter Visit Diagnoses Not on filedocumented in this encounter Care Teams Equipment Processor Relationship Specialty Start Date End Date Parish Amanda PA PCP - General 09/16/18 10/28/23 Parish Amanda PA [address] [facility] [address] [place], [place] [phone] PCP - General Family Medicine 04/13/24 Pérez Thakur MD [address] [place] [phone] Consulting Physician General Surgery 03/27/21 documented as of this encounter
--- OUTSIDE RECORDS SUMMARY | 2024-04-22 11:48 | XMS_ITS ---
Author Organization [facility] Address [address] [place], [place] [phone] Care Team Providers Care Machine Coil Assembler Name Role Phone RUDY MAS Unavailable [phone] Parish Amanda Unavailable Unavailable REASON FOR VISIT Patient returns to the office 2.5 weeks s/p exostectomy of the 2nd digit. [facility] Medications Medication SIG (Take, Route, Frequency, Duration) Notes Start Date End Date Status Atenolol 25 MG Oral Tablet ORAL atenolol 25 MG Oral TabletOriginal Medicationatenolol 25 MG Oral Tablet *Reorder from [employer] for eRx and Interaction Alerts* 015 Active HYDROcodone-Acetaminop hen 5-325 MG 1 tablet as needed Orally every 6 hrs As needed for pain. 024 Active raloxifene hydrochloride 60 MG Oral Tablet [Evista] ORAL raloxifene hydrochloride 60 MG Oral Tablet [Evista]Original Medicationraloxifene hydrochloride 60 MG Oral Tablet [Evista] *Reorder from [employer] for eRx and Interaction Alerts* 015 Active hydrochlorothiazide 25 MG / lisinopril 20 MG Oral Tablet ORAL hydrochlorothiazide 25 MG / lisinopril 20 MG Oral TabletOriginal Medicationhydrochlorothiazide 25 MG / lisinopril 20 MG Oral Tablet *Reorder from [employer] for eRx and Interaction Alerts* 015 Active esomeprazole 40 MG Delayed Release Oral Capsule [Nexium] ORAL esomeprazole 40 MG Delayed Release Oral Capsule [Nexium]Original Medicationesomeprazole 40 MG Delayed Release Oral Capsule [Nexium] *Reorder from [employer] for eRx and Interaction Alerts* 015 Active atorvastatin 10 MG Oral Tablet [Lipitor] ORAL atorvastatin 10 MG Oral Tabl et [Lipitor]Original Medicationatorvastatin 10 MG Oral Tablet [Lipitor] *Reorder from [employer] for eRx and Interaction Alerts* 015 Active Encounters Encounter Location Date Provider Diagnosis [facility] [address] [place], [place] [phone] 12/31/2023 RUDY TG Osteophyte, left foot M25.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 Surgical Restriction Release: Patient may resume normal bathing. Return to normal shoes. Gradual return to activities as tolerated. Patient instructed to contact the office if any issues arise. 12/31/2023 Encounter for other specified surgical aftercare (ICD-10 - Z48.89) Plan Of Treatment Treatment Notes Assessment Notes Osteophyte, left foot Suture Removal: The sutures were removed. Surgical Restriction Release: Patient may resume normal bathing. Return to normal shoes. Gradual return to activities as tolerated. Patient instructed to contact the office if any issues arise. Next Appt Details Follow Up: 6 Weeks, Reason: Post-op visit, no xrays needed. See how return to shoes went. Progress Notes * ANSHUL GREGORIODOB:1945 (78 yo F)Acc No.[id number]:12/31/2023 Patient: ANSHUL GARZA Provider: Anthony Mas DPM :1945 A ge:78 Y S ex:Female Date:12/31/2023 Address:[address] [place] [address], [id number] Subjective: * Chief Complaints: * P atient returns to the office 2.5 weeks s/p exostectomy of the 2nd digit. She is doing well with no issues * HPI: H PI: Follow Up Visit P velasquez presents for follow up visit for post op., Patient states their problem is, improving. No pain or other issues with it., MA: jessica. * Medical History: * Surgical History: K [...] Medicationatenolol 25 MG Oral Tablet *Reorder from [employer] for eRx and Interaction Alerts*atorvastatin 10 MG Oral Tablet [Lipitor] ORAL , Notes to Pharmacist: atorvastatin 10 MG Oral Tablet [Lipitor]Original Medicationatorvastatin 10 MG Oral Tablet [Lipitor] *Reorder from [employer] for eRx and Interaction Alerts*esomeprazole 40 MG Delayed Release Oral Capsule [Nexium] ORAL , Notes to Pharmacist: esomeprazole 40 MG Delayed Release Oral Capsule [Nexium]Original Medicationesomeprazole 40 MG Delayed Release Oral Capsule [Nexium] *Reorder from [employer] for eRx and Interaction Alerts*hydrochlorothiazide 25 MG / lisinopril 20 MG Oral Tablet ORAL , Notes to Pharmacist: hydrochlorothiazide 25 MG / lisinopril 20 MG Oral TabletOriginal Medicationhydrochlorothiazide 25 MG / lisinopril 20 MG Oral Tablet *Reorder from [employer] for eRx and Interaction Alerts*raloxifene hydrochloride 60 MG Oral Tablet [Evista] ORAL , Notes to Pharmacist: raloxifene hydrochloride 60 MG Oral Tablet [Evista]Original Medicationraloxifene hydrochloride 60 MG Oral Tablet [Evista] *Reorder from [employer] for eRx and Interaction Alerts*HYDROcodone-Acetaminophen 5-325 MG Tablet 1 tablet as needed Orally every 6 hrs As needed for pain.Medication List reviewed and reconciled with the patientTaking Atenolol 25 MG Oral Tablet ORAL , Notes to Pharmacist: atenolol 25 MG Oral TabletOriginal Medicationatenolol 25 MG Oral Tablet *Reorder from [facility] for eRx and Interaction Alerts*Taking atorvastatin 10 MG Oral Tablet [Lipitor] ORAL , Notes to Pharmacist: atorvastatin 10 MG Oral Tablet [Lipitor]Original Medicationatorvastatin 10 MG Oral Tablet [Lipitor] *Reorder from [facility] for eRx and Interaction Alerts*Taking esomeprazole 40 MG Delayed Release Oral Capsule [Nexium] ORAL , Notes to Pharmacist: esomeprazole 40 MG Delayed Release Oral Capsule [Nexium]Original Medicationesomeprazole 40 MG Delayed Release Oral Capsule [Nexium] *Reorder from [facility] for eRx and Interaction Alerts*Taking hydrochlorothiazide 25 MG / lisinopril 20 MG Oral Tablet ORAL , Notes to Pharmacist: hydrochlorothiazide 25 MG / lisinopril 20 MG Oral TabletOriginal Medicationhydrochlorothiazide 25 MG / lisinopril 20 MG Oral Tablet *Reorder from [facility] for eRx and Interaction Alerts*Taking raloxifene hydrochloride 60 MG Oral Tablet [Evista] ORAL , Notes to Pharmacist: raloxifene hydrochloride 60 MG Oral Tablet [Evista]Original Medicationraloxifene hydrochloride 60 MG Oral Tablet [Evista] *Reorder from [facility] for eRx and Interaction Alerts*Taking HYDROcodone-Acetaminophen 5-325 MG Tablet 1 tablet as needed Orally every 6 hrs As needed for pain.Medication List reviewed and reconciled with the patient Objective: * Vitals: * Examination: D ermatologic: Skin findings: T he dressing is clean and dry. Sutures are in place. No erythema, calor, active drainage, or dehiscence noted. V ascular: Post Op E neeta is consistent for post-operative treatment course. N eurologic: Gross sensation G ross sensation is intact to light touch.? M usculoskeletal: Post Op N o calf pain noted. Assessment: * Assessment: 1. O steophyte, left foot - M25.775 (Primary) 2 . E ncounter for other specified surgical aftercare - Z48.89 Plan: * Treatment: * Procedure Codes: 9 9024 POSTOP FOLLOW-UP VISIT * Follow Up: 6 Weeks (Reason: Post-op visit, no xrays needed. See how return to shoes went.) * Billing Information: * Visit Code: * Procedure Codes: 15208 POSTOP FOLLOW-UP VISIT. * CTOR RELIGIOUS EDUCATION Sign off status: Completed true * Provider: Anthony Mas DPM Date: 03/01/2023 Generated for Oscar Raymond on: 0 04/22/2024 11:47 AM CDT History and Physical Notes * HPI (History of Present Illness) Category Sub-Category Detail Notes Category Not es HPI Follow Up Visit Patient presents for follow up visit for post op., Patient states their problem is, improving. No pain or other issues with it., MA: mf Examination Category Sub-Category Detail Notes Category Not [...]
== END 2024-04-22 10:12 | disposition home or self-care (01) ==
PROVIDERS: Anesthesiology; PCP Physician Assistant; Visit Provider Obstetrics & Gynecology Gynecology
DX: Z51.81 Encounter for therapeutic drug level monitoring (principal)
CPT/HCPCS: 36415; 80048

== ENCOUNTER 2024-04-26 00:17 | Day surgery (SDC) | payer MEDICARE, SELFPAY ==
[2024-04-07 15:35] VITALS: BMI 29.0
--- NOTE | 2024-04-07 15:51 | PC.NURSE ---
Report to the Outpatient Waiting Room, entrance under the green pavilion located off [facility], at time ___7:00AM____ on date ___04/26/24____. Planned Procedure Time: ___9:00AM .? Time changes happen often and if your time is changed the preop area will call you the afternoon before. - You and your visitor will be asked to self-screen and do not enter if you have any COVID symptoms. Please call surgeon if you need to reschedule. - A mask is optional within the hospital at this time. Patients may have clear liquids (water, carbonated beverages, clear teas, apple juice) until 3 hours prior to surgery (6:00AM) with a maximum of 20 ounces. - No food from midnight until time of surgery and no smoking, or chewing tobacco (or any form of nicotine). No chewing gum, candy or mints. Take only the following medications with a SIP of water on the morning of surgery: ___ATENOLOL DO NOT STOP ANY OF YOUR OTHER PRESCRIPTION MEDICATIONS PRIOR TO SURGERY EXCEPT THE FOLLOWING Hold all vitamins and supplements for 3 days per anesthesiologist.- LAST DOSE 04/22/24 Please no make-up, nail malay, hairspray, perfume, deodorant, or body powder the day of surgery.? No jewelry (including any body piercings) or valuables the day of surgery, leave them at home.? Please take a shower or bath the night before, or the morning of, surgery with an antibacterial soap.? Wear comfortable, loose fitting clothing.? - Jewelry must be removed prior to entering the operating room.? Rings and piercings that are not removed may be cut off. - The hospital will not accept responsibility for valuables.? - Please leave all valuables, including medications, at home the day of surgery. If you are going home after surgery, a licensed utility driver must drive you home.? - NO public transportation without another adult if you receive anesthesia. - We recommend that an adult stay with you for 24 hours following discharge. - We also recommend that you do not drive, make important decision, drink alcoholic beverages, or take any drugs that were not prescribed by your health care provider for at least 24 hours after your discharge time. Follow any additional instructions given to you from your surgeon. Telephone instructions given to ____PATIENT and asked if any additional questions and then verbalized understanding. Patient advised to call surgeon office or pre surgery nurse liaison [phone] if any additional questions.
--- OUTSIDE RECORDS SUMMARY | 2024-04-26 00:20 | XMS_ITS | Encounter Summary ---
Author Organization [facility] Address [address] [place] [address] Care Team Providers Care Passenger Service Supervisor Name Role Phone Parish Amanda Primary Care Provider [phone] Pérez Thakur MD Unavailable [phone] Parish Amanda Primary Care Provider [phone] Encounter Details Date Type Department Care Team (Late st Contact Info) Description 09/25/2012 Orders Only [facility] Information Management [address] [place] [address] Scanning, Provider Social History Tobacco Use Types Packs/Day Years Used Date Smoking Tobacco: Never Assessed Comments Unknown Sex and Gender Information Value Date Recorded Sex Assigned at Not on file Legal Sex Female 10:44 AM WET END 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
--- OUTSIDE RECORDS SUMMARY | 2024-04-26 00:20 | XMS_ITS | Encounter Summary ---
Author Organization [facility] Facility Care Team Providers Care Medicaid Service Coordinator Name Role Phone Parish Amanda Primary Care Provider [phone] Pérez Thakur MD Unavailable [phone] Parish Amanda Primary Care Provider [phone] Encounter Details Date Type Department Care Team (Latest Contact Info) Description 11/13/2016 Orders Only [facility] ProviderRomán MD [address] [place] [address] Social History Tobacco Use Types Packs/Day Years Used Date Smoking Tobacco: Never Assessed Comments Unknown Sex and Gender Information Value Date Recorded Sex Assigned at Not on file Legal Sex Female 10:44 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
--- OUTSIDE RECORDS SUMMARY | 2024-04-26 00:20 | XMS_ITS ---
Author Organization [facility] Address [address] [place], [place] [id number] Care Team Providers Care Monotype Keyboard Operator Name Role Phone RUDY MAS Unavailable [phone] Parish Amanda Unavailable Unavailable REASON FOR VISIT [...] 10 MG Oral Tablet [Lipitor] *Reorder from [facility] for eRx and Interaction Alerts* 015 Active Atenolol 25 MG Oral Tablet ORAL atenolol 25 MG Oral TabletOriginal Medicationatenolol 25 MG Oral Tablet *Reorder from [facility] for eRx and Interaction Alerts* 015 Active hydrochlorothiazide 25 MG / lisinopril 20 MG Oral Tablet ORAL hydrochlorothiazide 25 MG / lisinopril 20 MG Oral TabletOriginal Medicationhydrochlorothiazide 25 MG / lisinopril 20 MG Oral Tablet *Reorder from [facility] for eRx and Interaction Alerts* 015 Active esomeprazole 40 MG Delayed Release Oral Capsule [Nexium] ORAL esomeprazole 40 MG Delayed Release Oral Capsule [Nexium]Original Medicationesomeprazole 40 MG Delayed Release Oral Capsule [Nexium] *Reorder from [facility] for eRx and Interaction Alerts* 015 Active raloxifene hydrochloride 60 MG Oral Tablet [Evista] ORAL raloxifene hydrochloride 60 MG Oral Tablet [Evista]Original Medicationraloxifene hydrochloride 60 MG Oral Tablet [Evista] *Reorder from [facility] for eRx and Interaction Alerts* 015 Active Vital Signs Weight 170 lbs 02/25/2024 Weight-kg 77.11 kg 02/25/2024 Height 66.00 in 02/25/2024 Height-cm 167.64 cm 02/25/2024 BMI 27.44 kg/m2 02/25/2024 Encounters Encounter Location Date Provider Diagnosis [facility] [place] [id number] [address] [id number] 02/25/2024 RUDY SNOOK Ingrowing nail L60.0 ; [...] * ANSHUL GREGORIO JDOB:1945 (78 yo F)Acc No.[id number]:02/25/2024 Patient: ANSHUL GARZA Provider: Anthony Mas DPM :1945 A ge:78 Y S ex:Female Date:02/25/2024 Address:[address] [place] [address], [place]a BERMU[place], [id number] Subjective: * Chief Complaints: * T he [...] Medicationatenolol 25 MG Oral Tablet *Reorder from [facility] for eRx and Interaction Alerts*atorvastatin 10 MG Oral Tablet [Lipitor] ORAL , Notes to Pharmacist: atorvastatin 10 MG Oral Tablet [Lipitor]Original Medicationatorvastatin 10 MG Oral Tablet [Lipitor] *Reorder from [facility] for eRx and Interaction Alerts*esomeprazole 40 MG Delayed Release Oral Capsule [Nexium] ORAL , Notes to Pharmacist: esomeprazole 40 MG Delayed Release Oral Capsule [Nexium]Original Medicationesomeprazole 40 MG Delayed Release Oral Capsule [Nexium] *Reorder from [facility] for eRx and Interaction Alerts*hydrochlorothiazide 25 MG / lisinopril 20 MG Oral Tablet ORAL , Notes to Pharmacist: hydrochlorothiazide 25 MG / lisinopril 20 MG Oral TabletOriginal Medicationhydrochlorothiazide 25 MG / lisinopril 20 MG Oral Tablet *Reorder from [facility] for eRx and Interaction Alerts*raloxifene hydrochloride 60 MG Oral Tablet [Evista] ORAL , Notes to Pharmacist: raloxifene hydrochloride 60 MG Oral Tablet [Evista]Original Medicationraloxifene hydrochloride 60 MG Oral Tablet [Evista] *Reorder from [facility] for eRx and Interaction Alerts*HYDROcodone-Acetaminophen 5-325 MG Tablet 1 tablet as needed Orally every 6 hrs As needed for pain.Medication List reviewed and reconciled with the patientTaking Atenolol 25 MG Oral Tablet ORAL , Notes to Pharmacist: atenolol 25 MG Oral TabletOriginal Medicationatenolol 25 MG Oral Tablet *Reorder from [facility] for eRx and Interaction Alerts*Taking atorvastatin 10 MG Oral Tablet [Lipitor] ORAL , Notes to Pharmacist: atorvastatin 10 MG Oral Tablet [Lipitor]Original Medicationatorvastatin 10 MG Oral Tablet [Lipitor] *Reorder from [facility] for eRx and Interaction Alerts*Taking esomeprazole 40 MG Delayed Release Oral Capsule [Nexium] ORAL , Notes to Pharmacist: esomeprazole 40 MG Delayed Release Oral Capsule [Nexium]Original Medicationesomeprazole 40 MG Delayed Release Oral Capsule [Nexium] *Reorder from [facility] for eRx and Interaction Alerts*Taking hydrochlorothiazide 25 MG / lisinopril 20 MG Oral Tablet ORAL , Notes to Pharmacist: hydrochlorothiazide 25 MG / lisinopril 20 MG Oral TabletOriginal Medicationhydrochlorothiazide 25 MG / lisinopril 20 MG Oral Tablet *Reorder from [facility] for eRx and Interaction Alerts*Taking raloxifene hydrochloride 60 MG Oral Tablet [Evista] ORAL , Notes to Pharmacist: raloxifene hydrochloride 60 MG Oral Tablet [Evista]Original Medicationraloxifene hydrochloride 60 MG Oral Tablet [Evista] *Reorder from [facility] for eRx and Interaction Alerts*Taking HYDROcodone-Acetaminophen 5-325 [...] Information: * Visit Code: * Procedure Codes: 66250 POSTOP FOLLOW-UP VISIT. * NICAL ARTIST Sign off status: Completed true * Provider: Anthony Mas DPM Date: 0 02/25/2024 Generated for Oscar albarran/Juma/Martitaitting on: 0 04/26/2024 12:20 AM CDT History and Physical Notes * [...]
--- OUTSIDE RECORDS SUMMARY | 2024-04-26 00:20 | XMS_ITS | Encounter Summary ---
Author Organization [facility] Facility Care Team Providers Care Band And Cuff Cutter Name Role Phone Parish Amanda Primary Care Provider [phone] Pérez Thakur MD Unavailable [phone] Parish Amanda Primary Care Provider [phone] Encounter Details Date Type Department Care Team (Latest Contact Info) Description 07/28/2015 Orders Only [facility] ProviderRomán MD [address] [place] [address] Social History Tobacco Use Types Packs/Day Years Used Date Smoking Tobacco: Never Assessed Comments Unknown Sex and Gender Information Value Date Recorded Sex Assigned at Not on file Legal Sex Female 10:44 AM BUTANE COMPRESSOR OPERATOR Gender Identity Female 02/21/2021 1:01 PM BUTANE COMPRESSOR OPERATOR Sexual Orientation Not on file documented as [...] on filedocumented in this encounter Care Teams Band And Cuff Cutter Relationship Specialty Start Date End Date Parish Amanda PA PCP - General 09/16/18 10/28/23 Parish Amanda PA [address] [facility] [address] [place], [place] [phone] PCP - General Family Medicine 04/13/24 Pérez Thakur MD [address] [place] [phone] Consulting Physician General Surgery 03/27/21 documented as of this encounter
--- OUTSIDE RECORDS SUMMARY | 2024-04-26 00:20 | XMS_ITS | Encounter Summary ---
Author Organization [facility] Facility Care Team Providers Care Pot Lining Supervisor Name Role Phone Parish Amanda Primary Care Provider [phone] Pérez Thakur MD Unavailable [phone] Parish Amanda Primary Care Provider [phone] Encounter Details Date Type Department Care Team (Latest Contact Info) Description 03/11/2016 Orders Only [facility] ProviderRomán MD [address] [place] [address] Social History Tobacco Use Types Packs/Day Years Used Date Smoking Tobacco: Never Assessed Comments Unknown Sex and Gender Information Value Date Recorded Sex Assigned at Not on file Legal Sex Female 10:44 AM CERTIFIED PEST CONTROL TECHNICIAN Gender Identity Female 02/21/2021 1:01 PM CERTIFIED PEST CONTROL TECHNICIAN Sexual Orientation Not on file documented as of this encounter Plan of Treatment Not on file documented as of this encounter Procedures Procedure Name Priority Date/Time Associated Diagnosis Comments SCAN - LABS 03/11/2016 12:00 AM CERTIFIED PEST CONTROL TECHNICIAN documented in this encounter Results * SCAN - LABS (03/11/2016 12:00 AM CERTIFIED PEST CONTROL TECHNICIAN) Narrative 03/11/2016 12:00 AM CERTIFIED PEST CONTROL TECHNICIAN Ordered by an unspecified provider. Historical Provider Final Res ult documented in this encounter Visit Diagnoses Not on filedocumented in this encounter Care Teams Pot Lining Supervisor Relationship Specialty Start Date End Date Parish Amanda PA PCP - General 8/7/19 9/17/24 Parish Amanda PA [address] [facility] [address] [place] [address] PCP - General Family Medicine 04/13/24 Pérez Thakur MD [address] [place] [id number] Consulting Physician General Surgery 03/27/21 documented as of this encounter
--- OUTSIDE RECORDS SUMMARY | 2024-04-26 00:20 | XMS_ITS | Encounter Summary ---
Author Organization [facility] Facility Care Team Providers Care Voip Network Technician Name Role Phone Parish Amanda Primary Care Provider [phone] Pérez Thakur MD Unavailable [phone] Parish Amanda Primary Care Provider [phone] Encounter Details Date Type Department Care Team (Latest Contact Info) Description 03/02/2016 Orders Only [facility] ProviderRomán MD [address] [place], [place] [phone] Social History Tobacco Use Types Packs/Day Years Used Date Smoking Tobacco: Never Assessed Comments Unknown Sex and Gender Information Value Date Recorded Sex Assigned at Not on file Legal Sex Female 10:44 AM IDENTIFICATION OFFICER Gender Identity Female 02/21/2021 1:01 PM IDENTIFICATION OFFICER Sexual Orientation Not on file documented as of this encounter Plan of Treatment Not on file documented as of this encounter Procedures Procedure Name Priority Date/Time Associated Diagnosis Comments CARDIOLOGY REPORT 03/11/2016 12: 00 AM IDENTIFICATION OFFICER CARDIOLOGY REPORT 03/11/2016 12: 00 AM IDENTIFICATION OFFICER documented in this encounter Results * CARDIOLOGY REPORT (03/11/2016 12:00 AM IDENTIFICATION OFFICER) Anatomical Region Laterality Modality Other Narrative 03/11/2016 12:00 AM IDENTIFICATION OFFICER Ordered by an unspecified provider. Historical Provider [facility] Final Result * CARDIOLOGY REPORT (03/11/2016 12:00 AM IDENTIFICATION OFFICER) Anatomical Region Laterality Modality Other Narrative 03/11/2016 12:00 AM IDENTIFICATION OFFICER Ordered by an unspecified provider. us Historical Provider [facility] ROWE Final Result documented in this encounter Visit Diagnoses Not on filedocumented in this encounter Care Teams Voip Network Technician Relationship Specialty Start Date End Date Parish Amanda PA PCP - General 09/16/18 10/28/23 Parish Amanda PA [address] [facility] [address] [place], [place] [phone] PCP - General Family Medicine 04/13/24 Pérez Thakur MD [address] [place] [id number] Consulting Physician General Surgery 03/27/21 documented as of this encounter
--- OUTSIDE RECORDS SUMMARY | 2024-04-26 00:20 | XMS_ITS | Encounter Summary ---
Author Organization [facility] Care Team Providers Care Molder Meat Name Role Phone Parish Amanda Primary Care Provider [phone] Pérez Thakur MD Unavailable [phone] Parish Amanda Primary Care Provider [phone] Encounter Details Date Type Department Care Team (Latest Contact Info) Description 07/30/2015 Orders Only [facility] ProviderRomán MD [address] [place] [address] Social History Tobacco Use Types Packs/Day Years Used Date Smoking Tobacco: Never Assessed Comments Unknown Sex and Gender Information Value Date Recorded Sex Assigned at Not on file Legal Sex Female 10:44 AM AFTERSCHOOL Gender Identity Female 02/21/2021 1:01 PM AFTERSCHOOL Sexual Orientation Not on file documented as [...] on filedocumented in this encounter Care Teams Molder Meat Relationship Specialty Start Date End Date Parish Amanda PA PCP - General 09/16/18 10/28/23 Parish Amanda PA [address] [facility] 200 [place], [place] [phone] PCP - General Family Medicine 04/13/24 Pérez Thakur MD [address] [place] [phone] Consulting Physician General Surgery 03/27/21 documented as of this encounter
--- OUTSIDE RECORDS SUMMARY | 2024-04-26 00:21 | XMS_ITS | Referral Summary ---
Author Organization [facility] Address [address] [facility] [place] [address] Care Team Providers Care Studio Model Name Role Phone Amado High MD Unavailable [phone] Parish Amanda PA-C Primary Care Provider [phone] Source Comments [facility],non-owned Affiliates and Associated Physician Practices is amultiple site organization consisting of ambulatory clinics and hospital sitesin [place], [place], [place] and [place]. This disclosure is being madepursuant to the Care Everywhere program and may not contain all informatio navailable regarding this patient. Last updated 17.[facility] Allergies No known active allergies Medications * [...] Sex Assigned at Female 04/10/2020 5:07 PM AERODYNAMICIST Gender Identity Female 04/10/2020 5:07 PM AERODYNAMICIST Sexual Orientation Not on file Last Filed [...] of Treatment Not on file Care Teams Studio Model Relationship Specialty Start Date End Date Parish Amanda PA-C PCP - General 06/18/11 Amado High MD Orthopedic Surgery 06/18/11
--- OUTSIDE RECORDS SUMMARY | 2024-04-26 00:21 | XMS_ITS | Referral Summary ---
Author Organization [place] [id number] [facility] Address [address] [place] [address] Care Team Providers Care Shipping Helper Name Role Phone Pérez Thakur MD Unavailable [phone] Parish Amanda Primary Care Provider [phone] Encounters Date Type Department Care Team Description 04/13/2024 7:05 AM [facility] Office Building [address] [address] from Last 3 Months Allergies No known [...] 04/25/2020 Assessment & Plan (01/18/2021 10:34 AM MUCK MINER BLASTING): This was not an issue at this [...] exercise Assessment & Plan (01/16/2022 10:46 AM MUCK MINER BLASTING): CPM and exercise Assessment & Plan (07/17/2021 9:38 AM CDT): CPM and due for bone density Assessment & Plan (06/27/2021 11:06 AM CDT): Continue medications diet vitamin-D calcium and exercise Assessment & Plan (07/13/2020 1:38 PM CDT): This is currently controlled with medications continue to follow and exercise Assessment & Plan (01/12/2020 2:11 PM MUCK MINER BLASTING): Continue vitamin-D and calcium, she is scheduled for a bone density Assessment & Plan (07/13/2019 2:25 PM CDT): Vitamin D and calcium Palpitations 03/25/2016 Assessment & Plan (07/21/2023 6:21 AM CDT): This is a well controlled chronic condition we will continue to follow. Assessment & Plan (06/12/2023 10:48 AM CDT): Resolved with K+ use. Patient to follow up Dr. Salazar geophysical party chief on 07/17/2023. Patient to return to ER [...] follow Assessment & Plan (01/16/2022 10:46 AM MUCK MINER BLASTING): Well controlled Assessment & Plan (07/17/2021 9:37 AM CDT): Appears to have had a reaction possible to new medications, will hold and go back to atenolol until her f/u Assessment & Plan (06/27/2021 11:06 AM CDT): This is currently controlled with medications will continue to follow Assessment & Plan (01/18/2021 10:34 AM MUCK MINER BLASTING): This is currently well controlled Assessment & Plan (07/13/2020 1:38 PM CDT): This is well controlled medications patient does see Cardiology follow-up routine Assessment & Plan (01/12/2020 2:11 PM MUCK MINER BLASTING): These are currently well controlled Assessment & [...] routine Assessment & Plan (01/16/2022 10:45 AM MUCK MINER BLASTING): Images from the original note were not [...] routine Assessment & Plan (01/18/2021 10:34 AM MUCK MINER BLASTING): This is a stable chronic condition. Monitor [...] routine Assessment & Plan (01/12/2020 2:11 PM MUCK MINER BLASTING): Images from the original note were not [...] follow Assessment & Plan (01/16/2022 10:45 AM MUCK MINER BLASTING): Controlled, will follow, no si/hi Assessment & Plan (07/17/2021 9:38 AM CDT): Appears controlled, unsure if recent incident in ER was partially anxiety, will follow, well collected in clinic Assessment & Plan (06/27/2021 11:06 AM CDT): This is well controlled will continue to follow Assessment & Plan (01/18/2021 10:33 AM MUCK MINER BLASTING): This is no longer an issue Assessment & Plan (07/27/2020 3:21 PM CDT): Well controlled Assessment & Plan (07/13/2020 1:37 PM CDT): This is currently well controlled we will continue to follow Assessment & Plan (05/22/2020 10:31 AM CDT): This is currently controlled off meds, we will continue to follow Assessment & Plan (01/12/2020 2:10 PM MUCK MINER BLASTING): Patient is wanting to wean herself off [...] routine. Assessment & Plan (01/16/2022 10:46 AM MUCK MINER BLASTING): Patient is to continue present medications, work [...] routine. Assessment & Plan (01/18/2021 10:34 AM MUCK MINER BLASTING): Patient is to continue present medications, work [...] routine. Assessment & Plan (01/12/2020 2:11 PM MUCK MINER BLASTING): Patient is to continue present medications, work [...] understanding Assessment & Plan (01/16/2022 10:45 AM MUCK MINER BLASTING): Images from the original note were not [...] understanding Assessment & Plan (01/18/2021 10:34 AM MUCK MINER BLASTING): Images from the original note were not [...] understanding Assessment & Plan (01/12/2020 2:11 PM MUCK MINER BLASTING): Images from the original note were not [...] on file Legal Sex Female 10:44 AM MUCK MINER BLASTING Gender Identity Female 02/21/2021 1:01 PM MUCK MINER BLASTING Sexual Orientation Not on file Last Filed [...] on file Medical Devices Implanted Type Area Net Software Architect Device Identifier Shelf Expiration Date Model / Serial / Lot [employer] [id number] Surgisis Biodesign 10x7cm 4 Sheet Freeze Dried Graft Soft Tissue - [id number] - [id number] Implanted:Qty: 1 on 08/06/2017 by Naga Zelaya MD at [facility] Graft N/A: Stomach [employer] 04/24/2018 [id number] / [id number] / [id number] Joints Bilateral: Knee [employer] [id number] Progrip [id number] Self Fixate Monofilament Poultry Processing Supervisor M[employer] - [id number] Implanted:Qty: 1 on 03/27/2021 by Pérez Thakur MD at [facility] [employer] [id number] 09/10/2023 LP [id number] / / [id number] Procedures Procedure Name Priority Date/Time Associated Diagnosis Comments EGFR Routine 04/13/2024 7:17 AM MU[employer] MINER BLASTING COMPREHENSIVE METABOLIC PANEL Routine 04/13/2024 7:17 AM [employer]ING LIPID PANEL Routine 04/13/2024 7:17 AM MU[employer]ER BLASTING DEXA AXIAL SKELETON BONE DENSITY 1 OR MORE SITES Schedule Routine, Read Routine (OP Routine) 07/10/2022 8:05 AM CDT Asymptomatic menopausal state from Last 3 Months or Most Recently Relevant to Health Maintenance Results * eGFR (04/13/2024 7:17 AM MUCK MINER BLASTING) eGFR 87 >=60 mL/min/1. 73 m2 Comment: [...] was last reviewed 2020. Testing performed by: [address] [address] Blood 04/13/2024 7:17 AM MUCK MINER BLASTING 04/13/2024 9:44 AM MUCK MINER BLASTING us Lavelle Beasley MD LAB BLOOD ORDERABLES Fi nal Result [facility] [address] [facility] Department [place] [address] * Lipid panel (04/13/2024 7:17 AM MUCK MINER BLASTING) Cholesterol 177 30 - 199 mg/dL Comment: [...] last revised on 2017. Testing performed by: [address] [address] Triglycerides 104 <=149 mg/dL AFSANEH Comment: Interpretive [...] last revised on 2017. Testing performed by: [address] [address] HDL 62 >=40 mg/dL AFS[facility]H Comment: Interpretive [...] last revised on 2017. Testing performed by: [address] [address] LDL, calculated 96 <=129 mg/dL AFSANEH Comment: [...] last revised on 2023. Testing performed by: [address] [address] Non-HDL Cholesterol 115 mg/dL AFSANEH Comment: Interpretive [...] last revised on 2017. Testing performed by: [address] [address] Chol/HDL ratio 3 [facility]FS[facility] Comment:Testing performed by : [address] [address] Blood 04/13/2024 7:17 AM MUCK MINER BLASTING 04/13/2024 9:44 AM MUCK MINER BLASTING us Lavelle Beasley MD LAB BLOOD ORDERABLES Fi nal Result [facility] Department [place] [address] * Comprehensive metabolic panel (04/13/2024 7:17 AM MUCK MINER BLASTING) Sodium 141 135 - 145 mmol/L Comment:Testing performed by : [address] [address] Potassium, pl 4.0 3.3 - 4.9 mmol/L AFSANEH Comment:Testing performed by : [address] [address] Chloride 105 97 - 110 mmol/L AFSANEH Comment:Testing performed by : [address] [address] CO2 26 22 - 32 mmol/L AFSANEH Comment:Testing performed by : [address] [address] Anion gap 10 2 - 15 mmol/L AFSANEH Comment:Testing performed by : [address] [address] BUN 13 6 - 25 mg/dL [facility]FS[facility] Comment:Testing performed by : [address] [address] Creatinine 0.70 0.60 - 1.10 mg/dL [facility]FS[facility]H Comment:Testing performed by : [address] [address] Glucose 90 70 - 199 mg/dL AFSANEH [...] was last revised 2022. Testing performed by: [address] [address] Calcium 10.2 8.5 - 10.3 mg/dL [facility]FS[facility]H Comment:Testing performed by : [address] [address] Bilirubin, total 1.1 0.1 - 1.2 mg/dL [facility] Comment:Testing performed by : [address] [address] Protein, pl 7.0 6.5 - 8.5 g/dL [facility] Comment:Testing performed by : [address] [address] Albumin 4.0 3.5 - 5.0 g/dL [facility]FS[facility] Comment:Testing performed by : [address] [address] Alk phos 81 40 - 130 Units/L [facility]FS[facility] Comment:Testing performed by : [address] [address] ALT 14 7 - 45 Units/L [facility]FS[facility] Comment:Testing performed by : [address] [address] AST 22 10 - 45 Units/L [facility]FS[facility] Comment:Testing performed by : [address] [address] Blood 04/13/2024 7:17 AM MUCK MINER BLASTING 04/13/2024 9:44 AM MUCK MINER BLASTING us Lavelle Beasley MD LAB BLOOD ORDERABLES Fi nal Result [facility] [address] [facility] Department [place] [address] * Dexa Axial Skeleton Bone Density 1 or 2 Site (07/10/2022 8:05 AM CDT) Anatomical Region Laterality Modality Body N/A Mammography 07/10/2022 9:06 PM CDT Narrative 07/10/2022 9:08 PM CDT EXAM DESCRIPTION: DEXA AXIAL SKELETON BONE DENSITY 1 OR MORE SITES REASON FOR STUDY: 76 y/o year old F with given history of screening. Postmenopausal Net Software Architect/Model: gDecide A (S/N [id number]) CLINICAL INFORMATION: Current height: 63.5 inches Maximum [...] Tyler Levy M.D. MF: ROSALIE Report ID: [id number] Reading Location: [id number] [facility] Note Tyler Levy MD - 07/10/2022 EXAM DESCRIPTION: DEXA AXIAL SKELETON BONE DENSITY 1 OR MORE SITES REASON FOR STUDY: 76 y/o year old F with given history of screening. Postmenopausal Net Software Architect/Model: [employer] Horizon A (S/N [id number]) CLINICAL INFORMATION: Current height: 63.5 inches Maximum [...] Tyler Levy M.D. MF: ROSALIE Report ID: [id number] Reading Location: [id number] Katarina Nguyen MD IMG DXA PROCEDURES Final Result from Last 3 Months or Most Recently Relevant to Health Maintenance Insurance AETNA MEDICARE [facility] MEDICARE AETNA MEDICARE Advance Directives For more information, please contact: [phone] * Full Code (Latest Code Status on File) Date Activated Date Inactivated Comments 08/13/2017 10:42 AM 08/14/2017 12:45 PM * Full Code Date Activated Date Inactivated Comments 08/06/2017 3:28 PM 08/08/2017 4:15 PM Care Teams Shipping Helper Relationship Specialty Start Date End Date Parish Amanda PA [address] [facility] [address] [place], [place] [address] PCP - General Family Medicine 04/13/24 Pérez Thakur MD [address] [facility] [address] [place], [place] [address] Consulting Physician General Surgery 03/27/21
--- OUTSIDE RECORDS SUMMARY | 2024-04-26 00:21 | XMS_ITS | Continuity of Care Document ---
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 Role Phone Davis Bergman MD, FACS Unavailable Unavailab le Allergies, Adverse Reactions, Alerts Substance Reaction Status Criticality No Known Allergies Active No Inform ation Medications Medication Instructions Dosage Effective Dates (start - stop) Status Comments Lipitor 10 mg tablet 10 mg TABLET - Active Evista 60 mg tablet 60 mg TABLET - Active lisinopril 20 mg-hydrochlorothiazid e 25 mg tablet 20 mg-25 mg TABLET - Active atenolol 25 mg tablet 25 mg TABLET - Activ e atenolol 50 mg tablet take 1 tablet by o ral route every day 50 MG - Active Procedures Procedure Date After Cataract Laser Surgery No Charge Refraction After Cataract Laser Surgery No Charge Refraction Office/outpatient Visit, Est Remove Cataract, Insert Lens IOLMaster-Professional Remove Cataract, Insert Lens IOLMaster-Technical SCODI, Retina No Charge Orbscan IOLMaster-Professional No Charge Refraction Office/outpatient Visit, New Advance Directives Directive Yes / No Effective Date File Name No Information Encounters Encounter Description Practice Location Reason(s) For Visit Diagnoses Date Provider Providers Copied on Encounter [facility], [address] [place] [address] [address], [place], [place], [id number], [place] tel:[phone] [place] 2 week co manage YAG capsulotomy postop visit (chief complaint) No Information 4 Pacheco Davis. [address] [place] [address] [employer], [address], [place], [place], [address], [place]. tel:[phone] [facility], [address] [place] [address] [address], [place], [place], [address], [place] tel:[phone] [facility] YAG Evaluation (chief complaint) Other secondary cataract, right eye 4 Pacheco Davis. [address] [place] [address] [facility], [address], [place], [place], [address], [place]. tel:[phone] Astrid Ibarra MD.Referring Provider: Enrico Servin OD, 1 [facility], [place], [address]. tel:[phone] Office/outpa tient Visit, Est [facility], [address] [place] [address] [address], [place], [place], [address], [place] tel:[phone] [facility] yag pc OS (chief complaint) Other secondary cataract, left eye 4 Pacheco Davis. [address] [place] [address] [employer], [address], [place], [place], [address], [place]. tel:[phone] Astrid Ibarra MD.Referring Provider: Enrico Servin OD, 1 [facility], [place], [address]. tel:[phone] [facility], [address] [place] [address] [address], [place], [place], [address], [place] tel:[phone] [facility] No Information 2 [place]. [address] [place] [address] [employer], [address], [place], [place], [address], [place]. tel:[phone] Referring Provider: Enrico Servin OD, 1 [place], [address]. tel:[phone] [facility], [address] [place] [address] [address], [place], [place], [address], tel:[phone] [place] No Information Aug- 0 2 Pacheco Davis. [address] [place], [place] [address]cre[address] [facility], [address], [place], [place], [address], . tel:[phone] Referring Provider: Enrico Servin OD, 1 [facility], [place], [address]. tel:[phone] [facility], [address] [place] [address] [address], [place], [place], [address], tel:[phone] [facility] No Information Jul-2 1 2 Pacheco Davis. [address] [place], [place] [address]crest [employer], [address], [place], [place], [address], . tel:[phone] Referring Provider: Enrico Servin OD, 1 [facility], [place], [address]. tel:[phone] [facility], [address] [place] [address] [address], [place], [place], [address], tel:[phone] [place] Testing only (chief complaint) No Information Jul- 2 Pacheco Davis. [address] [place], [place] [address], [address], [place], [place], [address], [place]. tel:[phone] Referring Provider: Enrico Servin OD, 1 [facility], [place], [address]. tel:[phone] [facility], [address] [place] [address] [address], [place], [place], [address], tel:[phone] [place] No Information Jul-2 1 2 Pacheco Davis. [address] [place], [place] [address]crest [facility], [address], [place], [place], [address], . tel:[phone] Referring Provider: Enrico Servin OD, 1 [facility], [place], [address]. tel:[phone] [facility] Hospital[facility] Iagnosis [facility], [facility] [email or web address] [facility] [address], [place], [place], [address], tel:[phone] No Information 2 [place]. [facility] [employer], [address], [place], [place], [address], [place]. tel:[phone] Specialist: Astrid Ibarra MD, [address], [place], [address]. tel:[phone] Office/outpa tient Visit, [facility], [address] [place] [address] [address], [place], [place], [address], tel:[phone] [facility] Cataract evaluation (chief complaint) Combined forms of age-related cataract, bilateralHis tory of retinal tearRetinal scar of left eye June- 2 [place]. [facility] [employer], [address], [place], [place], [address], [place]. tel:[phone] Specialist: Astrid Ibarra MD, [address], [place], [address]. tel:[phone] ist: Astrid Ibarra MD, [address], [place], [address]. tel:[phone] ng Provider: Enrico Servin OD, 1 [facility], [place], [address]. tel:[phone] [facility], [address] [email or web address] [facility] [address], [place], [place], [address], [place] tel:[phone] SEC [place] No Information 2 [place]. [address], [address], [place], [place], [address], . tel:[phone] Family History Family Member Type Diagnosis Age At Onset No Information Payers Payer name Insurance type Covered alliance party ID Authoriza tion(s) Aetna Mdcr Jordon Cadena Prime [id number] Social History Type Description Quantity Date Captured Comments Alcohol Use Details No Caffeine Use Details Tobacco Use Status Current non-smoker Smoking Status Never smoker Non-Smoking Tobacco Use Details : No Details Available : No Details Available Sex Female Chief Complaint And Reason For Visit From encounter dated '07/28/2023 08:51'. 2 week co manage YAG capsulotomy postop visit (chief complaint). Description: The 77 year old patient presents for evaluation of 2 week co manage YAG capsulotomy postop visit in the right eye. Reason For Referral Reason For Referral No Information Plan Of Treatment Date Type Action Status Patient Education Cataract Surgery: What to Expect at Home completed History Of Present Illness Encounter Date Complaint History Of Prese nt Illness 2 week co manage YAG capsulotomy postop visit The 77 year old patient presents for evaluation of 2 week co manage YAG capsulotomy postop visit in the right eye. YAG Evaluation The 77 year old patient presents for evaluation of YAG Evaluation in the right eye. Pt states that starting about a year ago they noticed that they were having more trouble reading small print even with glasses, pt complains of not being able to read road signs, and pt complains of headlights at night and bright rehab consultant during the day bothering them as well. yag pc OS The 77 year old patient presents for a yag pc OS per Dr. Servin. Patient states she is monovision with OD being for close up. Patient is bothered by glare around lights at night x 6 months. Patient has a hard time seeing road signs. Patient is having a harder time reading small print. Testing only The 75 year old patient presents for evaluation of Testing only in the right eye and left eye. Pt presents for IOL Master, Keratograph and OCT Macula. Cataract evaluation The 75 year old patient presents for evaluation of Cataract evaluation in the right eye and left eye. 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 Pt sees Dr Ibarra for monitoring of OS. Pt Previously wore RGP's OU OD NV and OS DV. Pt would like MV IOL with OD target at -2.75 for near. Pt states it's difficult to drive at night due to headlight glare, having to get closer to street signs to see them clearly, and it's difficult to see small print. DVA and NVA gradual decrease x several mos. Pt is getting more sensitive to the sun. Functional Status Date Functional Assessmen t No Information Instructions Date Instruction Additional Infor wale Impression/Plan Related to Other secondary cataract, right eye Impression/Plan Related to Other secondary cataract, left eye Impression/Plan Assessments Type Assessment Date No Information Patient Care Teams Name Effective Dates (start - stop) Status Members No Information
--- OUTSIDE RECORDS SUMMARY | 2024-04-26 00:21 | XMS_ITS | Data Portability ---
Author Organization SOFIA Clarissa BAÑUELOS Address [address] [facility] [place] [address] Care Team Providers Care Lawn And Garden Technician Name Role Phone FRANCESCO RUIZ Primary Care Provider [phone] Assessment Encounter Date Assessment Date Assessment LastModified [...] available Lab lipid panel, serum 2024 025 [facility], [address] [place], [address], 04/19/2024 12:19:00 CMP, serum or plasma 2024 025 [facility], [address] [place], [address], 04/19/2024 12:19:00 lipid panel, serum 2023 025 [facility], [address] [place], [address], 04/13/2024 14:02:32 CMP, serum or plasma 2023 025 [facility], [address] [place], [address], 04/12/2024 09:02:21 Referral None record ed. Procedures None record ed. Surgeries None record ed. Imaging electr ocardi ogram 2024 025 intersch In-Office Order, Internal Use Only DO Not Attach Compendium DO Not Attach Compendium, Do Not Delete/merge, [id number] 03/08/2024 16:16:19 Medication Orders atenol ol 25 mg tablet 2024 025 [id number] [address] [place], [id number], 03/18/2024 12:14:03 Patient TargetsNo targets recorded. Patient Instructions Encounter Date Encounter Id Patient Instructions Last Modified By Organization Details Last Modified Time 03/03/2024 [id number] A healthy lifestyle: care instructions [email or web address] Not available 03/03/2024 17:29:44 03/18/2024 [id number] A healthy lifestyle: care instructions [email or web address] Not available 03/18/2024 12:14:03 04/19/2024 [id number] A healthy lifestyle: care instructions [email or web address] Not available 04/19/2024 12:19:00 Reason for Referral None Reported. Results Created Date Observation Date Name Description Value Unit Range Abnormal Flag Note LastModifiedBy Organization Detail LastModifiedTime 10/20/19 24 10/20/2023 COMPR EHENS NIKKI METAB OLIC PANEL sodium 137 mmol/ L 134-14 4 normal Not Available [facility] (Lab) [address] [place], [address], 10/20/2023 22:03:18 10/20/19 24 10/20/2023 COMPR EHENS NIKKI METAB OLIC PANEL potassium 4.1 mmol/ L 3.5-5. 2 normal Not Available [facility] (Lab) [address] [place], [address], 10/20/2023 22:03:18 10/20/19 24 10/20/2023 COMPR EHENS NIKKI METAB OLIC PANEL chloride 102 mmol/ L 96-106 normal Not Available [facility] (Lab) [address] [place], [address], 10/20/2023 22:03:18 10/20/19 24 10/20/2023 COMPR EHENS NIKKI METAB OLIC PANEL carbon dioxide 28 mmol/ L 20-29 normal Not Available [facility] (Lab) [address] [place], [address], 10/20/2023 22:03:18 10/20/19 24 10/20/2023 COMPR EHENS NIKKI METAB OLIC PANEL anion gap 12.0 mmol/ L Not Available [facility] (Lab) [address] [place], [address], 10/20/2023 22:03:18 10/20/19 24 10/20/2023 COMPR EHENS NIKKI METAB OLIC PANEL blood urea nitrogen 12 mg/dL 8-27 normal Not Available [facility] (Lab) [address] [place], [address], 10/20/2023 22:03:18 10/20/19 24 10/20/2023 COMPR EHENS NIKKI METAB OLIC PANEL creatinine 0.59 mg/dL 0.76-1 .27 low Not Available [facility] (Lab) [address] [place], [address], 10/20/2023 22:03:18 10/20/19 24 10/20/2023 COMPR EHENS NIKKI METAB OLIC PANEL glomerular filtration rate 91 mL/mi n/1 Not Available [facility] (Lab) [address] [place], [address], 10/20/2023 22:03:18 10/20/19 24 10/20/2023 COMPR EHENS NIKKI METAB OLIC PANEL BUN creatinine ratio 21 10-28 normal Not Available [facility] (Lab) [address], [place], [address], 10/20/2023 22:03:18 10/20/19 24 10/20/2023 COMPR EHENS NIKKI METAB OLIC PANEL glucose 92 mg/dL 70-99 normal Not Available [facility] (Lab) [address] [place], [address], 10/20/2023 22:03:18 10/20/19 24 10/20/2023 COMPR EHENS NIKKI METAB OLIC PANEL osmolality calculated 273 280-30 1 low Not Available [facility] (Lab) [address] [place], [address], 10/20/2023 22:03:18 10/20/19 24 10/20/2023 COMPR EHENS NIKKI METAB OLIC PANEL calcium 10.0 mg/dL 8.7-10 .3 normal Not Available [facility] (Lab) [address] [place], [address], 10/20/2023 22:03:18 10/20/19 24 10/20/2023 COMPR EHENS NIKKI METAB OLIC PANEL bilirubin total 1.5 mg/dL 0.0-1. 2 high Not Available [facility] (Lab) [address] [place], [address], 10/20/2023 22:03:18 10/20/19 24 10/20/2023 COMPR EHENS NIKKI METAB OLIC PANEL aspartate amino transferase 22 IU/L 0-40 normal Not Available [facility] (Lab) [address], [place], [address], 10/20/2023 22:03:18 10/20/19 24 10/20/2023 COMPR EHENS NIKKI METAB OLIC PANEL alanine aminotransfe rase 12 IU/L 0-32 normal Not Available [facility] (Lab) [address], [place], [address], 10/20/2023 22:03:18 10/20/19 24 10/20/2023 COMPR EHENS NIKKI METAB OLIC PANEL total protein 6.7 g/dL 6.0-8. 5 normal Not Available [facility] (Lab) [address] [place], [address], 10/20/2023 22:03:18 10/20/19 24 10/20/2023 COMPR EHENS NIKKI METAB OLIC PANEL albumin level 4.1 g/dL 3.8-4. 8 normal Not Available [facility] (Lab) [address], [place], [address], 10/20/2023 22:03:18 10/20/19 24 10/20/2023 COMPR EHENS NIKKI METAB OLIC PANEL globulin 2.6 g/dL 1.5-4. 5 normal Not Available [facility] (Lab) [address] [place], [address], 10/20/2023 22:03:18 10/20/19 24 10/20/2023 COMPR EHENS NIKKI METAB OLIC PANEL albumin globulin ratio 2.0 1.2-2. 2 normal Not Available [facility] (Lab) [address] [place], [address], 10/20/2023 22:03:18 10/20/19 24 10/20/2023 COMPR EHENS NIKKI METAB OLIC PANEL alkaline phosphatase 68 IU/L 44-121 normal Not Available [facility] (Lab) [address] [place], [address], 10/20/2023 22:03:18 10/20/19 24 10/20/2023 LIPID PANEL triglyceride s 116 mg/dL 0-149 normal Not Available [facility] (Lab) [address] [place], [address], 10/20/2023 22:03:18 10/20/19 24 10/20/2023 LIPID PANEL cholesterol 178 mg/dL 100-19 9 normal Not Available [facility] (Lab) [address] [place], [address], 10/20/2023 22:03:18 10/20/19 24 10/20/2023 LIPID PANEL LDL cholesterol 97 mg/dL 0-99 normal Not Available [facility] (Lab) [address] [place], [address], 10/20/2023 22:03:18 10/20/19 24 10/20/2023 LIPID PANEL VLDL cholesterol (calc) 23 mg/dL 5-40 normal Not Available [facility] (Lab) [address], [place], [address], 10/20/2023 22:03:18 10/20/19 24 10/20/2023 LIPID PANEL HDL cholesterol 66 mg/dL 40-999 normal Not Available [facility] (Lab) [address] [place], [address], 10/20/2023 22:03:18 10/20/19 24 10/20/2023 LIPID PANEL LDL HDL ratio 1.5 0-3.2 normal Not Available [facility] (Lab) [address], [place], [address], 10/20/2023 22:03:18 10/20/19 24 10/20/2023 LIPID PANEL chol HDL ratio 3.0 mg/dL 0-4.4 normal Not Available [facility] (Lab) [address], [place], [address], 10/20/2023 22:03:18 03/03/19 25 03/03/2024 elect [facility] diogr am No observ ation record ed. SAMIR In-Office Order Internal Use Only DO Not Attach Compendium DO Not Attach Compendium, Do Not Delete/merge, [id number] 03/03/2024 15:29:10 03/03/19 25 03/03/2024 elect rocar diogr am No observ ation record ed. SAMIR In-Office Order Internal Use Only DO Not Attach Compendium DO Not Attach Compendium, Do Not Delete/merge, [id number] 03/03/2024 18:08:22 Result Notes None recorded. Problems Name Problem SNOMED Code Status Onset Date Resolution Date Notes Provider Name and Address Organization Details Recorded Time Palpitations 50125371 Active 2023 Stefany Meyer [place], [place] [facility] 4 15:19:44 Hyperlipidemia 95564780 Active 2023 Stefany [place] [facility] 4 15:19:45 Essential hypertension 75607819 Active 2023 Stefany [place] [facility] 4 15:19:46 Hypokalemia 19851925 Active 2023 Stefany [place] [facility] 4 15:19:47 Osteoporosis 98855779 Active 2023 GABINO Guzman Attn: [employer] [place], [address], [place] [facility] 4 11:04:20 Gastroesophage al reflux disease without esophagitis 599236173 Active 2023 GABINO Guzman Attn: [facility] [place], [address], [place] [facility] 4 11:04:24 Generalized anxiety disorder 06011411 Active 2023 GABINO Guzman Attn: [facility],[address], [place], [address], [facility] 11:04:26 Adult health examination Active 2023 GABINO Guzman Attn: [facility],[address], [place], [address], [facility] 11:04:28 Problem Notes None recorded. Procedures Surgical History Date Name Laterality Status Provider Name and Address Organization Details Recorded Time hernia repair completed Stefany Meyer MA [facility] 07/15/2023 12:25:41 tonsillectomy completed Stefany Meyer MA [facility] 07/15/2023 12:25:48 biopsy of breast completed Stefany Meyer MA [facility] 07/15/2023 12:25:56 Imaging Results Imaging Date Name Status LastModified by Organization Details LastModified Time 03/03/2024 electrocardiogram completed SAMIR In-Offi ce Order Internal Use Only DO Not Attach Compendium DO Not Attach Compendium, Do Not Delete/merge, [id number] 03/03/2024 15:29:10 03/03/2024 electrocardiogram completed SAMIR In-Offi ce Order Internal Use Only DO Not Attach Compendium DO Not Attach Compendium, Do Not Delete/merge, [id number] 03/03/2024 18:08:22 Procedure Notes None recorded. Medical [...] Updated DateTime 4 165.1 cm 29.3 kg/m2 82865.6 2 g 55 /min 98 % 98 % Stefany Meyer MA [facility] 11:04:02 Date Recorded Systolic blood pressure Diastolic blood pressure Provider Name and Address Organization Details Last Updated DateTime 10/24/2023 134 mm[Hg] 76 mm[Hg] Lavelle Beasley MD Attn: [address] [place], [address], [facility] 10/24/2023 11:36:01 Date Recorded Body height Body mass index (BMI) Body weight Oxygen saturation Oxygen saturation in Arterial blood by Pulse oximetry Heart rate Provider Name and Address Organization Details Last Updated DateTime 4 165.1 cm 29.7 kg/m2 56486.2 4 g 98 % 98 % 58 /min Sima Mora MA [facility] 12:11:18 Date Recorded Systolic blood pressure Diastolic blood pressure Provider Name and Address Organization Details Last Updated DateTime 11/13/2023 120 mm[Hg] 70 mm[Hg] GABINO Guzman Attn: [address] [place], [address], [facility] 11/13/2023 12:28:23 Date Recorded Body height Body mass index (BMI) Body weight Oxygen saturation Oxygen saturation in Arterial blood by Pulse oximetry Heart rate Provider Name and Address Organization Details Last Updated DateTime 5 165.1 cm 30.1 kg/m2 08040.8 6 g 98 % 98 % 93 /min Stefany Meyer MA [facility] 14:52:25 Date Recorded Systolic blood pressure Diastolic blood pressure Provider Name and Address Organization Details Last Updated DateTime 03/03/2024 140 mm[Hg] 80 mm[Hg] Lavelle Beasley MD Attn: Account[address] [place], [address], [facility] 03/03/2024 15:15:18 Date Recorded Body height Body mass index (BMI) Body weight Oxygen saturation Oxygen saturation in Arterial blood by Pulse oximetry Heart rate Systolic blood pressure Diastolic blood pressure Provider Name and Address Organization Details Last Updated DateTime 5 165.1 cm 29.7 kg/m2 18689.1 6 g 96 % 96 % 60 /min 140 mm[Hg] 84 mm[Hg] Stefany Meyer MA [facility] 5 11:59:33 Date Recorded Body height Body mass index (BMI) Body weight Oxygen saturation Oxygen saturation in Arterial blood by Pulse oximetry Heart rate Systolic blood pressure Diastolic blood pressure Provider Name and Address Organization Details Last Updated DateTime 5 165.1 cm 30.3 kg/m2 82289.5 3 g 94 % 94 % 60 /min 130 mm[Hg] 84 mm[Hg] Stefany Meyer MA [facility] 5 11:33:02 Social History Question Answer Notes LastModified by Organizat ion Details LastModified Time Tobacco Smoking Status Never Smoker Stefany Meyer MA null, [facility] 07/16/2023 10:13:09 What Is Your Level Of [...] SNOMED-CT Code Diagnosis ICD10 Code Diagnosis Note [id number] Lavelle Beasley MD [facility] [place] [facility] [address] [place] [address] 07/16/2023 09:50:33 07/17/2023 15:40:50 Palpitations 13659919 R00.2 Hyperlipidemia 94495346 E78.5 Essential hypertension 14401600 I10 Hypokalemia 94039256 E87 .6 [id number] Lavelle Beasley MD [facility] [place] [facility] [address] [place] [address] 10/24/2023 10:51:05 10/27/2023 07:39:02 Palpitations 03495646 R00.2 Hyperlipidemia 29307542 E78.5 Essential hypertension 00147137 I10 [id number] GABINO Guzman [facility] [place] [place] [address] [facility] [address] [place] [address] 11/13/2023 12:04:39 11/18/2023 08:58:39 Adult health examination 484692005 Z00.00 Healthy diet and exercise, HCM as discussed Generalize d anxiety disorder 18704835 F41.1 - The pharmacolo gic and non-pharma [...] provider about counseling options - Sometimes antidepres ocurtney medication s can make suicidal thoughts worse. If you are experienci ng these thoughts you should report to the ER immediatel y - You can also call the suicide hotline at [phone]- [phone] Essential hypertension 77659518 I10 Take meds as ordered. Decrease caffeine and salt intake, work on diet and weight loss. Aerobic exercise 4 times per week for 30 min. Call for elevated blood pressures. Gastroesop hageal reflux disease without esophagitis 214667728 K21.9 1 .Avoid lying flat 3 to [...] diet and exercise. 10. Stop smoking. Hyperlipidemia 86107654 E78.5 Increase physical activity, heart healthy diet, [...] sure to take it every day. Osteoporosis 73674207 M8 1.0 This is a stable chronic condition continue vitamin-D calcium and exercise Palpitations 45434883 R0 0.2 This is a stable chronic condition the patient is asymptomat ic we will continue to follow continue follow up with Cardiology Pain in left foot 058081 0523 44239 M79.672 This is just to doing additional correction to a previous surgery she recently had there has been no change in her health status her cardiologi is aware the procedures only supposed to last a few minutes patient is cleared paperwork has been signed [id number] Lavelle Beasley MD [facility] [employer] [facility] [place] [address] [place] [address] [address] [place] [address] 03/03/2024 14:43:40 03/08/2024 16:16:18 Palpitations 98313227 R00.2 Hyperlipidemia 28056202 E78.5 Essential hypertension 12279041 I10 Obesity 157704949 E66.9 [id number] Lavelle Beasley MD [facility] [place] [facility] [address] [place] [address] 03/18/2024 11:46:31 03/19/2024 14:23:54 Palpitations 21949060 R00.2 Hyperlipidemia 25099350 E78.5 Essential hypertension 19202127 I10 Overweight 924890036 E66 .3 [id number] Lavelle MD Gale [facility] [place] [facility] [address] [place] [address] 04/19/2024 11:16:36 04/20/2024 09:19:15 Palpitations 70146588 R00.2 Hyperlipidemia 61079483 E78.5 Essential hypertension 14803601 I10 Obesity 638306314 E66.9 Health Concerns Section Related Observation LastModified by Organization Detai ls LastModified Time None Recorded Concern Status LastModified by Organization Details LastModified Time None Recorded Advance Directives Directive None Recorded Payers Encounter Date Sequence Insurance Name Policy Number Policy Pantoja Covered Member ID Pantoja Member ID Guarantor Name 10/24/2023 1 [employer] (MEDICARE REPLACEMENT PPO) [id number] Joanna Loco Jen [id number] Joanna Li 11/13/2023 1 [employer] (MEDICARE REPLACEMENT PPO) [id number] Joanna Willinghamce [id number] Joanna Li 03/03/2024 1 [employer] (MEDICARE REPLACEMENT PPO) [id number] Joanna Loco Jen [id number] Joanna Li 03/18/2024 1 [employer] (MEDICARE REPLACEMENT PPO) [id number] Joanna Loco Jen [id number] Joanna Li 04/19/2024 1 [employer] (MEDICARE REPLACEMENT PPO) [id number] Joanna Loco Jen [id number] Joanna Li Notes Date Note Type Note [...] pattern). 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 Lavelle Beasley MD Attn: [place], [address] , [place] [facility] 15:21:29 2024 [...] pattern). Lavelle Beasley MD Attn: Accounting ,[address] [place], [address] , [place] [facility] 13:40:03 2024 [...] pattern). Lavelle Beasley MD Attn: Accounting ,[address] [place], [address] , [facility] 12:19:16 OBGyn Episode No OBEpisode recorded.
--- OUTSIDE RECORDS SUMMARY | 2024-04-26 00:21 | XMS_ITS | Encounter Summary ---
Author Organization [facility] Care Team Providers Care Manager Floral Name Role Phone Parish Amanda Primary Care Provider [phone] Pérez Thakur MD Unavailable [phone] Parish Amanda Primary Care Provider [phone] Encounter Details Date Type Department Care Team (Latest Contact Info) Description 03/24/2017 Orders Only [facility] ProviderRomán MD [address] [place] [address] Social History Tobacco Use Types Packs/Day Years Used Date Smoking Tobacco: Never Assessed Comments Unknown Sex and Gender Information Value Date Recorded Sex Assigned at Not on file Legal Sex Female 10:44 AM 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 Historical Provider Final Res ult documented in this encounter Visit Diagnoses Not on filedocumented in this encounter Care Teams Manager Floral Relationship Specialty Start Date End Date Parish Amanda PA PCP - General 09/16/18 10/28/23 Parish Amanda PA [address] [facility] [address] [place], [place] [address] PCP - General Family Medicine 04/13/24 Pérez Thakur MD [address] [place] [address] Consulting Physician General Surgery 03/27/21 documented as of this encounter
--- OUTSIDE RECORDS SUMMARY | 2024-04-26 00:21 | XMS_ITS | Clinical Summary ---
Author Organization [facility] Address [address] [facility] [place] [address] Care Team Providers Care Numerical Control Operator Name Role Phone Amado High MD Unavailable [phone] Parish Amanda PA-C Primary Care Provider [phone] Source Comments [facility],non-owned Affiliates and Associated Physician Practices is amultiple site organization consisting of ambulatory clinics and hospital sitesin [place], [place], [place] and [place]. This disclosure is being madepursuant to the Care Everywhere program and may not contain all information available regarding this patient. 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
--- OUTSIDE RECORDS SUMMARY | 2024-04-26 00:21 | XMS_ITS | Clinical Summary ---
Author Organization [place] [id number] [facility] Address [address] [place] [address] Care Team Providers Care Tip Finisher Name Role Phone Pérez Thakur MD Unavailable [phone] Parish Amanda Primary Care Provider [phone] Allergies No known active allergies Medications estradiol [...] 04/25/2020 Assessment & Plan (01/18/2021 10:34 AM SUPERVISOR MALTED MILK): This was not an issue at this [...] exercise Assessment & Plan (01/16/2022 10:46 AM SUPERVISOR MALTED MILK): CPM and exercise Assessment & Plan (07/17/2021 9:38 AM CDT): CPM and due for bone density Assessment & Plan (06/27/2021 11:06 AM CDT): Continue medications diet vitamin-D calcium and exercise Assessment & Plan (07/13/2020 1:38 PM CDT): This is currently controlled with medications continue to follow and exercise Assessment & Plan (01/12/2020 2:11 PM SUPERVISOR MALTED MILK): Continue vitamin-D and calcium, she is scheduled for a bone density Assessment & Plan (07/13/2019 2:25 PM CDT): Vitamin D and calcium Palpitations 03/25/2016 Assessment & Plan (07/21/2023 6:21 AM CDT): This is a well controlled chronic condition we will continue to follow. Assessment & Plan (06/12/2023 10:48 AM CDT): Resolved with K+ use. Patient to follow up Dr. Salazar wood gluer on 07/17/2023. Patient to return to ER [...] follow Assessment & Plan (01/16/2022 10:46 AM SUPERVISOR MALTED MILK): Well controlled Assessment & Plan (07/17/2021 9:37 AM CDT): Appears to have had a reaction possible to new medications, will hold and go back to atenolol until her f/u Assessment & Plan (06/27/2021 11:06 AM CDT): This is currently controlled with medications will continue to follow Assessment & Plan (01/18/2021 10:34 AM SUPERVISOR MALTED MILK): This is currently well controlled Assessment & Plan (07/13/2020 1:38 PM CDT): This is well controlled medications patient does see Cardiology follow-up routine Assessment & Plan (01/12/2020 2:11 PM SUPERVISOR MALTED MILK): These are currently well controlled Assessment & [...] routine Assessment & Plan (01/16/2022 10:45 AM SUPERVISOR MALTED MILK): Images from the original note were not [...] routine Assessment & Plan (01/18/2021 10:34 AM SUPERVISOR MALTED MILK): This is a stable chronic condition. Monitor [...] routine Assessment & Plan (01/12/2020 2:11 PM SUPERVISOR MALTED MILK): Images from the original note were not [...] follow Assessment & Plan (01/16/2022 10:45 AM SUPERVISOR MALTED MILK): Controlled, will follow, no si/hi Assessment & Plan (07/17/2021 9:38 AM CDT): Appears controlled, unsure if recent incident in ER was partially anxiety, will follow, well collected in clinic Assessment & Plan (06/27/2021 11:06 AM CDT): This is well controlled will continue to follow Assessment & Plan (01/18/2021 10:33 AM SUPERVISOR MALTED MILK): This is no longer an issue Assessment & Plan (07/27/2020 3:21 PM CDT): Well controlled Assessment & Plan (07/13/2020 1:37 PM CDT): This is currently well controlled we will continue to follow Assessment & Plan (05/22/2020 10:31 AM CDT): This is currently controlled off meds, we will continue to follow Assessment & Plan (01/12/2020 2:10 PM SUPERVISOR MALTED MILK): Patient is wanting to wean herself off [...] routine. Assessment & Plan (01/16/2022 10:46 AM SUPERVISOR MALTED MILK): Patient is to continue present medications, work [...] routine. Assessment & Plan (01/18/2021 10:34 AM SUPERVISOR MALTED MILK): Patient is to continue present medications, work [...] routine. Assessment & Plan (01/12/2020 2:11 PM SUPERVISOR MALTED MILK): Patient is to continue present medications, work [...] understanding Assessment & Plan (01/16/2022 10:45 AM SUPERVISOR MALTED MILK): Images from the original note were not [...] understanding Assessment & Plan (01/18/2021 10:34 AM SUPERVISOR MALTED MILK): Images from the original note were not [...] understanding Assessment & Plan (01/12/2020 2:11 PM SUPERVISOR MALTED MILK): Images from the original note were not [...] Department Care Team Description 04/13/2024 7:05 AM SUPERVISOR MALTED MILK Lab [facility] Building [address] [address] from Last 3 Months Immunizations Immunization Administration [...] 06/18/2018,04/17/2018 Surgical History Surgery Date Site/Laterality Comments IN ARTHROPLASTY KNEE TIBIAL PLATEAU Knee Replacement - [...] on file Legal Sex Female 10:44 AM SUPERVISOR MALTED MILK Gender Identity Female 02/21/2021 1:01 PM SUPERVISOR MALTED MILK Sexual Orientation Not on file Obstetrics History [...] 07/13/2020, 10/11 Medical Devices Implanted Type Area Specialty Trimmer Device Identifier Shelf Expiration Date Model / Serial / Lot Med[employer] [id number] Surgisis Biodesign 10x7cm 4 Sheet Freeze Dried Graft Soft Tissue - [id number] - [id number] Implanted:Qty: 1 on 08/06/2017 by Naga Zelaya MD at [facility] Graft N/A: Stomach [employer] 04/24/2018 [id number] / [id number] / [id number] Joints Bilateral: Knee Medtronic Inc [id number] Progrip [id number] Self Fixate Monofilament Inspection Supervisor Mesh Surgical - [id number] Implanted:Qty: 1 on 03/27/2021 by Pérez Thakur MD at [facility] [employer] [id number] 09/10/2023 LP [id number] / / Procedures Procedure Name Priority Date/Time Associated Diagnosis Comments EGFR Routine 04/13/2024 7:17 AM SUPERVISOR MALTED MILK COMPREHENSIVE METABOLIC PANEL Routine 04/13/2024 7:17 AM SUPERVISOR MALTED MILK LIPID PANEL Routine 04/13/2024 7:17 AM SUPERVISOR MALTED MILK DEXA AXIAL SKELETON BONE DENSITY 1 OR MORE SITES Schedule Routine, Read Routine (OP Routine) 07/10/2022 8:05 AM CDT Asymptomatic menopausal state from Last 3 Months or Most Recently Relevant to Health Maintenance Results * eGFR (04/13/2024 7:17 AM SUPERVISOR MALTED MILK) eGFR 87 >=60 mL/min/1. 73 m2 Comment: [...] was last reviewed 2020. Testing performed by: [facility], [address] [place] [address]., [address] Blood 04/13/2024 7:17 AM SUPERVISOR MALTED MILK 04/13/2024 9:44 AM SUPERVISOR MALTED MILK us Lavelle Beasley MD LAB BLOOD ORDERABLES Fi nal Result [facility] RANDOLPH [address] [facility] Department [place] [address] * Lipid panel (04/13/2024 7:17 AM SUPERVISOR MALTED MILK) Cholesterol 177 30 - 199 mg/dL Comment: [...] last revised on 2017. Testing performed by: [facility], [address] [place] [address]., [address] Triglycerides 104 <=149 mg/dL [facility] Comment: [...] last revised on 2017. Testing performed by: [address] [address] HDL 62 >=40 mg/dL [facility] Comment: Interpretive [...] last revised on 2017. Testing performed by: [address] [address] LDL, calculated 96 <=129 mg/dL [facility] Comment: [...] last revised on 2023. Testing performed by: [address] [address] Non-HDL Cholesterol 115 mg/dL [facility] Comment: Interpretive [...] last revised on 2017. Testing performed by: [address] [address] Chol/HDL ratio 3 [facility] Comment:Testing performed by : [address] [address] Blood 04/13/2024 7:17 AM SUPERVISOR MALTED MILK 04/13/2024 9:44 AM SUPERVISOR MALTED MILK us Lavelle Mari Beasley MD LAB BLOOD ORDERABLES Fi nal Result [facility] [address] [facility] Department [place] [address] * Comprehensive metabolic panel (04/13/2024 7:17 AM SUPERVISOR MALTED MILK) Sodium 141 135 - 145 mmol/L Comment:Testing performed by : [address] [address] Potassium, pl 4.0 3.3 - 4.9 mmol/L [facility] Comment:Testing performed by : [address] [address] Chloride 105 97 - 110 mmol/L [facility] Comment:Testing performed by : [address] [address] CO2 26 22 - 32 mmol/L [facility] Comment:Testing performed by : [address] [address] Anion gap 10 2 - 15 mmol/L [facility] Comment:Testing performed by : [address] [address] BUN 13 6 - 25 mg/dL [facility] Comment:Testing performed by : [address] [address] Creatinine 0.70 0.60 - 1.10 mg/dL [facility] Comment:Testing performed by : [address] [address] Glucose 90 70 - 199 mg/dL [facility] Comment: Interpretive Data Fasting glucose >/= 126 [...] was last revised 2022. Testing performed by: [address] [address] Calcium 10.2 8.5 - 10.3 mg/dL [facility] Comment:Testing performed by : [address] [address] Bilirubin, total 1.1 0.1 - 1.2 mg/dL [facility] Comment:Testing performed by : [address] [address] Protein, pl 7.0 6.5 - 8.5 g/dL [facility] Comment:Testing performed by : [address] [address] Albumin 4.0 3.5 - 5.0 g/dL [facility] Comment:Testing performed by : [address] [address] Alk phos 81 40 - 130 Units/L [facility] Comment:Testing performed by : [address] [address] ALT 14 7 - 45 Units/L [facility] Comment:Testing performed by : [address] [address] AST 22 10 - 45 Units/L [facility] Comment:Testing performed by : [address] [address] Blood 04/13/2024 7:17 AM SUPERVISOR MALTED MILK 04/13/2024 9:44 AM SUPERVISOR MALTED MILK Lavelle Beasley MD LAB BLOOD ORDERABLES Fi nal Result [facility] RANDOLPH [address] [facility] Department [place] [address] * Dexa Axial Skeleton Bone Density 1 or 2 Site (07/10/2022 8:05 AM CDT) Anatomical Region Laterality Modality Body N/A Mammography 07/10/2022 9:06 PM CDT Narrative 07/10/2022 9:08 PM CDT EXAM DESCRIPTION: DEXA AXIAL SKELETON BONE DENSITY 1 OR MORE SITES REASON FOR STUDY: 76 y/o year old F with given history of screening. Postmenopausal Specialty Trimmer/Model: [employer] A (S/N [id number]) CLINICAL INFORMATION: Current height: 63.5 inches Maximum [...] Tyler Levy M.D. MF: ROSALIE Report ID: [id number] Reading Location: [address] Note Tyler Levy MD - 07/10/2022 EXAM DESCRIPTION: DEXA AXIAL SKELETON BONE DENSITY 1 OR MORE SITES REASON FOR STUDY: 76 y/o year old F with given history of screening. Postmenopausal Specialty Trimmer/Model: H[employer] Horizon A (S/N [id number]) CLINICAL INFORMATION: Current height: 63.5 inches Maximum [...] Tyler Levy M.D. MF: ROSALIE Report ID: [id number] Reading Location: [place] [address] Katarina Nguyen MD IM DXA PROCEDURES Final Result from Last 3 Months or Most Recently Relevant to Health Maintenance Insurance [employer] MEDICARE [facility] MEDICARE [facility] MEDICARE Advance Directives For more information, please contact: [phone] * Full Code (Latest Code Status on File) Date Activated Date Inactivated Comments 08/13/2017 10:42 AM 08/14/2017 12:45 PM * Full Code Date Activated Date Inactivated Comments 08/06/2017 3:28 PM 08/08/2017 4:15 PM Care Teams Tip Finisher Relationship Specialty Start Date End Date Parish Amanda PA [facility] [address] [address] PCP - General Family Medicine 04/13/24 Pérez Thakur MD [address] [address] Consulting Physician General Surgery 03/27/21
--- OUTSIDE RECORDS SUMMARY | 2024-04-26 00:21 | XMS_ITS ---
Author Organization [facility] Address [address] [place], [place] [address] Care Team Providers Care Pastry Sous Chef Name Role Phone RUDY MAS Unavailable [phone] Parish Amanda Unavailable Unavailable REASON FOR VISIT Patient returns 1 week s/p exostectomy of her 2nd digit. She is doing well Medications Medication SIG (Take, Route, Frequency, Duration) Notes Start Date End Date Status atorvastatin 10 MG Oral Tablet [Lipitor] ORAL atorvastatin 10 MG Oral Tabl et [Lipitor]Original Medicationatorvastatin 10 MG Oral Tablet [Lipitor] *Reorder from [employer] for eRx and Interaction Alerts* 015 Active esomeprazole 40 MG Delayed Release Oral Capsule [Nexium] ORAL esomeprazole 40 MG Delayed Release Oral Capsule [Nexium]Original Medicationesomeprazole 40 MG Delayed Release Oral Capsule [Nexium] *Reorder from [employer] for eRx and Interaction Alerts* 015 Active Atenolol 25 MG Oral Tablet ORAL atenolol 25 MG Oral TabletOriginal Medicationatenolol 25 MG Oral Tablet *Reorder from [employer] for eRx and Interaction Alerts* 015 Active [...] Location Date Provider Diagnosis [facility] [address] [facility] [address] [place], [place] [id number] 12/24/2023 RUDY MAS Osteophyte, left foot M25.775 [...] Notes * ANSHUL GREGORIODOB:1945 (78 yo F)Acc No.[id number]:12/24/2023 Patient: ANSHUL GARZA Provider: Anthony Mas DPM :1945 A ge:78 Y S ex:Female Date:12/24/2023 Address:[place], [id number] Subjective: * Chief Complaints: * Albert eng [...] Medicationatenolol 25 MG Oral Tablet *Reorder from [facility] for eRx and Interaction Alerts*atorvastatin 10 MG Oral Tablet [Lipitor] ORAL , Notes to Pharmacist: atorvastatin 10 MG Oral Tablet [Lipitor]Original Medicationatorvastatin 10 MG Oral Tablet [Lipitor] *Reorder from [employer] for eRx and Interaction Alerts*esomeprazole 40 MG Delayed Release Oral Capsule [Nexium] ORAL , Notes to Pharmacist: esomeprazole 40 MG Delayed Release Oral Capsule [Nexium]Original Medicationesomeprazole 40 MG Delayed Release Oral Capsule [Nexium] *Reorder from [employer] for eRx and Interaction Alerts*hydrochlorothiazide 25 MG / lisinopril 20 MG Oral Tablet ORAL , Notes to Pharmacist: hydrochlorothiazide 25 MG / lisinopril 20 MG Oral TabletOriginal Medicationhydrochlorothiazide 25 MG / lisinopril 20 MG Oral Tablet *Reorder from [employer] for eRx and Interaction Alerts*raloxifene hydrochloride 60 MG Oral Tablet [Evista] ORAL , Notes to Pharmacist: raloxifene hydrochloride 60 MG Oral Tablet [Evista]Original Medicationraloxifene hydrochloride 60 MG Oral Tablet [Evista] *Reorder from [facility] for eRx and Interaction Alerts*HYDROcodone-Acetaminophen 5-325 MG [...] Information: * Visit Code: * Procedure Codes: 97256 POSTOP FOLLOW-UP VISIT. * ACTORY WORKER Sign off status: Completed true * Provider: Anthony Mas DPM Date: 1 02/22/2023 Generated for Oscar albarran/Juma/Олег on: 0 04/26/2024 12:20 AM CDT History [...]
--- OUTSIDE RECORDS SUMMARY | 2024-04-26 00:21 | XMS_ITS | Clinical Summary ---
Author Organization [facility] Address [facility] access hospital[address] [place] [address] Care Team Providers Care Hone Operator Name Role Phone Parish Amanda PA-C Primary Care Provider [phone] Lavelle Beasley MD Unavailable [phone] Allergies No known active allergies Medications [...] Comments Blood Pressure 133/64 12/19/2023 12:56 PM DEPOT MANAGER Pulse 63 12/19/2023 12:56 PM DEPOT MANAGER Temperature 35.8 C (96.5 F) 12/19/2023 12:56 PM DEPOT MANAGER Respiratory Rate 16 12/19/2023 12:56 PM DEPOT MANAGER Oxygen Saturation 96% 12/19/2023 12:56 PM DEPOT MANAGER Inhaled Oxygen Concentration - - Weight 79.6 kg (175 lb 7.8 oz) 12/19/2023 9:15 A M DEPOT MANAGER Height 165.1 cm (5' 5 ) 12/19/2023 9:15 AM DEPOT MANAGER Body Mass Index 29.2 12/19/2023 9:15 AM DEPOT MANAGER Plan of Treatment Health Maintenance Due Date [...] this topic Medical Devices Implanted Type Area General Dentist Device Identifier Shelf Expiration Date Model / Serial / Lot Knee Components Knee Components Implant Ar[employer] Toe Flexible Hinge Size 2s - [id number] Implanted:Qty : 1 on 10/04/2022 by Merlin Vega DPM at [facility] Toe Left: Foot [employer] [id number] 07/18/2030 [id number] / / [id number] Description:HINGE TOE Hammetoe Fixation Implanted:Qty : 1 on 10/04/2022 by Merlin Vega DPM at [facility] Toe Left: Foot [employer] [id number] 06/21/2025 [id number] / / [id number] Description:HAMMERTOE FIXATI ON Insurance A[employer] Care Teams Hone Operator Relationship Specialty Start Date End Date Parish Amanda PA-C PCP - General 07/28/15 Lavelle Beasley MD [address] [place], [place] [id number] CARDIOVASCULAR DISEASE 12/16/23
--- OUTSIDE RECORDS SUMMARY | 2024-04-26 00:21 | XMS_ITS | Patient Health Summary ---
Author Organization [facility] Address [address] [place] [address] Care Team Providers Care Welding Machine Operator/Tender Name Role Phone Amado High MD Unavailable [phone] Parish Amanda PA-C Primary Care Provider [phone] Note from [facility],non-owned Affiliates and Associated Physician Practices is amultiple site organization consisting of ambulatory clinics and hospital sitesin [place], [place], [place] and [place]. This disclosure is being madepursuant to the Care Everywhere program and may not contain all information available regarding this patient. Last updated 17.[facility] Allergies No known active allergies Medications * [...] Sex Assigned at Female 04/10/2020 5:07 PM FARM DEMONSTRATOR Gender Identity Female 04/10/2020 5:07 PM FARM DEMONSTRATOR Sexual Orientation Not on file Last Filed [...] PELVIS 1 OR 2VW (04/11/2020 12:45 PM FARM DEMONSTRATOR) Anatomical Region Laterality Modality Pelvis Computed Radiogr aphy Narrative 04/11/2020 12:46 PM FARM DEMONSTRATOR Phyllis Messer RT(R) 04/12/2020 5:18 PM See progress notes for results Holly Harrington PA-C DIAGNOSTIC IM AGING ORDERABLES * XR KNEE BILAT 3VW (04/11/2020 12:24 PM FARM DEMONSTRATOR) Only the most recent of4 resultswithin the time period is included. Anatomical Region Laterality Modality Lower Extremity Computed Radiogr aphy Narrative 04/11/2020 12:25 PM FARM DEMONSTRATOR Phyllis Messer RT(R) 04/12/2020 5:18 PM See progress notes for results Amado High MD DIAGNOSTIC IMAGING O RDERABLES * PATHOLOGY TISSUE FOR DERMATOLOGY (03/15/2013 12:00 AM FARM DEMONSTRATOR) Result CASE: [id number] PATIENT: JOANNA GREGORIO PATHOLOGIC DIAGNOSIS: Left outer lip: SOLAR ELASTOSIS (see microscopic description) CLINICAL DATA: R/O BCC, irritated, non-healing. GROSS DESCRIPTION: Received is one formalin filled container labeled with the patient's name and designated left outer lip. The specimen consists of a shave measuring 8x7k5xm 2x2x1 mm. Jar 0. MICROSCOPIC DESCRIPTION: The epidermis is unremarkable. The dermis shows a proliferation of elastic fibers in the superficial dermis that are increased in thickness. Tumor is not seen. Additional deeper sections were obtained and reviewed. Electronically signed out by Veronique Delcid M.D. 03/17/2013 2:58:51PM [facility] Comment: Performed at: Dermatopathology Laboratory [facility] Department of Dermatology [address] [place] [address], 5th [place] [address] Phone number: [phone] FAX: [phone] 03/15/2013 03/16/2013 Ashley Maza MD LAB - PATHOLOGY/CYT OLOGY ORDERABLES Performing Organization Address City/[facility]/ZIP Co de Phone Number [facility] [address] [place] [address]. 5th Floor Lab [address] [phone] * (ABNORMAL) HGB HCT PANEL (07/02/2008 2:20 AM CDT) Only the most recent of5 resultswithin the time period is included. Hemoglobin 9.6(L) 12.0 - 16.0 gm/dl [facility] Hematocrit 28.0(L) 36.0 - 48.0 % [facility] BLOOD SPECIMEN / Unknown 07/02/2008 2:20 AM CDT Amado High MD LAB - HEMATOLOGY ORD ERABLES [facility] [address] [place] [address] Care Teams Welding Machine Operator/Tender Relationship Specialty Start Date End Date Parish Amanda PA-C PCP - General 06/18/11 Amado High MD Orthopedic Surgery 06/18/11
--- OUTSIDE RECORDS SUMMARY | 2024-04-26 00:22 | XMS_ITS ---
Author Organization [facility] Address [address] [place], [place] [id number] Care Team Providers Care Mold Repairer Name Role Phone RUDY MAS Unavailable [phone] Parish Amanda Unavailable Unavailable REASON FOR VISIT Patient returns to the office 2.5 weeks s/p exostectomy of the 2nd digit. [facility] Medications Medication SIG (Take, Route, Frequency, Duration) Notes Start Date End Date Status Atenolol 25 MG Oral Tablet ORAL atenolol 25 MG Oral TabletOriginal Medicationatenolol 25 MG Oral Tablet *Reorder from [employer] for eRx and Interaction Alerts* 015 Active HYDROcodone-Acetaminop hen 5-325 MG 1 tablet as needed Orally every 6 hrs As needed for pain. 024 Active raloxifene hydrochloride 60 MG Oral Tablet [Evista] ORAL raloxifene hydrochloride 60 MG Oral Tablet [Evista]Original Medicationraloxifene hydrochloride 60 MG Oral Tablet [Evista] *Reorder from [employer] for eRx and Interaction Alerts* 015 Active hydrochlorothiazide 25 MG / lisinopril 20 MG Oral Tablet ORAL hydrochlorothiazide 25 MG / lisinopril 20 MG Oral TabletOriginal Medicationhydrochlorothiazide 25 MG / lisinopril 20 MG Oral Tablet *Reorder from [employer] for eRx and Interaction Alerts* 015 Active esomeprazole 40 MG Delayed Release Oral Capsule [Nexium] ORAL esomeprazole 40 MG Delayed Release Oral Capsule [Nexium]Original Medicationesomeprazole 40 MG Delayed Release Oral Capsule [Nexium] *Reorder from [employer] for eRx and Interaction Alerts* 015 Active atorvastatin 10 MG Oral Tablet [Lipitor] ORAL atorvastatin 10 MG Oral Tabl et [Lipitor]Original Medicationatorvastatin 10 MG Oral Tablet [Lipitor] *Reorder from [employer] for eRx and Interaction Alerts* 015 Active Encounters Encounter Location Date Provider Diagnosis [facility] [address] [place], [place] [id number] 12/31/2023 RUDY TG Osteophyte, left foot M25.775 [...] Notes * ANSHUL GREGORIODOB:1945 (78 yo F)Acc No.[id number]:12/31/2023 Patient: ANSHUL GARZA Provider: Anthony Mas DPM :1945 A ge:78 Y S ex:Female Date:12/31/2023 Address:[address] [place] [address], [facility] [place] [id number] Subjective: * Chief Complaints: * P atient [...] Medicationatenolol 25 MG Oral Tablet *Reorder from [email or web address] for eRx and Interaction Alerts*atorvastatin 10 MG Oral Tablet [Lipitor] ORAL , Notes to Pharmacist: atorvastatin 10 MG Oral Tablet [Lipitor]Original Medicationatorvastatin 10 MG Oral Tablet [Lipitor] *Reorder from [employer] for eRx and Interaction Alerts*esomeprazole 40 MG Delayed Release Oral Capsule [Nexium] ORAL , Notes to Pharmacist: esomeprazole 40 MG Delayed Release Oral Capsule [Nexium]Original Medicationesomeprazole 40 MG Delayed Release Oral Capsule [Nexium] *Reorder from [employer] for eRx and Interaction Alerts*hydrochlorothiazide 25 MG / lisinopril 20 MG Oral Tablet ORAL , Notes to Pharmacist: hydrochlorothiazide 25 MG / lisinopril 20 MG Oral TabletOriginal Medicationhydrochlorothiazide 25 MG / lisinopril 20 MG Oral Tablet *Reorder from [employer] for eRx and Interaction Alerts*raloxifene hydrochloride 60 MG Oral Tablet [Evista] ORAL , Notes to Pharmacist: raloxifene hydrochloride 60 MG Oral Tablet [Evista]Original Medicationraloxifene hydrochloride 60 MG Oral Tablet [Evista] *Reorder from [email or web address] for eRx and Interaction Alerts*HYDROcodone-Acetaminophen 5-325 MG Tablet 1 tablet as needed Orally every 6 hrs As needed for pain.Medication List reviewed and reconciled with the patientTaking Atenolol 25 MG Oral Tablet ORAL , Notes to Pharmacist: atenolol 25 MG Oral TabletOriginal Medicationatenolol 25 MG Oral Tablet *Reorder from [facility] for eRx and Interaction Alerts*Taking atorvastatin 10 MG Oral Tablet [Lipitor] ORAL , Notes to Pharmacist: atorvastatin 10 MG Oral Tablet [Lipitor]Original Medicationatorvastatin 10 MG Oral Tablet [Lipitor] *Reorder from [facility] for eRx and Interaction Alerts*Taking esomeprazole 40 MG Delayed Release Oral Capsule [Nexium] ORAL , Notes to Pharmacist: esomeprazole 40 MG Delayed Release Oral Capsule [Nexium]Original Medicationesomeprazole 40 MG Delayed Release Oral Capsule [Nexium] *Reorder from [facility] for eRx and Interaction Alerts*Taking hydrochlorothiazide 25 MG / lisinopril 20 MG Oral Tablet ORAL , Notes to Pharmacist: hydrochlorothiazide 25 MG / lisinopril 20 MG Oral TabletOriginal Medicationhydrochlorothiazide 25 MG / lisinopril 20 MG Oral Tablet *Reorder from [facility] for eRx and Interaction Alerts*Taking raloxifene hydrochloride 60 MG Oral Tablet [Evista] ORAL , Notes to Pharmacist: raloxifene hydrochloride 60 MG Oral Tablet [Evista]Original Medicationraloxifene hydrochloride 60 MG Oral Tablet [Evista] *Reorder from [facility] for eRx and Interaction Alerts*Taking HYDROcodone-Acetaminophen [...] Information: * Visit Code: * Procedure Codes: 21259 POSTOP FOLLOW-UP VISIT. * LER AND REAMER Sign off status: Completed true * Provider: Anthony Mas DPM Date: 03/01/2023 Generated for Oscar Raymond on: 0 04/26/2024 12:21 AM CDT History and Physical Notes * [...]
--- OUTSIDE RECORDS SUMMARY | 2024-04-26 00:22 | XMS_ITS | Patient Health Record ---
Author Organization [facility] Address [address] [place], [place] [id number] Care Team Providers Care Cask Maker Name Role Phone RUDY MAS Unavailable [phone] Parish Amanda Unavailable Unavailable Allergies No Known Allergies Reason For Referral No Information Medications Medication SIG (Take, Route, Frequency, Duration) Notes Start Date End Date Status raloxifene hydrochloride 60 MG Oral Tablet [Evista] ORAL raloxifene hydrochloride 60 MG Oral Tablet [Evista]Original Medicationraloxifene hydrochloride 60 MG Oral Tablet [Evista] *Reorder from [employer] for eRx and Interaction Alerts* 015 Active HYDROcodone-Acetaminop hen 5-325 MG 1 tablet as needed Orally every 6 hrs As needed for pain. 024 Active atorvastatin 10 MG Oral Tablet [Lipitor] ORAL atorvastatin 10 MG Oral Tabl et [Lipitor]Original Medicationatorvastatin 10 MG Oral Tablet [Lipitor] *Reorder from [employer] for eRx and Interaction Alerts* 015 Active Atenolol 25 MG Oral Tablet ORAL atenolol 25 MG Oral TabletOriginal Medicationatenolol 25 MG Oral Tablet *Reorder from [employer] for eRx and Interaction Alerts* 015 Active hydrochlorothiazide 25 MG / lisinopril 20 MG Oral Tablet ORAL hydrochlorothiazide 25 MG / lisinopril 20 MG Oral TabletOriginal Medicationhydrochlorothiazide 25 MG / lisinopril 20 MG Oral Tablet *Reorder from [employer] for eRx and Interaction Alerts* 015 Active esomeprazole 40 MG Delayed Release Oral Capsule [Nexium] ORAL esomeprazole 40 MG Delayed Release Oral Capsule [Nexium]Original Medicationesomeprazole 40 MG Delayed Release Oral Capsule [Nexium] *Reorder from [employer] for eRx and Interaction Alerts* 015 Active Vital Signs Height-cm 167.64 cm 02/25/2024 Weight-kg 77.11 kg 02/25/2024 Height 66.00 in 02/25/2024 Weight 170 lbs 02/25/2024 BMI 27.44 kg/m2 02/25/2024 Encounters Encounter Location Date Provider Diagnosis [address] [id number] 12/19/2023 RUDY SNOOK [facility] [address] [place], [place] [id number] 09/24/2023 RUDY SNOOK Osteophyte, left foot M25.775 ; Acquired keratosis [keratoderma] palmaris et plantaris L85.1 and Pain in left toe(s) M79.675 [facility] [address] [place], [place] [id number] 10/15/2023 RUDY SNOOK Osteophyte, left foot M25.775 ; Acquired keratosis [keratoderma] palmaris et plantaris L85.1 and Pain in left toe(s) M79.675 [facility] [address] [place], [place] [id number] 10/28/2023 RUDY SNOOK Osteophyte, left foot M25.775 ; Acquired keratosis [keratoderma] palmaris et plantaris L85.1 ; Pain in left toe(s) M79.675 and Encounter for other specified surgical aftercare Z48.89 [facility] [address] [place], [place] [id number] 11/05/2023 RUDY SNOOK Osteophyte, left foot M25.775 ; Acquired keratosis [keratoderma] palmaris et plantaris L85.1 and Pain in left toe(s) M79.675 [facility] [address] [place], [place] [id number] 12/24/2023 RUDY SNOOK Osteophyte, left foot M25.775 and Encounter for other specified surgical aftercare Z48.89 [facility] [address] [place], [place] [id number] 12/31/2023 RUDY SNOOK Osteophyte, left foot M25.775 and Encounter for other specified surgical aftercare Z48.89 [facility] [address] [place], [place] [id number] 02/25/2024 RUDY SNOOK Ingrowing nail L60.0 ; Other hammer toe(s) (acquired), left foot M20.42 ; Pain in right toe(s) M79.674 and Encounter for other specified surgical aftercare Z48.89 [facility] [address] [place], [place] [id number] 12/17/2023 RUDY SNOOK [facility] [address] [place], [place] [id number] 09/24/2023 [facility] [address] [place], [place] [id number] 10/13/2023 Assessments Encounter Date Diagnosis (ICD Code) [...] the patient use an emollient such as [id number] Eucerin cream, Vanicream, or other lotion to [...] Start Date Coverage End Date [address] [place] [phone] [id number] ANSHUL GREGORIO Self - patient is the insured Medical (General) History Medical History History ICD Code acid reflux artificial joint GERD Leg/Feet cramps Back Trouble hypertension Surgical History Surgery Date(Month/Year) Knee Surgery Hernia
--- NOTE | 2024-04-26 06:57 | WPDANESEPPF ---
Anes - Initial Pre Proc Eval Procedure: Operation Date: 04/26/24 09:00 Proposed Procedures p Hysteroscopy Dilation and Curettage - Katarina Nguyen MD Date/Time: 04/26/24 06:57 Surgeon: Katarina Nguyen MD Pre Op Diagnosis: post menopausal bleeding Patient Data Age: 78 Gender: F Height: 1.65 m Weight: 79 kg Allergies Allergy/AdvReac Type Severity Reaction Status Date / Time No Known Allergies Allergy Verified 04/07/24 15:24 Home Medications ?Medication ?Instructions ?Recorded ?Confirmed ?Type atenolol 25 mg tablet 37.5 mg PO DAILY 10/27/21 04/07/24 History atorvastatin 10 mg tablet 10 mg PO DAILY 10/27/21 04/07/24 History hydrochlorothiazide 12.5 mg tablet 12.5 mg PO QAM 10/27/21 04/07/24 History raloxifene 60 mg tablet 60 mg PO DAILY 10/27/21 04/07/24 History estradiol 10 mcg vaginal tablet See Rx Instructions .Route .COMPLEX 10/28/22 04/07/24 History (Vagifem) ascorbic acid (vitamin C) 1,000 mg 1 g PO DAILY 04/07/24 04/07/24 History capsule calcium carb-ergocalciferol (vit 2 tablet PO DAILY 04/07/24 04/07/24 History D2) 600 mg calcium-200 unit tablet cholecalciferol (vitamin D3) 25 1,000 unit PO DAILY 04/07/24 04/07/24 History mcg (1,000 unit) capsule coenzyme Q10 100 mg capsule 200 mg PO DAILY 04/07/24 04/07/24 History (CoQ-10) cyanocobalamin (vitamin B-12) 500 500 mcg PO DAILY 04/07/24 04/07/24 History mcg tablet flaxseed oil 1,000 mg capsule 1,200 mg PO DAILY 04/07/24 04/07/24 History geriatric multivitamin-min 1 tablet PO DAILY 04/07/24 04/07/24 History lisinopril 40 mg tablet 40 mg PO QAM 04/07/24 04/07/24 History magnesium glycinate 100 mg (as 400 mg PO DAILY 04/07/24 04/07/24 History glycinate) tablet Patient hx anesthesia problems: none Family hx anesthesia problems: none Results Review: All pre-operative results and documents have been reviewed as part of the pre-operative evaluation. [facility] Past Medical History Medical History (Updated 04/25/24 @ 10:44 by James Carr DO) GERD (gastroesophageal reflux disease) Hyperlipidemia Hypertension Surgical History Surgical History (Updated 04/25/24 @ 10:44 by James Carr DO) Status post Edilma fundoplication Social History Social History Smoking status: Never smoker Living arrangements: with family Additional living arrangements comments: [facility] Spiritual care concerns: No Anes - Eval Final PreProcedure Day of Procedure 04/26/24 06:57 Patient weight: overweight Heart: regular rate and rhythm Lungs: clear to auscultation Airway: Mallampati scale class II Neurological: alert and oriented Last oral intake: >/= 8 hours ASA classification: II Emergent: no Anesthetic plan: proceed Anesthesia type and monitoring: general GIVS and standard monitoring Results Review: All pre-operative results and documents have been reviewed as part of the pre-operative evaluation. Informed Consent: The patient's anesthetic plan and its attendant risks and benefits were discussed with the patient/family/POA. Questions were solicited and answers provided to the satisfaction of the patient/family/POA.
[2024-04-26 07:09] VITALS: BP 142/72; PULSE 58; RESP 16; TEMP 36.4; O2SAT 95
[2024-04-26] MEDS: ACETAMINOPHEN 500 MG TABLET 1000 MG PO (07:18)
--- NOTE | 2024-04-26 07:26 | WPDHPUPDATE1 ---
History and Physical Update Update Date/Time: 04/26/24 07:26 History and Physical has been reviewed, including an updated exam of the patient. There are NO changes in the patient's condition. Risks, benefits, and alternatives have been discussed and questions answered. Patient agrees to proceed with procedure.
--- NOTE | 2024-04-26 07:26 | PM.IMHP ---
H&P: HPI History of Present Illness Date/Time: 04/26/24 07:26 Chief Complaint: Postmenopausal bleeding Narrative: Patient is an 78-year-old who reported to the office with complaint of brown discharge. Patient states she had brown discharge that appeared to be old blood. Options were discussed with the patient and she will proceed with D&C hysteroscopy for further evaluation. Risks of infection, bleeding, perforation, and possible pathology are reviewed. Review of Systems Review of Systems: not repeated day of surgery; patient states no changes in status [facility] Past Medical History Medical History (Updated 04/26/24 @ 07:30 by Katarina Nguyen MD) (normal spontaneous vaginal delivery) x2 GERD (gastroesophageal reflux disease) Hyperlipidemia Hypertension Surgical History Surgical History (Updated 04/26/24 @ 07:29 by Katarina Nguyen MD) History of breast biopsy History of total bilateral knee replacement Status post Edilma fundoplication Social History Social History Smoking status: Never smoker Living arrangements: with family Additional living arrangements comments: [facility] Spiritual care concerns: No Meds Home Medications and Allergies Home Medications ?Medication ?Instructions ?Recorded ?Confirmed ?Type atenolol 25 mg tablet 37.5 mg PO DAILY 10/27/21 04/07/24 History atorvastatin 10 mg tablet 10 mg PO DAILY 10/27/21 04/07/24 History hydrochlorothiazide 12.5 mg tablet 12.5 mg PO QAM 10/27/21 04/07/24 History raloxifene 60 mg tablet 60 mg PO DAILY 10/27/21 04/07/24 History estradiol 10 mcg vaginal tablet See Rx Instructions .Route .COMPLEX 10/28/22 04/07/24 History (Vagifem) ascorbic acid (vitamin C) 1,000 mg 1 g PO DAILY 04/07/24 04/07/24 History capsule calcium carb-ergocalciferol (vit 2 tablet PO DAILY 04/07/24 04/07/24 History D2) 600 mg calcium-200 unit tablet cholecalciferol (vitamin D3) 25 1,000 unit PO DAILY 04/07/24 04/07/24 History mcg (1,000 unit) capsule coenzyme Q10 100 mg capsule 200 mg PO DAILY 04/07/24 04/07/24 History (CoQ-10) cyanocobalamin (vitamin B-12) 500 500 mcg PO DAILY 04/07/24 04/07/24 History mcg tablet flaxseed oil 1,000 mg capsule 1,200 mg PO DAILY 04/07/24 04/07/24 History geriatric multivitamin-min 1 tablet PO DAILY 04/07/24 04/07/24 History lisinopril 40 mg tablet 40 mg PO QAM 04/07/24 04/07/24 History magnesium glycinate 100 mg (as 400 mg PO DAILY 04/07/24 04/07/24 History glycinate) tablet Allergies Allergy/AdvReac Type Severity Reaction Status Date / Time No Known Allergies Allergy Verified 04/07/24 15:24 Exam Const: General: healthy appearing and alert Orientation/consciousness: patient oriented x3 Resp: Effort & Inspection: normal respiratory effort GI: GI Palp: Yes Soft to palpation, No Tenderness to palpation present (GI) and No Palpable mass present : External Female Exam: normal external appearance Speculum Exam - Vagina: normal appearance of the vagina and normal vaginal discharge Speculum Exam - Cervix: normal appearance of the cervix Bimanual exam- vagina & uterus: uterine size normal and consistency normal Bimanual Exam- Adnexa, other: normal adnexae and No adnexal tenderness Neuro: General: patient oriented x3 Assessment and Plan Assessment and plan (1) Post-menopausal bleeding: Code(s): N95.0 - Postmenopausal bleeding Status: Acute Assessment and Plan: Plan to proceed with a D&C hysteroscopy
[2024-04-26] MEDS: LACTATED RINGERS 1,000 ML 30 ML IV CONT (07:37)
[2024-04-26 07:41] VITALS: BMI 30.3
--- NOTE | 2024-04-26 09:19 | W.PM.PROC2 ---
Procedure Note - Detailed Date of Procedure 04/26/24 Pre-op Diagnosis post menopausal bleeding Post-op Diagnosis Same Procedure Performed D&C hysteroscopy Surgeon Katarina Nguyen MD Anesthesia MAC Findings Cervix is stenotic. Uterus sounds to 8cm and is grossly atrophic with no lesions. Description of Procedure The patient was taken to the operating room and placed under anesthesia in the dorsal lithotomy position. She was prepped and draped in usual sterile fashion. Selmer speculum was placed in the vagina and cervix was grasped on the anterior lip with a tenaculum. The external os and internal os are stenotic. The os Finders are used and the cervix was able to be entered. The uterus then sounded to 8cm. The diagnostic hysteroscope was placed and with no abnormalities noted is removed. The sharp curette was used to curette the endometrium until a good uterine cry was noted all areas. Instruments are removed. Sponge, needle, and instrument count are correct. Patient was awakened from anesthesia and taken to recovery in stable condition. Estimated Blood Loss 5 Drains No Packing No Pathology Yes (Endometrial curettings) Complications No immediate complications Condition Stable Disposition PACU
[2024-04-26 09:21] VITALS: BP 93/37; PULSE 53; RESP 18; O2SAT 99
--- NOTE | 2024-04-26 09:25 | SUR.OPER ---
Fluid Deficit 30
[2024-04-26 09:30] VITALS: BP 102/52; PULSE 52; RESP 16; O2SAT 97
[2024-04-26 09:45] VITALS: BP 127/55; PULSE 50; RESP 16; O2SAT 97
[2024-04-26] MEDS: oxyCODONE HCL (*CRX) 5 MG TAB IR PO (09:58)
[2024-04-26 10:15] VITALS: BP 119/63; PULSE 52
== END 2024-04-26 10:30 | disposition home or self-care (01) ==
PROVIDERS: PCP Physician Assistant; Visit Provider Obstetrics & Gynecology Gynecology
PROC: 0U5B8ZZ Destruction of Endometrium, Via Natural or Artificial Opening Endoscopic (ICD-10-PCS; CPT 58563; principal; 2024-04-26 09:00)
DX: N88.2 Stricture and stenosis of cervix uteri (principal); E78.5 Hyperlipidemia, unspecified; I10 Essential (primary) hypertension; K21.9 Gastro-esophageal reflux disease without esophagitis; Z79.810 Long term (current) use of selective estrogen receptor modulators (SERMs); Z98.890 Other specified postprocedural states
CPT/HCPCS: 58558; 88305; A9270; J2003; J2704; J7120